=== PATIENT | female | born 1955 | race Caucasian/White ===

== ENCOUNTER 2016-11-05 15:15 | Emergency (ER) | payer OTHER ==
[2016-11-05 15:25] VITALS: BP 121/93; PULSE 90; TEMP 98.3; BMI 25.0
[2016-11-05] MEDS ORDERED: ACETAMINOPHEN 325 MG TABLET (FP) PO ONE (16:20)
[2016-11-05] MEDS ORDERED: ACETAMINOPHEN 325 MG TABLET (FP) ONE (16:24)
--- NOTE | 2016-11-05 16:32 | PDOC ---
History of Present Illness - General Chief Complaint: Injury Stated Complaint: FELL Time Seen by Provider: 11/05/16 15:50 History Source: Patient Exam Limitations: No Limitations - History of Present Illness Initial Comments: 11/05/16 16:24 61 yr female states she was walking on the sidewalk and a child ran into her causing her to fall striking her right forehead and right side breast, knee on sidewalk. No LOC, pt c/o pain to forehead and knee, right chest wall. no dizzyness or headache. Occurred: reports: just prior to arrival Severity: reports: mild Pain Location: reports: face Method of Injury: Yes: fall Loss of Consciousness: no loss of consciousness Past History - Past Medical History Allergies/Adverse Reactions: Allergies Allergy/AdvReac Type Severity Reaction Status Date / Time No Known Allergies Allergy Verified 11/05/16 15:21 Home Medications: Ambulatory Orders Cephalexin [Keflex] 500 mg PO BID #14 capsule 06/05/16 Silver Sulfadiazine 1% Top Cr [Silvadene -] 1 applic TP BID #2 jar 06/05/16 Other medical history: denies - Psycho/Social/Smoking Cessation Hx Anxiety: No Suicidal Ideation: No Smoking History: Never smoked Have you smoked in the past 12 months: No Information on smoking cessation initiated: No Hx Alcohol Use: No Drug/Substance Use Hx: No Substance Use Type: None Trauma Specific PMHX - Complaint Specific PMHX Arthritis: No Back Injury: No Neck Injury: No Hx Sacro Iliac Joint Dysfunction: No Review of Systems - Review of Systems Able to Perform ROS?: Yes Is the patient limited Algerian proficient: No Constitutional: No: Symptoms Reported HEENTM: No: Symptoms Reported Respiratory: No: Symptoms reported Cardiac (ROS): No: Symptoms Reported ABD/GI: No: Symptoms Reported : No: Symptoms Reported Musculoskeletal: Yes: See HPI *Physical Exam - Vital Signs Last Vital Signs Temp Pulse Resp BP Pulse Ox 98.3 F 90 20 121/93 96 11/05/16 15:22 11/05/16 15:22 11/05/16 15:22 11/05/16 15:22 11/05/16 15:22 - Physical Exam General Appearance: Yes: Nourished, Appropriately Dressed HEENT: positive: EOMI, HUNTER, Normal ENT Inspection, TMs Normal, Pharynx Normal, Other (right temporal area with brusing, swelling abrasion 2cm x2cm) Respiratory/Chest: positive: Chest Tender (under right breast ), Lungs Clear, Normal Breath Sounds Cardiovascular: positive: Regular Rhythm, Regular Rate Gastrointestinal/Abdominal: positive: Normal Bowel Sounds, Soft. negative: Tender Musculoskeletal: positive: Normal Inspection Extremity: positive: Normal Capillary Refill, Normal Inspection, Other ( abrasion right knee , nv intact FROM ) Integumentary: positive: Normal Color, Dry, Warm, Ecchymosis (right temporal area ), Bruising Neurologic: positive: Fully Oriented, Alert, Normal Mood/Affect, Normal Response , Motor Strength 10/11 ED Treatment Course - RADIOLOGY Radiology Studies Ordered: Category Date Time Status HEAD CT WITHOUT CONTRAST [CT] Stat CT Scan 11/05/16 16:19 Ordered CHEST PA & LAT [RAD] Stat Radiology 11/05/16 16:19 Ordered RIBS RIGHT SIDE [RAD] Stat Radiology 11/05/16 16:19 Ordered Medical Decision Making - Medical Decision Making 11/05/16 16:35 cc: trip and fall injured right forehead/voodoo area, right knee andright chest breast area no bruising on breast or chest area abrasion to forehead, pt states tetanus is UTD pt has FROM of the right knee, mild abrasion to the knee seen wound care performed, ice pack placed, tylenol and xrays, head ct done 11/05/16 17:[address] is negative will dc home with strict follow up with PMD tomorrow *DC/Admit/Observation/Transfer Diagnosis at time of Disposition: Multiple contusions Fall Qualifiers: Encounter type: initial encounter Qualified Code(s): W19.XXXA - Unspecified fall, initial encounter - Discharge Dispostion Disposition: HOME Condition at time of disposition: Good - Referrals Referrals: Prince Mcintyre MD [Primary Care Provider] - - Patient Instructions Additional Instructions: apply ice every 2hrs for 20 minutes to the face keep clean with soap and water take motrin 600mg every 6hrs for pain as needed follow with your DOCTOR TOMORROW for a follow up exam, this is important to continue your evaluation Return to ER for any worsening symptoms - Post Discharge Activity Work/School Note: Back to Work
== END 2016-11-05 17:56 | disposition home or self-care (01) ==
LOC: JERFT 15:15
DX: S00.83XA Contusion of other part of head, initial encounter (principal); S20.01XA Contusion of right breast, initial encounter; S80.01XA Contusion of right knee, initial encounter; W03.XXXA Other fall on same level due to collision with another person, initial encounter; Y93.01 Activity, walking, marching and hiking; Y92.480 Sidewalk as the place of occurrence of the external cause
CPT/HCPCS: 70450-TC; 71020-TC; 71101-TC-RT; 73562-TC-RT; 99281-25

== ENCOUNTER 2018-02-11 13:53 | Inpatient (IN) | payer OTHER ==
[2018-02-11 13:58] VITALS: BMI 24.1
--- NOTE | 2018-02-11 16:34 | PDOC ---
History of Present Illness - General Chief Complaint: Pain Stated Complaint: ABD PAIN (PCP SENT) Time Seen by Provider: 02/11/18 16:34 History Source: Patient, Spouse Exam Limitations: No Limitations - History of Present Illness Initial Comments: 02/11/18 16:50 62 year old female with no PMH sent to ED by dr. Mcintyre for abdominal pain x1 week. She states her abdominal pain is diffuse, non-radiating, described as "feeling like gas", no alleviating or aggravating factors. She also admits to nausea, vomiting, sweats, dysuria. She denies diarrhea, blood in stool, chest pain, shortness of breath, headache, fever, chills. Last BM Friday. She sates she had a RUQ US performed 02/06/18, report states: gallbladder polyps, no cholelithiasis, diffuse fatty liver infiltration. She states she has a CT of her abdomen scheduled for next Friday, but her pain has persisted and she came to the ED. Last ate at 1100 am today. Allergies - NKDA Denies nicotine use. Denies everyday etoh use. Denies illicit drug use. PCP - Miguelina Past History - Past Medical History Allergies/Adverse Reactions: Allergies Allergy/AdvReac Type Severity Reaction Status Date / Time No Known Allergies Allergy Verified 02/11/18 13:58 Home Medications: Ambulatory Orders NK [No Known Home Medication] 02/11/18 COPD: No - Suicide/Smoking/Psychosocial Hx Smoking History: Never smoked Have you smoked in the past 12 months: No Hx Alcohol Use: No Drug/Substance Use Hx: No Substance Use Type: None Review of Systems - Review of Systems Able to Perform ROS?: Yes Comments:: 02/11/18 16:53 General: denies fever, chills, night sweats, generalized weakness. HEENT: denies sore throat, rhinorrhea, ear pain. Heart: denies chest pain, palpitations, syncope, lower extremity swelling, diaphoresis. Respiratory: denies shortness of breath, cough, sputum production, hematemesis. Abdomen: admits to abdominal pain, nausea, vomiting. denies diarrhea, constipation, blood in stool. : admits to dysuria. denies increased urinary frequency, hematuria, urinary incontinence, flank pain. Back: denies back pain. Musculoskeletal: denies joint pain, muscle pain, joint swelling. Neurological: denies headache, dizziness, numbness, tingling, weakness. Skin: denies rash, laceration, abrasion. *Physical Exam - Vital Signs Last Vital Signs Temp Pulse Resp BP Pulse Ox 99.3 F 96 H 18 123/73 97 02/11/18 13:54 02/11/18 13:54 02/11/18 13:54 02/11/18 13:54 02/11/18 13:54 - Physical Exam Comments: 02/11/18 17:04 Appearance: comfortable. HEENT: head is normocephalic, atraumatic. EOMI. PERRLA. oral mucosa dry. Neck: supple. Full ROM. Heart: regular rhythm. no murmurs, rubs or gallops. Lungs: clear to auscultation bilaterally. no crackles, rhonchi or wheezing. no stridor. Abdomen: soft, distended. nontender to palpation. hyperactive bowel sounds. no rebound, guarding. CVA tenderness negative bilaterally. Rectal: small amount of soft stool in rectum. good rectal tone. Extremities: Peripheral pulses intact and equal. No lower extremity edema. Neurological: Alert. Oriented x3. CN 2-12 grossly intact. Moves all four extremities. Psych: answers questions appropriately, but requires questions to be clarified or repeated. Heart Score/ECG Review - ECG Impressions Comment:: 02/11/18 19:04 Rate 83, regular rhythm, normal axis, no acute ST changes. ED Treatment Course - LABORATORY CBC & Chemistry Diagram: 02/12/18 06:00 02/12/18 06:00 Medical Decision Making - Medical Decision Making 02/11/18 17:02 62 year old female sent by Dr. Mcintyre for abdominal pain x1 week. Nontender on examination, abdomen distended. Initial Vital Signs Temp Pulse Resp BP Pulse Ox 99.3 F 96 H 18 123/73 97 02/11/18 13:54 02/11/18 13:54 02/11/18 13:54 02/11/18 13:54 02/11/18 13:54 Pending labs, CT abdomen/pelvis, EKG, CXR. 02/11/18 18:08 CBC - no leukocytosis. no anemia. CMP hemolyzed per lab. Will re-draw. 02/11/18 18:36 CT abdomen/pelvis report - high grade distal SBO. 0.3 cm non-obstructing left renal calculus. IV fluids ordered. NG tube to be placed. Surgery paged. 02/11/18 18:58 NG tube placed in the right nostril without difficulty. Non-bloody liquid suctioned. Pt reports that she is passing gas. 02/11/18 19:13 Dr. Ortiz spoke with Dr. Razo about the case, they will accept the consult. Pt will be admitted for SBO. I spoke with the patient and her about the plan for care, with which they agree. CMP normal. UA trace LE, <5 WBC, (+) epithelial cells identified. *DC/Admit/Observation/Transfer Diagnosis at time of Disposition: SBO (small bowel obstruction) - Discharge Dispostion Condition at time of disposition: Stable Decision to Admit order: Yes - Referrals - Patient Instructions - Post Discharge Activity
--- NOTE | 2018-02-11 16:42 | PDOC ---
Attending Attestation - HPI HPI: 02/11/18 17:54 The patient is a 62 year old female, with no significant past medical history, who presents to the ED complaining of abdominal pain for the past week, as well as nausea, vomiting, diaphoresis and dysuria. She describes her abdominal pain as diffused throughout, ranging from mild to moderate, without radiation or modifying factors. She sates she had an abdominal ultrasound on 02/06/18, revealing gallbladder polyps, diffuse fatty liver infiltration. Her last bowel movement was yesterday. The patient denies chest pain, shortness of breath, headache and dizziness. Denies fever, chills, diarrhea or constipation. Allergies: None Past surgical history: None reported Social History: No alcohol, tobacco or drug use reported - Physicial Exam PE: 02/11/18 18:07 Constitutional: Awake, alert, oriented. No acute distress. Head: Normocephalic. Atraumatic Eyes: PERRL. EOMI. Conjunctivae are not pale. ENT: (+) Mucous membranes are dry, tongue is dry and cracked. Posterior pharynx without exudates or erythema. Uvula midline. Neck: Supple. Full ROM. No lymphadenopathy. Cardiovascular: Regular rate. Regular rhythm. S1, S2 regular. Distal pulses are 2+ and symmetric. Pulmonary/Chest: No evidence of respiratory distress. Clear to auscultation bilaterally No wheezing, rales or rhonchi. Abdominal: soft, (+) distended. nontender to palpation. (+) hyperactive bowel sounds. No palpable masses. Back: No CVA tenderness. Musculoskeletal: No edema. No cyanosis. No clubbing. Full range of motion in all extremities. Nocalf tenderness. Radial/pedal pulses are intact and 2+ bilaterally Skin: Skin is warm and dry. No petechiae. No purpura. Neurological: Alert and oriented to person, place, and time. Cranial nerves II -XII are grossly intact. Normal speech. Strength is grossly symmetric. No sensory deficits. Psychiatric: Good eye contact. Normal interaction, affect and behavior. <Igor Brasher - Last Filed: 02/11/18 18:33> - Resident Resident Name: Claire Valdez - ED Attending Attestation I have performed the following: I have examined & evaluated the patient, The case was reviewed & discussed with the resident, I agree w/resident's findings & plan, Exceptions are as noted - Critical Care Time Total Critical Care Time: 45 Critical Care Statement: The care of this patient involved high complexity decision making to prevent further life threatening deterioration of the patient 's condition and/or to evaluate & treat vital organ system(s) failure or risk of failure. - Medical Decision Making 02/11/18 16:42 I, Dr. Darby Ortiz, DO, attest that this document has been prepared under my direction and personally reviewed by me in its entirety. I further attest, that it accurately reflects all work, treatment, procedures and medical decision -making performed by me. 02/11/18 18:21 a/p: 62yo female with distended abd -last bm was end of january -had mild incontence of stool yesterday -concern for constipation, obstipation, obstruction -outpt RUQ u/s showed gallbladder poly -heme negative stool as outpt -Dr. Mcintyre is PMD -will send labs, ua, ct abd/pelvis -pt dehydrated on exam -will give ivf hydration 02/11/18 19:06 pt with SBO on ct NGT placed discussed with Dr. Razo from surgery who will review the films pt without hx of abd surgery lactate and type and screen added pt npo since 11am 02/11/18 19:[address] Razo will be down to eval the patient [facility] call placed to Dr. Mcintyre 02/11/18 19:15 case discussed with Letha [facility] who [facility] pt to service <Darby Ortiz - Last Filed: 02/11/18 19:16> Heart Score/ECG Review - ECG Intrepretation Comment:: 02/11/18 19:16 sinus at 83, nl axis, nl interval, no acute st/t wave findings <Darby Ortiz - Last Filed: 02/11/18 19:16>
[2018-02-11] MEDS ORDERED: ONDANSETRON 4 MG/2 ML VIAL IVPUSH ONE ×2 (17:20→19:04)
[2018-02-11] MEDS ORDERED: SODIUM CHLORIDE 0.9% 1000 ML INFUS.BAG IV ONE ×2 (17:20→18:44)
[2018-02-11 17:52] LABS: BASO % 0.5 % (0-2.0); EOS % 0.3 % (0-4.5); HEMATOCRIT 45.8 % (32.4-45.2); HEMOGLOBIN 15.2 GM/dL (10.7-15.3); LYMPH % 17.3 % (8-40); MCHC 33.3 g/dl (32.0-36.0); MEAN CELL VOLUME 87.4 fl (80-96); MEAN PLT VOLUME 9.3 fl (7.5-11.1); MONO % 9.8 % (3.8-10.2); NEUT % 72.1 % (42.8-82.8); PLATELET COUNT 226 K/MM3 (134-434); RBC 5.25 M/mm3 (3.60-5.2); RDW 13.9 % (11.6-15.6)
[2018-02-11 18:14] LABS: INR 1.08 (0.83-1.09); PROTHROMBIN TIME (PATIENT) 12.2 SEC (9.7-13.0)
[2018-02-11] MEDS ORDERED: ONDANSETRON 4 MG/2 ML VIAL ONE (18:40)
[2018-02-11] MEDS ORDERED: SODIUM CHLORIDE 1,000 ML IV SCH (18:45)
[2018-02-11 19:01] LABS: URINE APPEARANCE SLCLOUDY; URINE BILIRUBIN NEGATIVE (<2.0 mg/dL); URINE COLOR AMBER; URINE GLUCOSE (UA) NEGATIVE (NEGATIVE); URINE KETONE 1+ (NEGATIVE); URINE LEUK ESTERASE TRACE (NEGATIVE); URINE NITRITE NEGATIVE (NEGATIVE); URINE UROBILINOGEN NEGATIVE mg/dL (0.2-1.0)
[2018-02-11 19:05] LABS: EPI CELLS RARE /HPF (FEW); URINE MUCUS FEW; URINE PROTEIN 1+ (NEGATIVE)
[2018-02-11] MEDS ORDERED: morphine CARPU-JECT 4 MG/1 ML DISP.SYRIN IVPUSH ONE ×2 (19:05→19:06)
[2018-02-11] MEDS ORDERED: ONDANSETRON 4 MG/2 ML VIAL IVPUSH PRN (19:18)
[2018-02-11 19:34] LABS: ALBUMIN 4.2 g/dl (3.4-5.0); ALK PHOS 116 U/L (45-117); ANION GAP 11 MMOL/L (8-16); BLOOD UREA NITROGEN 23 mg/dL (7-18); CALCIUM 9.8 mg/dL (8.5-10.1); CHLORIDE 106 mmol/L (98-107); CO2 25 mmol/L (21-32); CREATININE 0.6 mg/dL (0.55-1.02); GLUCOSE,RANDOM 99 mg/dL (74-106); LIPASE 130 U/L (73-393); POTASSIUM 4.1 mmol/L (3.5-5.1); SGOT/AST 21 U/L (15-37); SGPT/ALT 40 U/L (12-78); SODIUM 142 mmol/L (136-145); TOT PROT 7.5 g/dl (6.4-8.2)
--- NOTE | 2018-02-11 23:47 | CONSULT ---
Consult Consult Specialty:: General Surgery Referred by:: Darby Ortiz Reason for Consultation:: SBO - History of Present Illness Chief Complaint: abdominal pain, N/V, distention, constipation History of Present Illness: 62yo F with no PMH/PSH on no medications, but per "a little slow," presented with 1 week of generalized abdominal pain, distention and constipation , associated with N/V. Last BM was several days ago, but one chart entry indicates yesterday. Pt is poor to fair historian only. She had been given medication by Dr. Mcintyre to "make her go," resulting in some BMs, but she still had pain and bloating. She has not been eating much. In ER, she has normal wbc, chem being repeated for hemolysis, lactate pending, Hb 15 suggests dehydration, and CT was done showing high grade distal SBO without clear transition point, but small area suggestive of polypoid mass vs collapsed bowel loops against right mid-abdominal wall. Per ER, rectal showed some soft brown stool in vault, but no impaction. ER placed NG tube, and pt reports feeling a little better, with no sig abd pain anymore. Surgery was asked to assess. She was seen in ER with at bedside, who assisted with history a bit. The patient does seem possibly mildly mentally retarded or slow, though is able to answer questions and communicate; insight/understanding of her current condition is poor to fair. - History Source History Provided By: Patient, Family Member ( at bedside) Limitations to Obtaining History: Poor Historian - Past Medical History LITIGATION CLAIM REPRESENTATIVE: Yes: Other (?mild MR) Reproductive: Yes: Postmenopausal Additional Medical History: denies - Past Surgical History Past Surgical History: Yes: Colonoscopy (at age 50) Additional Surgical History: none - Alcohol/Substance Use Hx Alcohol Use: No History of Substance Use: reports: None - Smoking History Smoking history: Never smoked Have you smoked in the past 12 months: No - Social History Usual Living Arrangement: With Spouse Home Medications - Allergies Allergies/Adverse Reactions: Allergies Allergy/AdvReac Type Severity Reaction Status Date / Time No Known Allergies Allergy Verified 02/11/18 13:58 - Home Medications Home Medications: Ambulatory Orders NK [No Known Home Medication] 02/11/18 Family Disease History - Family Disease History Family History: Unable to Obtain (pt cannot offer) Review of Systems Unable to obtain ROS, reason: limited - poor historian - Review of Systems Constitutional: denies: Chills, Fever Eyes: denies: Blurred Vision, Recent Change in Vision HENT: denies: Difficult Swallowing, Throat Pain Neck: denies: Swollen Glands, Tenderness Cardiovascular: denies: Chest Pain, Edema Respiratory: denies: Cough, SOB Gastrointestinal: reports: Abdominal Pain (with hpi), Bloating (with hpi), Constipation (with hpi), Nausea, Vomiting (with hpi). denies: Diarrhea Genitourinary: denies: Burning, Dysuria Musculoskeletal: denies: Back Pain, Joint Pain Integumentary: denies: Change in Color, Rash Neurological: reports: Pre-Existing Deficit ("a little slow" per ). denies: Dizziness, Headache Physical Exam Vital Signs: Vital Signs Temperature 99.3 F 02/11/18 13:54 Pulse Rate 78 02/11/18 21:50 Respiratory Rate 18 02/11/18 21:50 Blood Pressure 130/78 02/11/18 21:50 O2 Sat by Pulse Oximetry (%) 94 L 02/11/18 21:50 Constitutional: Yes: Well Nourished, No Distress, Calm Eyes: Yes: Conjunctiva Clear, EOM Intact HENT: Yes: Atraumatic, Normocephalic, Other (NGT in place - resecured) Neck: Yes: Supple, Trachea Midline Cardiovascular: Yes: Regular Rate and Rhythm Respiratory: Yes: Regular, CTA Bilaterally Gastrointestinal: Yes: Soft, Distention, Hypoactive Bowel Sounds. No: Tenderness, Tenderness, Epigastrium ...Rectal Exam: Yes: Deferred, Other (per ER - small amt soft brown stool in vault) Renal/: No: CVA Tenderness - Left, CVA Tenderness - Right Musculoskeletal: No: Joint Stiffness, Joint Swelling Extremities: No: Cool, Cyanosis Edema: No Peripheral Pulses WNL: Yes Integumentary: No: Jaundice, Rash Neurological: Yes: Alert, Oriented (but slow to respond at times, simple, only fair historian), Pre-Existing Deficit (mild mental retardation?) Psychiatric: Yes: Alert. No: Agitated Labs: CBC, BMP 02/11/18 17:26 02/11/18 18:41 CMP Sodium 142 mmol/L (136-145) 02/11/18 18:41 Potassium 4.1 mmol/L (3.5-5.1) 02/11/18 18:41 Chloride 106 mmol/L (98-107) 02/11/18 18:41 Carbon Dioxide 25 mmol/L (21-32) 02/11/18 18:41 Anion Gap 11 MMOL/L (8-16) 02/11/18 18:41 BUN 23 mg/dL (7-18) H 02/11/18 18:41 Creatinine 0.6 mg/dL (0.55-1.02) 02/11/18 18:41 Creat Clearance w eGFR > 60 (>60) 02/11/18 18:41 Random Glucose 99 mg/dL (74-106) 02/11/18 18:41 Lactic Acid 0.9 mmol/L (0.0-2.0) 02/11/18 19:15 Calcium 9.8 mg/dL (8.5-10.1) 02/11/18 18:41 Magnesium 2.3 mg/dL (1.8-2.4) 02/11/18 18:41 Total Bilirubin 1.0 mg/dL (0.2-1.0) 02/11/18 18:41 AST 21 U/L (15-37) 02/11/18 18:41 ALT 40 U/L (12-78) 02/11/18 18:41 Alkaline Phosphatase 116 U/L (45-117) 02/11/18 18:41 Total Protein 7.5 g/dl (6.4-8.2) 02/11/18 18:41 Albumin 4.2 g/dl (3.4-5.0) 02/11/18 18:41 Lipase 130 U/L (73-393) 02/11/18 18:41 INR, PTT INR 1.08 (0.83-1.09) 02/11/18 17:40 Urine Test Results Urine Color Cindy 02/11/18 18:50 Urine Appearance Slcloudy 02/11/18 18:50 Urine pH 5.0 (5.0-8.0) 02/11/18 18:50 Ur Specific [place] 1.033 (1.001-1.035) 02/11/18 18:50 Urine Protein 1+ (NEGATIVE) H 02/11/18 18:50 Urine Glucose (UA) Negative (NEGATIVE) 02/11/18 18:50 Urine Ketones 1+ (NEGATIVE) H 02/11/18 18:50 Urine Blood Negative (NEGATIVE) 02/11/18 18:50 Urine Nitrite Negative (NEGATIVE) 02/11/18 18:50 Urine Bilirubin Negative (<2.0 mg/dL) 02/11/18 18:50 Ur Leukocyte Esterase Trace (NEGATIVE) 02/11/18 18:50 Ur Epithelial Cells Rare /HPF (FEW) 02/11/18 18:50 Urine Mucus Few 02/11/18 18:50 Imaging - Results Cat Scan: Report Reviewed, Image Reviewed (images personally reviewed - multiple dilated, gas-filled small bowel loops with decompressed distal loops, decompressed colon and some stool distally; possible small mass vs collapsed bowel loops just under right abdominal wall off midline; no free air or fluid; no clear transition point) Problem List - Problems (1) Intestinal obstruction Assessment/Plan: high grade SBO of unclear cause in pt without surgical history admitted to medicine NGT placed in ER NPO/IVF/NGT to low cont suction IV hydration/resuscitation would use nonnarcotic pain meds iv prn discussed briefly with pt and that surgery will likely be necessary to identify and correct cause of obstruction pt is reluctant, but is willing and trying to reassure her briefly outlined potential consequences of no surgery - bowel ischemia, perforation, sepsis, need for emergent surgery, increasing pain -- pt would not want that, but does not seem clearly willing (?or able?) to consent to surgery quite yet she voices belief that she is already a bit better, and that "what we are doing " is helping would consider psych consult to ensure capacity to consent trend labs - lactate tonight 0.9 will f/u in am to rediscuss operation and plan timing Code(s): K56.609 - UNSP INTESTNL OBST, UNSP TO PARTIAL VERSUS COMPLETE OBST Qualifiers: Intestinal obstruction type: other intestinal obstruction Intestinal obstruction extent: unspecified extent Qualified Code(s): K56.699 - Other intestinal obstruction unspecified as to partial versus complete obstruction (2) Generalized abdominal pain Code(s): R10.84 - GENERALIZED ABDOMINAL PAIN (3) Abdominal distention Code(s): R14.0 - ABDOMINAL DISTENSION (GASEOUS) (4) Dehydration Code(s): E86.0 - DEHYDRATION (5) Nausea and vomiting Code(s): R11.2 - NAUSEA WITH VOMITING, UNSPECIFIED Qualifiers: Vomiting type: unspecified Vomiting Intractability: non-intractable Qualified Code(s): R11.2 - Nausea with vomiting, unspecified (6) Mental retardation Code(s): F79 - UNSPECIFIED INTELLECTUAL DISABILITIES
[2018-02-12] MEDS: DEXTROSE 5%-0.45% SALINE 1,000 ML IV SCH ×2 (00:14→10:53)
[2018-02-12 07:19] LABS: BASO % 0.5 % (0-2.0); EOS % 1.7 % (0-4.5); HEMATOCRIT 40.9 % (32.4-45.2); HEMOGLOBIN 13.6 GM/dL (10.7-15.3); LYMPH % 17.2 % (8-40); MCH 29.1 pg (25.7-33.7); MCHC 33.1 g/dl (32.0-36.0); MEAN CELL VOLUME 87.8 fl (80-96); MEAN PLT VOLUME 9.1 fl (7.5-11.1); MONO % 9.6 % (3.8-10.2); PLATELET COUNT 169 K/MM3 (134-434); RBC 4.66 M/mm3 (3.60-5.2); RDW 13.9 % (11.6-15.6); WHITE BLOOD COUNT 5.3 K/mm3 (4.0-10.0)
--- NOTE | 2018-02-12 07:41 | HP ---
CHIEF COMPLAINT: Abdominal Pain PCP: Dr Mcintyre HISTORY OF PRESENT ILLNESS: This is a 62 y/o woman with no significant past medical history. Who presents to the ED with sharp intermittent abdominal pain x 1 week. The patient states that she could not tolerate anything: cold cereal, soup, or toast having episodes of bilious vomiting today. Patient endorses being constipated and was taking medication for it, but could not recall the name. The patient endorsed having a loose watery BM. Patient denies fever, cough, dizziness, SOB, CP, hematochezia, melena, hematuria, dysuria ER course was notable for: (1) CTAP- High Grade- Distal Small Bowel Obstruction (2) EKG- NSR with no ST or TWI (3) Recent Travel: None PAST MEDICAL HISTORY: none PAST SURGICAL HISTORY: none Social History: Smoking: Never Alcohol: None Drugs: None Lives with spouse Family History: Non-Contributory Allergies No Known Allergies Allergy (Verified 02/11/18 13:58) HOME MEDICATIONS: Home Medications Medication Instructions Recorded NK [No Known Home Medication] 02/11/18 REVIEW OF SYSTEMS CONSTITUTIONAL: diaphoresis Absent: fever, chills, generalized weakness, malaise, loss of appetite, weight change HEENT: Absent: rhinorrhea, nasal congestion, throat pain, throat swelling, difficulty swallowing, mouth swelling, ear pain, eye pain, visual changes CARDIOVASCULAR: Absent: chest pain, syncope, palpitations, irregular heart rate, lightheadedness , peripheral edema RESPIRATORY: Absent: cough, shortness of breath, dyspnea with exertion, orthopnea, wheezing, stridor, hemoptysis GASTROINTESTINAL:abdominal pain, abdominal distension, nausea, vomiting, diarrhea, Absent: constipation, melena, hematochezia GENITOURINARY: Absent: dysuria, frequency, urgency, hesitancy, hematuria, flank pain, genital pain MUSCULOSKELETAL: Absent: myalgia, arthralgia, joint swelling, back pain, neck pain SKIN: Absent: rash, itching, pallor HEMATOLOGIC/IMMUNOLOGIC: Absent: easy bleeding, easy bruising, lymphadenopathy, frequent infections ENDOCRINE: Absent: unexplained weight gain, unexplained weight loss, heat intolerance, cold intolerance NEUROLOGIC: Absent: headache, focal weakness or paresthesias, dizziness, unsteady gait, seizure, mental status changes, bladder or bowel incontinence PSYCHIATRIC: Absent: anxiety, depression, suicidal or homicidal ideation, hallucinations. PHYSICAL EXAMINATION Vital Signs - 24 hr 02/11/18 02/11/18 02/11/18 13:54 20:25 21:50 Temperature 99.3 F Pulse Rate 96 H 78 Respiratory 18 18 Rate Blood Pressure 123/73 130/78 O2 Sat by Pulse 97 98 94 L Oximetry (%) 02/12/18 05:55 Temperature 98.6 F Pulse Rate 81 Respiratory 18 Rate Blood Pressure 118/64 O2 Sat by Pulse Oximetry (%) GENERAL: Awake, alert, and fully oriented, in no acute distress. HEAD: Normal with no signs of trauma. EYES: Pupils equal, round and reactive to light, extraocular movements intact, sclera anicteric, conjunctiva clear. No lid lag. EARS, NOSE, THROAT: Ears normal, nares patent, oropharynx clear without exudates. Dry mucous membranes. NGT to R-Nare NECK: Normal range of motion, supple without lymphadenopathy, JVD, or masses. LUNGS: Breath sounds equal, clear to auscultation bilaterally. No wheezes, and no crackles. No accessory muscle use. HEART: Regular rate and rhythm, normal S1 and S2 without murmur, rub or gallop. ABDOMEN: Soft, nontender, +distended, hypoactive bowel sounds, no guarding, no rebound, no masses. No hepatomegaly or splenomegaly. MUSCULOSKELETAL: Normal range of motion at all joints. No bony deformities or tenderness. No CVA tenderness. UPPER EXTREMITIES: 2+ pulses, warm, well-perfused. No cyanosis. No clubbing. No peripheral edema. LOWER EXTREMITIES: 2+ pulses, warm, well-perfused. No calf tenderness. No peripheral edema. NEUROLOGICAL: Cranial nerves II-XII intact. Normal speech. Gait not observed PSYCHIATRIC: Cooperative. Good eye contact. Flat mood and affect. SKIN: Warm, dry, normal turgor, no rashes or lesions noted, normal capillary refill. Laboratory Results - last 24 hr 02/11/18 02/11/18 02/11/18 17:26 17:26 17:40 WBC 7.0 RBC 5.25 H Hgb 15.2 Hct 45.8 H MCV 87.4 MCH 29.0 MCHC 33.3 RDW 13.9 Plt Count 226 MPV 9.3 Absolute Neuts (auto) 5.1 Neutrophils % 72.1 Lymphocytes % 17.3 Monocytes % 9.8 Eosinophils % 0.3 Basophils % 0.5 Nucleated RBC % 0 PT with INR 12.20 INR 1.08 PTT (Actin FS) 32.0 Sodium Cancelled Potassium Cancelled Chloride Cancelled Carbon Dioxide Cancelled Anion Gap Cancelled BUN Cancelled Creatinine Cancelled Creat Clearance w eGFR Cancelled Random Glucose Cancelled Lactic Acid Calcium Cancelled Magnesium Total Bilirubin Cancelled AST Cancelled ALT Cancelled Alkaline Phosphatase Cancelled Total Protein Cancelled Albumin Cancelled Lipase Cancelled Urine Color Urine Appearance Urine pH Ur Specific [place] Urine Protein Urine Glucose (UA) Urine Ketones Urine Blood Urine Nitrite Urine Bilirubin Urine Urobilinogen Ur Leukocyte Esterase Urine WBC (Auto) Urine RBC (Auto) Ur Epithelial Cells Urine Mucus Blood Type Antibody Screen 02/11/18 02/11/18 02/11/18 18:41 18:41 18:50 WBC RBC Hgb Hct MCV MCH MCHC RDW Plt Count MPV Absolute Neuts (auto) Neutrophils % Lymphocytes % Monocytes % Eosinophils % Basophils % Nucleated RBC % PT with INR INR PTT (Actin FS) Sodium 142 Potassium 4.1 Chloride 106 Carbon Dioxide 25 Anion Gap 11 BUN 23 H Creatinine 0.6 Creat Clearance w eGFR > 60 Random Glucose 99 Lactic Acid Calcium 9.8 Magnesium 2.3 Total Bilirubin 1.0 AST 21 ALT 40 Alkaline Phosphatase 116 Total Protein 7.5 Albumin 4.2 Lipase 130 Urine Color Cindy Urine Appearance Slcloudy Urine pH 5.0 Ur Specific [place] 1.033 Urine Protein 1+ H Urine Glucose (UA) Negative Urine Ketones 1+ H Urine Blood Negative Urine Nitrite Negative Urine Bilirubin Negative Urine Urobilinogen Negative Ur Leukocyte Esterase Trace Urine WBC (Auto) 4 Urine RBC (Auto) 66 Ur Epithelial Cells Rare Urine Mucus Few Blood Type Antibody Screen 02/11/18 02/11/18 19:15 19:15 WBC RBC Hgb Hct MCV MCH MCHC RDW Plt Count MPV Absolute Neuts (auto) Neutrophils % Lymphocytes % Monocytes % Eosinophils % Basophils % Nucleated RBC % PT with INR INR PTT (Actin FS) Sodium Potassium Chloride Carbon Dioxide Anion Gap BUN Creatinine Creat Clearance w eGFR Random Glucose Lactic Acid 0.9 Calcium Magnesium Total Bilirubin AST ALT Alkaline Phosphatase Total Protein Albumin Lipase Urine Color Urine Appearance Urine pH Ur Specific [place] Urine Protein Urine Glucose (UA) Urine Ketones Urine Blood Urine Nitrite Urine Bilirubin Urine Urobilinogen Ur Leukocyte Esterase Urine WBC (Auto) Urine RBC (Auto) Ur Epithelial Cells Urine Mucus Blood Type B NEGATIVE Antibody Screen Negative ) ASSESSMENT/PLAN: This is a 62 y/o woman Admitted for SBO for further evaluation of their emergent medical condition. Plan: Will admit to M/S CTAP- High Grade SBO No leukocytosis without L-shift Lactate-nl Appreciate Surgical consult Continue NGT Tylenol IV prn Monitor CBC, BMP Monitor vitals EKG- NSR no ST or TWI Chest Xray- no acute pathology UA- showed mild dehydration FEN- D51/2NS@75cc/hr, Replete lytes prn, NPO DVT ppx- OOB, SCDs, Heparin SQ Code Status: Full Code Dispo: Requires Inpatient Care Problem List - Problem (1) SBO (small bowel obstruction) Code(s): K56.609 - UNSP INTESTNL OBST, UNSP TO PARTIAL VERSUS COMPLETE OBST (2) Abdominal distention Code(s): R14.0 - ABDOMINAL DISTENSION (GASEOUS) (3) Generalized abdominal pain Code(s): R10.84 - GENERALIZED ABDOMINAL PAIN Visit type - Emergency Visit Emergency Visit: Yes ED Registration Date: 02/11/18 Care time: The patient presented to the Emergency Department on the above date and was hospitalized for further evaluation of their emergent condition. - New Patient This patient is new to me today: Yes Date on this admission: 02/11/18 - Critical Care Critical Care patient: No Hospitalist Screening - Colonoscopy Questionnaire Colonoscopy Questionnaire: Colonoscopy Questionnaire - Patient: 50 - 75 years old and never had a screening colonoscopy: No History of colon or rectal polyps, or CA: No History of IBD, Crohn's disease or UC: No History of abdominal radiation therapy as a child: No - Relative: 1 with colon or rectal CA, or polyps at age 60 or younger: No Colon or rectal CA diagnosed at age 45 or younger: No Multiple relatives with colon or rectal CA: No - Outcome: Screening Result: Negative Screen
[2018-02-12 07:55] LABS: ANION GAP 11 MMOL/L (8-16); BLOOD UREA NITROGEN 15 mg/dL (7-18); CALCIUM 8.6 mg/dL (8.5-10.1); CHLORIDE 109 mmol/L (98-107); CO2 22 mmol/L (21-32); GLUCOSE,RANDOM 103 mg/dL (74-106); POTASSIUM 3.7 mmol/L (3.5-5.1); SODIUM 142 mmol/L (136-145)
[2018-02-12 07:58] LABS: CREATININE 0.3 mg/dL (0.55-1.02)
[2018-02-12] MEDS ORDERED: ACETAMINOPHEN 1000 MG/100 ML VIAL (NON FORMULARY) IVPB PRN ×2 (11:17→18:39)
--- NOTE | 2018-02-12 11:27 | PN ---
Progress Note, Physician History of Present Illness: Pt with high grade SBO, NPO/NGT/IVF, no abdominal pain now. Was just up to bathroom to void, but no BM or flatus. She c/o headache and sore throat from tube. She is mildly mentally retarded, and does seem to understand that surgery is necessary to identify and correct cause of obstruction, but only in simple terms. Spoke with her by phone at bedside as well, and they are both agreeable to surgery today. He will be here in a couple of hours, and will sign or cosign consent. - Current Medication List Current Medications: Active Medications Acetaminophen (Ofirmev Injection -) 1,000 mg IVPB Q6H PRN PRN Reason: Pain Level 1 - 10 Dextrose/Sodium Chloride (D5-1/2ns -) 1,000 mls @ 100 mls/hr IV ASDIR LEO Last Admin: 02/12/18 10:53 Dose: 100 mls/hr Ondansetron HCl (Zofran Injection) 4 mg IVPUSH Q6H PRN PRN Reason: NAUSEA - Objective Vital Signs: Vital Signs Temperature 98.6 F 02/12/18 05:55 Pulse Rate 81 02/12/18 05:55 Respiratory Rate 18 02/12/18 05:55 Blood Pressure 118/64 02/12/18 05:55 O2 Sat by Pulse Oximetry (%) 94 L 02/11/18 21:50 Constitutional: Yes: Well Nourished, No Distress, Calm Eyes: Yes: Conjunctiva Clear, EOM Intact HENT: Yes: Atraumatic, Normocephalic, Other (NG in place, sumping well) Cardiovascular: Yes: Regular Rate and Rhythm Respiratory: Yes: Regular, CTA Bilaterally Gastrointestinal: Yes: Soft, Distention, Hypoactive Bowel Sounds. No: Tenderness Musculoskeletal: No: Joint Stiffness, Joint Swelling Extremities: Yes: Deformity (rheumatoid angulation of fingers). No: Cool, Cyanosis Integumentary: No: Jaundice, Rash Neurological: Yes: Alert, Oriented (but simple - only fair grasp of details) Psychiatric: Yes: Alert, Other (flat affect) Labs: CBC, BMP 02/12/18 06:00 02/12/18 06:00 INR, PTT INR 1.08 (0.83-1.09) 02/11/18 17:40 Problem List - Problems (1) Intestinal obstruction Assessment/Plan: high grade SBO of unclear cause in pt without surgical history admitted to medicine NPO/IVF/NGT to low cont suction would use nonnarcotic pain meds iv prn Discussed with patient at bedside and (by phone) risks, benefits and alternatives of exploratory laparotomy, possible bowel resection, possible ostomy (unlikely), including but not limited to bleeding, infection, injury to adjacent structures, intestinal leak or injury, intraabdominal abscess, incisional hernia, need for further procedures; alternatives include no surgery - risks of this include failure of nonoperative therapy, bowel ischemia, perforation, sepsis, . Patient and desire to proceed with operation - will take to OR for above. Informed consent to be signed or cosigned by when he arrives, as patient's capacity is such that I am not sure she can fully understand and consent to surgery alone. She also requests her cosign the consents. Code(s): K56.609 - UNSP INTESTNL OBST, UNSP TO PARTIAL VERSUS COMPLETE OBST Qualifiers: Intestinal obstruction type: other intestinal obstruction Intestinal obstruction extent: unspecified extent Qualified Code(s): K56.699 - Other intestinal obstruction unspecified as to partial versus complete obstruction (2) Generalized abdominal pain Code(s): R10.84 - GENERALIZED ABDOMINAL PAIN (3) Abdominal distention Code(s): R14.0 - ABDOMINAL DISTENSION (GASEOUS) (4) Dehydration Code(s): E86.0 - DEHYDRATION (5) Nausea and vomiting Code(s): R11.2 - NAUSEA WITH VOMITING, UNSPECIFIED Qualifiers: Vomiting type: unspecified Vomiting Intractability: non-intractable Qualified Code(s): R11.2 - Nausea with vomiting, unspecified (6) Mental retardation Code(s): F79 - UNSPECIFIED INTELLECTUAL DISABILITIES
--- NOTE | 2018-02-12 13:24 | PN ---
Teaching Attending Note Name of Resident: Darling Rodgers ATTENDING PHYSICIAN STATEMENT I saw and evaluated the patient. I reviewed the resident's note and discussed the case with the resident. I agree with the resident's findings and plan as documented. SUBJECTIVE:abdominal pain improved. no nausea or vomiting. has CANAS since she woke up says because she wants to eat. denies Cp, SOB, fever, chills, N/v/C/D no flatus had colonoscopy >10 years ago and she thinks it was normal OBJECTIVE: Last Vital Signs Temp Pulse Resp BP Pulse Ox 98.3 F 71 18 131/72 95 02/12/18 09:00 02/12/18 09:00 02/12/18 09:00 02/12/18 09:00 02/12/18 09:00 General NAD CV S1 S2 RRR no murmur/rub/gallop Lungs CTA B/L no wheezing/rales/rhonchi Abdomen soft +distended tympanic to percussion. no BS appreciated ASSESSMENT AND PLAN: 62yo F with no PMH presented with worsening abdominal pain x1 week with nausea and vomiting and found to have a high grade SBO 1. High grade SBO-unclear etiology. no previous abdominal surgeries or procedures. normal colonoscopy in the past. NPO, NGT to suction, IVF, will consult GI and surgery. if fails conservative management will need to consider surgery. spoke with patient who is agreeable if necessary and if her agrees. monitor UOP. may need carvajal placement 2. CANAS- likely due to hunger. tylenol prn pain. would not use opiates for CANAS pain relief. reassured that she is getting IVF 3. DVT ppx- Hep sq
--- NOTE | 2018-02-12 13:44 | EKG ---
Test Reason : Blood Pressure : / mmHG Vent. Rate : 083 BPM Atrial Rate : 083 BPM P-R Int : 164 ms QRS Dur : 084 ms QT Int : 370 ms P-R-T Axes : 024 054 056 degrees QTc Int : 434 ms NORMAL SINUS RHYTHM NORMAL ECG NO PREVIOUS ECGS AVAILABLE Confirmed by CASEY DAWSON MD ([id number]) on 02/12/2018 1:44:04 PM Referred By: Confirmed By:CASEY DAWSON MD
[2018-02-12] MEDS ORDERED: LIDOCAINE HCL/PF 2% SDV 5ML VIAL ONE (16:16)
[2018-02-12] MEDS ORDERED: ROCURONIUM BROMIDE 50 MG/5 ML VIAL ONE (16:16)
[2018-02-12] MEDS ORDERED: MIDAZOLAM HCL 2 MG/2 ML SINGLE DOSE VIAL ONE (16:16)
[2018-02-12] MEDS ORDERED: fentaNYL CITRATE 250 MCG/5 ML VIAL ONE (16:16)
[2018-02-12] MEDS ORDERED: CEFOXITIN SODIUM 1 GM IVPB ONE (16:28)
[2018-02-12] MEDS ORDERED: cefOXitin SODIUM 2 GM VIAL (RESTRICTED TO ID) IVPB ONE (16:45)
--- NOTE | 2018-02-12 17:17 | PN ---
Physical Exam: SUBJECTIVE: Patient seen and examined at bedside this morning. Patient on NGT. As per patient, her abdominal pain has resolved. She is complaining of headache and sore throat form the NG tube. OBJECTIVE: Vital Signs Period Temp Pulse Resp BP Sys/Celeste Pulse Ox Last 24 Hr 98.0 F-98.6 F 69-81 18-20 118-131/64-78 94-98 GENERAL: The patient is awake, alert, and fully oriented, in no acute distress. HEAD: Normal with no signs of trauma. EYES: PERRLA, EOMI, sclera anicteric, conjunctiva clear. ENT: Ears normal, nares patent, oropharynx clear without exudates, moist mucous membranes. NECK: Trachea midline, full range of motion, supple. LUNGS: Breath sounds equal, clear to auscultation bilaterally. HEART: Regular rate and rhythm, S1, S2 without murmur, rub or gallop. ABDOMEN: Soft, nontender, nondistended, normoactive bowel sounds. EXTREMITIES: 2+ pulses, warm, well-perfused, no edema. NEUROLOGICAL: Cranial nerves II through XII grossly intact. Normal speech, gait not observed. PSYCH: Normal mood, normal affect. SKIN: Warm, dry, normal turgor, no rashes or lesions noted Laboratory Results - last 24 hr 02/11/18 02/11/18 02/11/18 17:26 17:26 17:40 WBC 7.0 RBC 5.25 H Hgb 15.2 Hct 45.8 H MCV 87.4 MCH 29.0 MCHC 33.3 RDW 13.9 Plt Count 226 MPV 9.3 Absolute Neuts (auto) 5.1 Neutrophils % 72.1 Lymphocytes % 17.3 Monocytes % 9.8 Eosinophils % 0.3 Basophils % 0.5 Nucleated RBC % 0 PT with INR 12.20 INR 1.08 PTT (Actin FS) 32.0 Sodium Cancelled Potassium Cancelled Chloride Cancelled Carbon Dioxide Cancelled Anion Gap Cancelled BUN Cancelled Creatinine Cancelled Creat Clearance w eGFR Cancelled Random Glucose Cancelled Lactic Acid Calcium Cancelled Magnesium Total Bilirubin Cancelled AST Cancelled ALT Cancelled Alkaline Phosphatase Cancelled Total Protein Cancelled Albumin Cancelled Lipase Cancelled Urine Color Urine Appearance Urine pH Ur Specific [place] Urine Protein Urine Glucose (UA) Urine Ketones Urine Blood Urine Nitrite Urine Bilirubin Urine Urobilinogen Ur Leukocyte Esterase Urine WBC (Auto) Urine RBC (Auto) Ur Epithelial Cells Urine Mucus Blood Type Antibody Screen 02/11/18 02/11/18 02/11/18 18:41 18:41 18:50 WBC RBC Hgb Hct MCV MCH MCHC RDW Plt Count MPV Absolute Neuts (auto) Neutrophils % Lymphocytes % Monocytes % Eosinophils % Basophils % Nucleated RBC % PT with INR INR PTT (Actin FS) Sodium 142 Potassium 4.1 Chloride 106 Carbon Dioxide 25 Anion Gap 11 BUN 23 H Creatinine 0.6 Creat Clearance w eGFR > 60 Random Glucose 99 Lactic Acid Calcium 9.8 Magnesium 2.3 Total Bilirubin 1.0 AST 21 ALT 40 Alkaline Phosphatase 116 Total Protein 7.5 Albumin 4.2 Lipase 130 Urine Color Cindy Urine Appearance Slcloudy Urine pH 5.0 Ur Specific [place] 1.033 Urine Protein 1+ H Urine Glucose (UA) Negative Urine Ketones 1+ H Urine Blood Negative Urine Nitrite Negative Urine Bilirubin Negative Urine Urobilinogen Negative Ur Leukocyte Esterase Trace Urine WBC (Auto) 4 Urine RBC (Auto) 66 Ur Epithelial Cells Rare Urine Mucus Few Blood Type Antibody Screen 02/11/18 02/11/18 02/12/18 19:15 19:15 06:00 WBC 5.3 RBC 4.66 Hgb 13.6 Hct 40.9 MCV 87.8 MCH 29.1 MCHC 33.1 RDW 13.9 Plt Count 169 D MPV 9.1 Absolute Neuts (auto) 3.8 Neutrophils % 71.0 Lymphocytes % 17.2 Monocytes % 9.6 Eosinophils % 1.7 D Basophils % 0.5 Nucleated RBC % 0 PT with INR INR PTT (Actin FS) Sodium Potassium Chloride Carbon Dioxide Anion Gap BUN Creatinine Creat Clearance w eGFR Random Glucose Lactic Acid 0.9 Calcium Magnesium Total Bilirubin AST ALT Alkaline Phosphatase Total Protein Albumin Lipase Urine Color Urine Appearance Urine pH Ur Specific [place] Urine Protein Urine Glucose (UA) Urine Ketones Urine Blood Urine Nitrite Urine Bilirubin Urine Urobilinogen Ur Leukocyte Esterase Urine WBC (Auto) Urine RBC (Auto) Ur Epithelial Cells Urine Mucus Blood Type B NEGATIVE Antibody Screen Negative 02/12/18 06:00 WBC RBC Hgb Hct MCV MCH MCHC RDW Plt Count MPV Absolute Neuts (auto) Neutrophils % Lymphocytes % Monocytes % Eosinophils % Basophils % Nucleated RBC % PT with INR INR PTT (Actin FS) Sodium 142 Potassium 3.7 Chloride 109 H Carbon Dioxide 22 Anion Gap 11 BUN 15 Creatinine 0.3 L Creat Clearance w eGFR > 60 Random Glucose 103 Lactic Acid Calcium 8.6 Magnesium Total Bilirubin AST ALT Alkaline Phosphatase Total Protein Albumin Lipase Urine Color Urine Appearance Urine pH Ur Specific [place] Urine Protein Urine Glucose (UA) Urine Ketones Urine Blood Urine Nitrite Urine Bilirubin Urine Urobilinogen Ur Leukocyte Esterase Urine WBC (Auto) Urine RBC (Auto) Ur Epithelial Cells Urine Mucus Blood Type Antibody Screen Active Medications Generic Name Dose Route Start Last Admin Trade Name Freq PRN Reason Stop Dose Admin Acetaminophen 1,000 mg 02/12/18 11:17 02/12/18 11:49 Ofirmev Injection - IVPB 1,000 mg Q6H PRN Administration Pain Level 1 - 10 Heparin Sodium (Porcine) 5,000 unit 02/12/18 22:00 Heparin - SQ TID LEO Dextrose/Sodium Chloride 1,000 mls @ 100 mls/hr 02/11/18 19:15 02/12/18 10:53 D5-1/2ns - IV 100 mls/hr ASDIR LEO Administration Ondansetron HCl 4 mg 02/11/18 19:18 Zofran Injection IVPUSH Q6H PRN NAUSEA ASSESSMENT/PLAN: Patient is a 62 year old female with no past medical history presented with intermittent abdominal pain for 1 week accompanied by NBNB vomiting and watery diary of 1 day. #Small bowel obstruction: etiology unclear -patient has no history of any abdominal surgery. -No Family history of CA. Last colonoscopy 12 years ago. As per pt, it was normal. -Dr. Razo consulted. Recommendations appreciated. -On NPO, NGT with intermittent suction and IVF -Pt for surgery today with pt's and 's consent. -GI consulted. -Intake and urine output monitored #Headache -Patient was on NPO overnight. -NGT causing discomfort -Will give Tylenol 1000mg IV PRN for pain. #FEN -IV NS -electrolytes wnl, routine bmp monitoring -NPO for now #PPx -Heparin 5000units sq tid #Disposition -for surgery today Visit type - Emergency Visit Emergency Visit: Yes ED Registration Date: 02/11/18 Care time: The patient presented to the Emergency Department on the above date and was hospitalized for further evaluation of their emergent condition. - New Patient This patient is new to me today: Yes Date on this admission: 02/12/18 - Critical Care Critical Care patient: No
[2018-02-12] MEDS ORDERED: LABETALOL HCL 5 MG/1 ML (100MG/20 ML VIAL) ONE (17:35)
[2018-02-12] MEDS ORDERED: GLYCOPYRROLATE 0.2 MG/1 ML VIAL ONE (17:38)
[2018-02-12] MEDS ORDERED: DEXAMETHASONE SOD PHOSPHATE 4 MG/1 ML VIAL ONE (17:38)
[2018-02-12] MEDS ORDERED: DEXTROSE 50%-WATER 25 GM/50 ML DISP.SYRIN ONE (17:38)
[2018-02-12] MEDS ORDERED: NEOSTIGMINE METHYLSULFATE 0.5 MG/ML - 10 ML MDV ONE (17:38)
[2018-02-12] MEDS ORDERED: ONDANSETRON 4 MG/2 ML VIAL ONE (17:43)
--- NOTE | 2018-02-12 18:27 | OP ---
Operative Note - Note: Operative Date: 02/12/18 Pre-Operative Diagnosis: small bowel obstruction Operation: small bowel resection Findings: small bowel mass in distal SB, around proximal to mid-ileum - dilated proximally , collapsed distally; resected with ~2cm margins, primary anastomosis; no other masses identified in small bowel, + stool pieces throughout collapsed colon; NG palpated in stomach and secured Post-Operative Diagnosis: Other (distal small bowel mass with obstruction) Surgeon: Carlos Eduardo Razo Health Care Coordinator: Moustapha Yusuf Anesthesiologist/GRAVE DIGGER: Jay Wahl Anesthesia: General Specimens Removed: portion of distal small bowel and staple line Estimated Blood Loss (mls): 20 Drains & Tubes with Location: NG; Valdovinos used intraop, removed at case end Drains, Volume Out (mls): 500 (UOP) Fluid Volume Replaced (mls): 2,000 (crystalloid) Operative Report Dictated: Yes
[2018-02-12] MEDS ORDERED: LACTATED RINGERS SOLUTION 1,000 ML IV SCH ×2 (18:30→19:21)
[2018-02-12] MEDS ORDERED: HYDROmorphone *PCA* 10MG/50ML DISP.SYRIN PCA SCH (18:30)
[2018-02-12] MEDS ORDERED: HYDROmorphone *PCA* 10MG/50ML DISP.SYRIN PCA ONE (18:38)
[2018-02-12] MEDS ORDERED: D5-1/2NS+20 MEQ KCL - 20 MEQ/1,000 ML INFUS.BAG IV SCH (18:45)
[2018-02-12] MEDS ORDERED: ONDANSETRON 4 MG/2 ML VIAL IVPUSH PRN (19:21)
[2018-02-12] MEDS ORDERED: CEFOXITIN SODIUM 1 GM in DEXTROSE 5%-WATER - 100 ML IVPB SCH (21:00)
[2018-02-12] MEDS: CEFOXITIN SODIUM 1 GM in DEXTROSE 5%-WATER - 100 ML IVPB SCH (21:17)
[2018-02-12] MEDS: D5-1/2NS+20 MEQ KCL - 20 MEQ/1,000 ML INFUS.BAG IV SCH (21:17)
[2018-02-12] MEDS: HEPARIN NA (PORCINE) 5,000 UNITS/ML 1ML VIAL SQ SCH (21:17)
[2018-02-12] MEDS: HYDROmorphone *PCA* 10MG/50ML DISP.SYRIN PCA SCH (21:19)
[2018-02-12] MEDS ORDERED: HEPARIN NA (PORCINE) 5,000 UNITS/ML 1ML VIAL SQ SCH (22:00)
[2018-02-13] MEDS: CEFOXITIN SODIUM 1 GM in DEXTROSE 5%-WATER - 100 ML IVPB SCH ×3 (02:49→17:08)
[2018-02-13] MEDS: HEPARIN NA (PORCINE) 5,000 UNITS/ML 1ML VIAL SQ SCH ×3 (05:52→22:04)
[2018-02-13] MEDS: D5-1/2NS+20 MEQ KCL - 20 MEQ/1,000 ML INFUS.BAG IV SCH ×2 (06:22→19:03)
[2018-02-13 08:02] LABS: BASO % 0.2 % (0-2.0); EOS % 0.1 % (0-4.5); HEMATOCRIT 41.8 % (32.4-45.2); HEMOGLOBIN 13.7 GM/dL (10.7-15.3); LYMPH % 8.1 % (8-40); MCHC 32.8 g/dl (32.0-36.0); MEAN CELL VOLUME 88.4 fl (80-96); MEAN PLT VOLUME 9.6 fl (7.5-11.1); MONO % 8.6 % (3.8-10.2); PLATELET COUNT 169 K/MM3 (134-434); RBC 4.73 M/mm3 (3.60-5.2); RDW 13.7 % (11.6-15.6); WHITE BLOOD COUNT 6.6 K/mm3 (4.0-10.0)
[2018-02-13] MEDS ORDERED: PT OWN MED DRAWER 7, Y5N ONE ×3 (08:31→21:59)
[2018-02-13 08:44] LABS: CHLORIDE 103 mmol/L (98-107); POTASSIUM 4.6 mmol/L (3.5-5.1); SODIUM 137 mmol/L (136-145)
[2018-02-13 08:53] LABS: ALBUMIN 2.8 g/dl (3.4-5.0); ALK PHOS 84 U/L (45-117); ANION GAP 5 MMOL/L (8-16); BILIRUBIN,TOTAL 0.9 mg/dL (0.2-1.0); BLOOD UREA NITROGEN 11 mg/dL (7-18); CALCIUM 7.9 mg/dL (8.5-10.1); CO2 29 mmol/L (21-32); CREATININE 0.6 mg/dL (0.55-1.02); GLUCOSE,RANDOM 130 mg/dL (74-106); SGOT/AST 21 U/L (15-37); SGPT/ALT 36 U/L (12-78); TOT PROT 5.5 g/dl (6.4-8.2)
--- NOTE | 2018-02-13 10:59 | PN ---
Progress Note, Physician Chief Complaint: day 1 s/p exlap, SB resection on [place] - Current Medication List Current Medications: Active Medications Acetaminophen (Ofirmev Injection -) 1,000 mg IVPB Q6H PRN PRN Reason: Pain Level 1 - 10 BREAKTHROUGH Heparin Sodium (Porcine) (Heparin -) 5,000 unit SQ TID LEO Last Admin: 02/13/18 05:52 Dose: 5,000 unit Hydromorphone HCl (Dilaudid Human Resources Professional -) 10 mg PEOPLESOFT PEOPLESOFT LEO; Protocol Stop: 02/19/18 18:18 Last Admin: 02/12/18 21:19 Dose: 10 mg Cefoxitin Sodium 1 gm/ (Dextrose) 100 mls @ 200 mls/hr IVPB Q6H-IV LEO; Protocol Stop: 02/13/18 20:59 Last Admin: 02/13/18 09:27 Dose: 200 mls/hr Potassium Chloride/Dextrose/Sod Cl (D5-1/2ns+20 Meq Kcl -) 20 meq in 1,000 mls @ 100 mls/hr IV ASDIR LEO Last Admin: 02/13/18 06:22 Dose: 100 mls/hr Ondansetron HCl (Zofran Injection) 4 mg IVPUSH Q6H PRN PRN Reason: NAUSEA - Objective Vital Signs: Vital Signs Temperature 97.8 F 02/13/18 05:45 Pulse Rate 94 H 02/13/18 05:45 Respiratory Rate 20 02/13/18 09:00 Blood Pressure 129/70 02/13/18 05:45 O2 Sat by Pulse Oximetry (%) 98 02/13/18 09:00 Labs: CBC, BMP 02/13/18 06:10 02/13/18 06:10 INR, PTT INR 1.08 (0.83-1.09) 02/11/18 17:40 Assessment/Plan Doing well s/p GA for ex-lap. Pain well controlled on PE[place]OFT (pt was sleeping when I arrived) - no anesthetic issues/complications
--- NOTE | 2018-02-13 11:42 | PN ---
Teaching Attending Note Name of Resident: Darling Rodgers ATTENDING PHYSICIAN STATEMENT I saw and evaluated the patient. I reviewed the resident's note and discussed the case with the resident. I agree with the resident's findings and plan as documented. SUBJECTIVE:c/o abdominal pain. has relief with pain medications. denies CP, SOB , fever, chills, no flatus or BM OBJECTIVE: Last Vital Signs Temp Pulse Resp BP Pulse Ox 97.8 F 94 H 20 129/70 98 02/13/18 05:45 02/13/18 05:45 02/13/18 09:00 02/13/18 05:45 02/13/18 09:00 Intake & Output 02/10/18 02/11/18 02/12/18 02/13/18 23:59 23:59 23:59 23:59 Intake Total 3750 1100 Output Total 1120 350 Balance 2630 750 Weight 145 lb 2 oz General NAD CV S1 S2 RRR no murmur/rub/gallop Abdomen soft +distended surgical incision midline. C/d/I. no bowel sounds. ASSESSMENT AND PLAN: 62yo F with no PMH presented with worsening abdominal pain x1 week with nausea and vomiting and found to have a high grade SBO 1. High grade SBO-s/p ex-lap with anastomosis. 02/12. distal SB mass identified in the mid-ileum. cont NGT, NPO, IVF, serial abdominal exams. GAMBLING SUPERVISOR pump for pain. will await for bowel function to return. estelle-operative Abx. surgery and GI on board 2. CANAS- likely due to hunger. now resolved 3. DVT ppx- Hep sq
--- NOTE | 2018-02-13 12:37 | PN ---
Progress Note (short form) - Note Progress Note: The pt was found to have SBO requiring sx intervention. Care as per SX. Recall GI as needed
--- NOTE | 2018-02-13 12:53 | PN ---
Progress Note, Physician History of Present Illness: Pt s/p SB resection for mass causing obstruction. Has NGT and MOBILE SERVICE RV TECHNICIAN, c/o pain in abdomen and sore throat. Using MOBILE SERVICE RV TECHNICIAN. Has not yet been out of bed but had visitors earlier. No flatus. No fever or nausea. - Current Medication List Current Medications: Active Medications Acetaminophen (Ofirmev Injection -) 1,000 mg IVPB Q6H PRN PRN Reason: Pain Level 1 - 10 BREAKTHROUGH Heparin Sodium (Porcine) (Heparin -) 5,000 unit SQ TID LEO Last Admin: 02/13/18 05:52 Dose: 5,000 unit Hydromorphone HCl (Dilaudid Commercial Correspondent -) 10 mg MOBILE SERVICE RV TECHNICIAN MOBILE SERVICE RV TECHNICIAN LEO; Protocol Stop: 02/19/18 18:18 Last Admin: 02/12/18 21:19 Dose: 10 mg Cefoxitin Sodium 1 gm/ (Dextrose) 100 mls @ 200 mls/hr IVPB Q6H-IV LEO; Protocol Stop: 02/13/18 20:59 Last Admin: 02/13/18 09:27 Dose: 200 mls/hr Potassium Chloride/Dextrose/Sod Cl (D5-1/2ns+20 Meq Kcl -) 20 meq in 1,000 mls @ 100 mls/hr IV ASDIR LEO Last Admin: 02/13/18 06:22 Dose: 100 mls/hr Ondansetron HCl (Zofran Injection) 4 mg IVPUSH Q6H PRN PRN Reason: NAUSEA - Objective Vital Signs: Vital Signs Temperature 97.8 F 02/13/18 05:45 Pulse Rate 94 H 02/13/18 05:45 Respiratory Rate 20 02/13/18 09:00 Blood Pressure 129/70 02/13/18 05:45 O2 Sat by Pulse Oximetry (%) 98 02/13/18 09:00 Vital Signs Period Temp Pulse Resp BP Sys/Celeste Pulse Ox Last 24 Hr 14 F-98.2 F 54-94 11-20 122-165/64-101 95-100 Constitutional: Yes: Well Nourished, No Distress, Calm Eyes: Yes: Conjunctiva Clear, EOM Intact HENT: Yes: Atraumatic, Normocephalic, Other (NGT in place with nichole fluid output, small amt in canister, sumps ok with a little air) Cardiovascular: Yes: Tachycardia (mild). No: Murmur Respiratory: Yes: Regular, CTA Bilaterally Gastrointestinal: Yes: Soft, Distention, Hypoactive Bowel Sounds (scant RUQ only ), Tenderness (diffuse and incisional, no R/G) Genitourinary: Yes: Incontinence (some- has diaper on). No: Valdovinos Present Extremities: Yes: Deformity (rheumatoid-appearing hand joints). No: Cool, Cyanosis Integumentary: Yes: Incision (midline dressed). No: Jaundice, Rash Wound/Incision: Yes: Dressing Dry and Intact. 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 Assessment/Plan: POD1 s/p small bowel resection for mass causing obstruction pain managed with MOBILE SERVICE RV TECHNICIAN - encouraged pt to use liberally IV tylenol available if needed for breakthrough pt wants to get up into chair - encouraged OOB/ambulation to bathroom prn will get IS for pulm toilet continue NPO/NGT/IVF - ok to reduce fluids to 83/hr await bowel function trend labs/lytes while NPO complete periop antibiotics later today DVT prophylaxis await pathology results Code(s): D37.2 - NEOPLASM OF UNCERTAIN BEHAVIOR OF SMALL INTESTINE (2) Intestinal obstruction Assessment/Plan: high-grade, near complete obstruction from mass, now resected await resumption of bowel function Code(s): K56.609 - UNSP INTESTNL OBST, UNSP TO PARTIAL VERSUS COMPLETE OBST Qualifiers: Intestinal obstruction type: other intestinal obstruction Intestinal obstruction extent: unspecified extent Qualified Code(s): K56.699 - Other intestinal obstruction unspecified as to partial versus complete obstruction (3) Generalized abdominal pain Code(s): R10.84 - GENERALIZED ABDOMINAL PAIN (4) Abdominal distention Code(s): R14.0 - ABDOMINAL DISTENSION (GASEOUS) (5) Dehydration Assessment/Plan: resolved Code(s): E86.0 - DEHYDRATION (6) Nausea and vomiting Assessment/Plan: resolved Code(s): R11.2 - NAUSEA WITH VOMITING, UNSPECIFIED Qualifiers: Vomiting type: unspecified Vomiting Intractability: non-intractable Qualified Code(s): R11.2 - Nausea with vomiting, unspecified (7) Mental retardation Code(s): F79 - UNSPECIFIED INTELLECTUAL DISABILITIES
--- NOTE | 2018-02-13 15:04 | PN ---
Physical Exam: SUBJECTIVE: Patient seen and examined at bedside this morning. No acute events overnight. Patient is post-op day 1. OBJECTIVE: Vital Signs Period Temp Pulse Resp BP Sys/Celeste Pulse Ox Last 24 Hr 14 F-98.2 F 54-94 11-20 122-165/64-101 95-100 GENERAL: The patient is awake, alert, and fully oriented, in no acute distress. HEAD: Normal with no signs of trauma. EYES: PERRLA, EOMI, sclera anicteric, conjunctiva clear. NECK: Trachea midline, full range of motion, supple. LUNGS: Breath sounds equal, clear to auscultation bilaterally. HEART: Regular rate and rhythm, S1, S2 without murmur, rub or gallop. ABDOMEN: Soft, nondistended, normoactive bowel sounds. EXTREMITIES: 2+ pulses, warm, well-perfused, no edema. SKIN: Warm, dry, normal turgor, no rashes or lesions noted Laboratory Results - last 24 hr 02/13/18 02/13/18 06:10 06:10 WBC 6.6 RBC 4.73 Hgb 13.7 Hct 41.8 MCV 88.4 MCH 29.0 MCHC 32.8 RDW 13.7 Plt Count 169 MPV 9.6 Absolute Neuts (auto) 5.5 Neutrophils % 83.0 H Lymphocytes % 8.1 D Monocytes % 8.6 Eosinophils % 0.1 D Basophils % 0.2 Nucleated RBC % 0 Sodium 137 Potassium 4.6 Chloride 103 Carbon Dioxide 29 Anion Gap 5 L BUN 11 Creatinine 0.6 Creat Clearance w eGFR > 60 Random Glucose 130 H Calcium 7.9 L Total Bilirubin 0.9 AST 21 ALT 36 Alkaline Phosphatase 84 D Total Protein 5.5 L D Albumin 2.8 L Active Medications Generic Name Dose Route Start Last Admin Trade Name Freq PRN Reason Stop Dose Admin Acetaminophen 1,000 mg 02/12/18 19:21 Ofirmev Injection - IVPB Q6H PRN Pain Level 1 - 10 BREAKTHROUGH Heparin Sodium (Porcine) 5,000 unit 02/12/18 22:00 02/13/18 14:48 Heparin - SQ 5,000 unit TID LEO Administration Hydromorphone HCl 10 mg 02/12/18 19:21 02/12/18 21:19 Dilaudid Support Specialist - SUPERVISOR BAKING 02/19/18 18:18 10 mg SUPERVISOR BAKING LEO Administration Protocol Cefoxitin Sodium 1 gm/ 100 mls @ 200 mls/hr 02/12/18 21:00 02/13/18 09:27 Dextrose IVPB 02/13/18 20:59 200 mls/hr Q6H-IV LEO Administration Protocol Potassium Chloride/Dextrose/Sod Cl 20 meq in 1,000 mls @ 100 mls/hr 02/12/18 19:21 02/13/18 06:22 D5-1/2ns+20 Meq Kcl - IV 100 mls/hr ASDIR LEO Administration Ondansetron HCl 4 mg 02/12/18 19:21 Zofran Injection IVPUSH Q6H PRN NAUSEA ASSESSMENT/PLAN: Patient is a 62 year old female with no past medical history presented with intermittent abdominal pain for 1 week accompanied by NBNB vomiting and watery diary of 1 day. #Small bowel obstruction: POD1 s/p small bowel resection -Dr. Razo consulted. Recommendations appreciated. -Post-op findings: Small bowel mass in distal SB, around proximal to mid-ileum; dilated proximally, collapsed distally; resected 2cm -patient has no history of any abdominal surgery. -No Family history of CA. Last colonoscopy 12 years ago. As per pt, it was normal. -Keep NPO, NGT with intermittent suction and IVF -Pain managed with SUPERVISOR BAKING. -IV Tylenol available if needed for breakthrough. -Encouraged OOB/ambulation to bathroom PRN -Await bowel function. -Complete perioperative antibiotics 24 h -CBC, CMP monitoring while NPO. -Dr. Fernandez consulted. Recommendations appreciated. -Intake and urine output monitored #Headache, resolved -Patient on NPO. -NGT causing discomfort -patient on SUPERVISOR BAKING, Tylenol #FEN -IV D5-1/2NS at 83ml/hr -electrolytes wnl, routine bmp monitoring -NPO for now #PPx -Heparin 5000units sq tid #Disposition -POD 1 Visit type - Emergency Visit Emergency Visit: Yes ED Registration Date: 02/11/18 Care time: The patient presented to the Emergency Department on the above date and was hospitalized for further evaluation of their emergent condition. - New Patient This patient is new to me today: Yes Date on this admission: 02/13/18 - Critical Care Critical Care patient: No - Discharge Referral Referred to [facility] Med P.C.: No
[2018-02-13] MEDS: HYDROmorphone *PCA* 10MG/50ML DISP.SYRIN PCA SCH (17:09)
[2018-02-14] MEDS: ACETAMINOPHEN 1000 MG/100 ML VIAL (NON FORMULARY) IVPB PRN (01:55)
[2018-02-14] MEDS: HEPARIN NA (PORCINE) 5,000 UNITS/ML 1ML VIAL SQ SCH ×3 (06:26→21:57)
[2018-02-14 06:49] LABS: HEMATOCRIT 39.8 % (32.4-45.2); HEMOGLOBIN 13.3 GM/dL (10.7-15.3); MCH 29.3 pg (25.7-33.7); MCHC 33.3 g/dl (32.0-36.0); MEAN CELL VOLUME 87.8 fl (80-96); MEAN PLT VOLUME 9.3 fl (7.5-11.1); PLATELET COUNT 155 K/MM3 (134-434); RBC 4.53 M/mm3 (3.60-5.2); RDW 13.8 % (11.6-15.6); WHITE BLOOD COUNT 6.6 K/mm3 (4.0-10.0)
[2018-02-14 07:34] LABS: CHLORIDE 101 mmol/L (98-107); POTASSIUM 4.1 mmol/L (3.5-5.1); SODIUM 137 mmol/L (136-145)
[2018-02-14 07:43] LABS: ALBUMIN 2.6 g/dl (3.4-5.0); ALK PHOS 88 U/L (45-117); ANION GAP 7 MMOL/L (8-16); BILIRUBIN,TOTAL 0.8 mg/dL (0.2-1.0); BLOOD UREA NITROGEN 8 mg/dL (7-18); CALCIUM 8.2 mg/dL (8.5-10.1); CO2 29 mmol/L (21-32); CREATININE 0.5 mg/dL (0.55-1.02); GLUCOSE,RANDOM 111 mg/dL (74-106); MAGNESIUM 2.2 mg/dL (1.8-2.4); PHOSPHOROUS 3.1 mg/dL (2.5-4.9); SGOT/AST 17 U/L (15-37); SGPT/ALT 28 U/L (12-78); TOT PROT 5.6 g/dl (6.4-8.2)
--- NOTE | 2018-02-14 10:45 | PN ---
Progress Note (short form) - Note Progress Note: c/o throat discomfort. denies Cp, SOB, fever, chills, N/V/C/D, no BM or flatus. Current Medications Generic Name Dose Route Start Last Admin Trade Name Cheri PRN Reason Stop Dose Admin Acetaminophen 1,000 mg 02/12/18 19:21 02/14/18 01:55 Ofirmev Injection - IVPB 1,000 mg Q6H PRN Administration Pain Level 1 - 10 BREAKTHROUGH Heparin Sodium (Porcine) 5,000 unit 02/12/18 22:00 02/14/18 06:26 Heparin - SQ 5,000 unit TID LEO Administration Hydromorphone HCl 10 mg 02/12/18 19:21 02/13/18 17:09 Dilaudid Customer Service Agent - ASP DEVELOPER 02/19/18 18:18 10 mg ASP DEVELOPER LEO Administration Protocol Potassium Chloride/Dextrose/Sod Cl 20 meq in 1,000 mls @ 83 mls/hr 02/13/18 16 :54 02/13/18 19:03 D5-1/2ns+20 Meq Kcl - IV 83 mls/hr ASDIR LEO Administration Ondansetron HCl 4 mg 02/12/18 19:21 Zofran Injection IVPUSH Q6H PRN NAUSEA Last Vital Signs Temp Pulse Resp BP Pulse Ox 98.9 F 95 H 20 145/83 98 02/14/18 09:57 02/14/18 09:57 02/14/18 09:57 02/14/18 09:57 02/13/18 22:00 General NAD CV S1 S2 RRR no murmur/rub/gallop Abdomen soft +distended surgical incision midline. C/d/I. no bowel sounds. CBCD WBC 6.6 K/mm3 (4.0-10.0) 02/14/18 06:00 RBC 4.53 M/mm3 (3.60-5.2) 02/14/18 06:00 Hgb 13.3 GM/dL (10.7-15.3) 02/14/18 06:00 Hct 39.8 % (32.4-45.2) 02/14/18 06:00 MCV 87.8 fl (80-96) 02/14/18 06:00 MCHC 33.3 g/dl (32.0-36.0) 02/14/18 06:00 RDW 13.8 % (11.6-15.6) 02/14/18 06:00 Plt Count 155 K/MM3 (134-434) 02/14/18 06:00 MPV 9.3 fl (7.5-11.1) 02/14/18 06:00 CMP Sodium 137 mmol/L (136-145) 02/14/18 06:00 Potassium 4.1 mmol/L (3.5-5.1) 02/14/18 06:00 Chloride 101 mmol/L (98-107) 02/14/18 06:00 Carbon Dioxide 29 mmol/L (21-32) 02/14/18 06:00 Anion Gap 7 MMOL/L (8-16) L 02/14/18 06:00 BUN 8 mg/dL (7-18) 02/14/18 06:00 Creatinine 0.5 mg/dL (0.55-1.02) L 02/14/18 06:00 Creat Clearance w eGFR > 60 (>60) 02/14/18 06:00 Calcium 8.2 mg/dL (8.5-10.1) L 02/14/18 06:00 Total Bilirubin 0.8 mg/dL (0.2-1.0) 02/14/18 06:00 AST 17 U/L (15-37) 02/14/18 06:00 ALT 28 U/L (12-78) 02/14/18 06:00 Alkaline Phosphatase 88 U/L (45-117) 02/14/18 06:00 Total Protein 5.6 g/dl (6.4-8.2) L 02/14/18 06:00 Albumin 2.6 g/dl (3.4-5.0) L 02/14/18 06:00 ASSESSMENT AND PLAN: 62yo F with no PMH presented with worsening abdominal pain x1 week with nausea and vomiting and found to have a high grade SBO 1. High grade SBO-s/p ex-lap with anastomosis. 02/12. distal SB mass identified in the mid-ileum. cont NGT, NPO, IVF, serial abdominal exams. ASP DEVELOPER pump for pain. will await for bowel function to return. estelle-operative Abx. surgery and GI on board 2. Fever- Tm 100.7. likely due to surgery. will check cx if spike Tm >101. will hold abx at this time 3. CANAS- likely due to hunger. now resolved 4. DVT ppx- Hep sq Visit type - Emergency Visit Emergency Visit: Yes ED Registration Date: 02/11/18 Care time: The patient presented to the Emergency Department on the above date and was hospitalized for further evaluation of their emergent condition. - New Patient This patient is new to me today: No - Critical Care Critical Care patient: No - Discharge Referral Referred to [facility] Med P.C.: No
--- NOTE | 2018-02-14 13:23 | PN ---
Progress Note, Physician Chief Complaint: abdominal pain History of Present Illness: 62 yo female no significant past medical history. Who presents to the ED with sharp intermittent abdominal pain x 1 week. Hemodynamically stable during the post-operative period. no complaints - Current Medication List Current Medications: Active Medications Acetaminophen (Ofirmev Injection -) 1,000 mg IVPB Q6H PRN PRN Reason: Pain Level 1 - 10 BREAKTHROUGH Last Admin: 02/14/18 01:55 Dose: 1,000 mg Heparin Sodium (Porcine) (Heparin -) 5,000 unit SQ TID LEO Last Admin: 02/14/18 06:26 Dose: 5,000 unit Hydromorphone HCl (Dilaudid Tuckpointer -) 10 mg OBSTETRICIAN AND GYNAECOLOGIST OBSTETRICIAN AND GYNAECOLOGIST LEO; Protocol Stop: 02/19/18 18:18 Last Admin: 02/13/18 17:09 Dose: 10 mg Potassium Chloride/Dextrose/Sod Cl (D5-1/2ns+20 Meq Kcl -) 20 meq in 1,000 mls @ 83 mls/hr IV ASDIR LEO Last Admin: 02/13/18 19:03 Dose: 83 mls/hr Ondansetron HCl (Zofran Injection) 4 mg IVPUSH Q6H PRN PRN Reason: NAUSEA - Objective Vital Signs: Vital Signs Temperature 98.9 F 02/14/18 09:57 Pulse Rate 95 H 02/14/18 09:57 Respiratory Rate 20 02/14/18 09:57 Blood Pressure 145/83 02/14/18 09:57 O2 Sat by Pulse Oximetry (%) 98 02/13/18 22:00 Vital Signs Period Temp Pulse Resp BP Sys/Celeste Pulse Ox Last 24 Hr 98.4 F-100.7 F 86-106 20-20 115-153/71-83 98-98 Constitutional: Yes: Well Nourished, No Distress, Calm Eyes: Yes: Conjunctiva Clear, EOM Intact HENT: Yes: Atraumatic, Normocephalic, Other (NGT in place and functioning) Neck: Yes: Supple, Trachea Midline Cardiovascular: Yes: Regular Rate and Rhythm, S1, S2 Respiratory: Yes: Regular, CTA Bilaterally Gastrointestinal: Yes: Soft, Hypoactive Bowel Sounds, Tenderness (inisional) ...Rectal Exam: Yes: Deferred Edema: No Peripheral Pulses WNL: Yes Peripheral Pulses: Left Radial: 2+, Right Radial: 2+, Left Doralis Pedis: 2+, Right Dorsalis Pedis: 2+ Wound/Incision: Yes: Clean/Dry, Well Approximated, Yakov Intact, Open to air, Dressing Removed Neurological: Yes: Alert, Oriented Psychiatric: Yes: Alert, Oriented Labs: CBC, BMP 02/14/18 06:00 02/14/18 06:00 INR, PTT INR 1.08 (0.83-1.09) 02/11/18 17:40 Problem List - Problems (1) Generalized abdominal pain Assessment/Plan: POD#2 s/p Exp Lap and small bowel segmental ressection w/ primary anastomosis, no reported BM or flatus, no andominal distension noted, NGT 400ml in 24hours continue NGT to LCWS OOB and ambulate adequate analgesia continue OBSTETRICIAN AND GYNAECOLOGIST Local wound care will follow Code(s): R10.84 - GENERALIZED ABDOMINAL PAIN (2) Intestinal obstruction Code(s): K56.609 - UNSP INTESTNL OBST, UNSP TO PARTIAL VERSUS COMPLETE OBST Qualifiers: Intestinal obstruction type: other intestinal obstruction Intestinal obstruction extent: unspecified extent Qualified Code(s): K56.699 - Other intestinal obstruction unspecified as to partial versus complete obstruction (3) Mental retardation Code(s): F79 - UNSPECIFIED INTELLECTUAL DISABILITIES (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
[2018-02-14] MEDS: D5-1/2NS+20 MEQ KCL - 20 MEQ/1,000 ML INFUS.BAG IV SCH ×2 (15:49→17:56)
--- NOTE | 2018-02-14 17:30 | PN ---
Progress Note (short form) - Note Progress Note: Anesthesia FURNACE MAINTENANCE round, POD#2, S/P small bowel resection. Pain well controlled on FURNACE MAINTENANCE. At rest pain score 2-3/10. Have been OOB during the day.VSS. Continue FURNACE MAINTENANCE. Considering to convert to PO medications when PO toleratated. Follow up tomorrow.
[2018-02-15] MEDS: D5-1/2NS+20 MEQ KCL - 20 MEQ/1,000 ML INFUS.BAG IV SCH ×2 (03:37→17:38)
[2018-02-15] MEDS: HEPARIN NA (PORCINE) 5,000 UNITS/ML 1ML VIAL SQ SCH ×3 (06:29→21:05)
--- NOTE | 2018-02-15 09:05 | PN ---
Progress Note (short form) - Note Progress Note: Patient stable and c/o pain score of 5-6/10 on dilaudid TUBE WINDER HAND.Not using TUBE WINDER HAND properly so advised her to push the magistrate more often.Patient still has NGT in.Will continue magistrate today and will f/u tomorrow.
--- NOTE | 2018-02-15 09:15 | PN ---
Teaching Attending Note Name of Resident: Prince Cardenas ATTENDING PHYSICIAN STATEMENT I saw and evaluated the patient. I reviewed the resident's note and discussed the case with the resident. I agree with the resident's findings and plan as documented. SUBJECTIVE:c/o intermittent abdominal pain controlled with pain medication. denies Cp, SOB, fever, chills, N/V/C/D. no flatus OBJECTIVE: Last Vital Signs Temp Pulse Resp BP Pulse Ox 98.8 F 110 H 20 129/81 97 02/15/18 05:50 02/15/18 05:50 02/15/18 05:50 02/15/18 05:50 02/14/18 21:00 Intake & Output 02/12/18 02/13/18 02/14/18 02/15/18 23:59 23:59 23:59 23:59 Intake Total 3750 1100 1096 996 Output Total 1120 350 400 800 Balance 2630 750 696 196 Weight 145 lb General NAD Abdomen soft NT/ND hypoactive BS ASSESSMENT AND PLAN: 62yo F with no PMH presented with worsening abdominal pain x1 week with nausea and vomiting and found to have a high grade SBO 1. High grade SBO-s/p ex-lap with anastomosis. 02/12. distal SB mass identified in the mid-ileum. decreased output from NGT. will cont NGT to light suction, NPO , IVF, serial abdominal exams. BACTERIOLOGIST DAIRY pump for pain (unclear if patient understands how to use this pump. multiple re-inforcements) will consider switching over to morphine IVP prn tomorrow if not utilizing. OOB to chair, incentive spirometer. will await for bowel function to return. estelle-operative Abx. surgery and GI on board 2. Fever-afebrile 24H. Likely due to surgery. will check cx if spike Tm >101. will hold abx at this time 3. CANAS- likely due to hunger. now resolved 4. mental retardation 5. DVT ppx- Hep sq
--- NOTE | 2018-02-15 11:02 | PN ---
Progress Note, Physician Chief Complaint: abdominal pain History of Present Illness: 62 yo female no significant past medical history. Who presents to the ED with sharp intermittent abdominal pain x 1 week. Hemodynamically stable during the post-operative period. no complaints - Current Medication List Current Medications: Active Medications Acetaminophen (Ofirmev Injection -) 1,000 mg IVPB Q6H PRN PRN Reason: Pain Level 1 - 10 BREAKTHROUGH Last Admin: 02/14/18 01:55 Dose: 1,000 mg Heparin Sodium (Porcine) (Heparin -) 5,000 unit SQ TID LEO Last Admin: 02/15/18 06:29 Dose: 5,000 unit Hydromorphone HCl (Dilaudid Darklight Inspector -) 10 mg MANAGER OPERATIONAL MANAGER OPERATIONAL LEO; Protocol Stop: 02/19/18 18:18 Last Admin: 02/13/18 17:09 Dose: 10 mg Potassium Chloride/Dextrose/Sod Cl (D5-1/2ns+20 Meq Kcl -) 20 meq in 1,000 mls @ 83 mls/hr IV ASDIR LEO Last Admin: 02/15/18 03:37 Dose: 83 mls/hr Ondansetron HCl (Zofran Injection) 4 mg IVPUSH Q6H PRN PRN Reason: NAUSEA - Objective Vital Signs: Vital Signs Temperature 98.8 F 02/15/18 05:50 Pulse Rate 110 H 02/15/18 05:50 Respiratory Rate 20 02/15/18 05:50 Blood Pressure 129/81 02/15/18 05:50 O2 Sat by Pulse Oximetry (%) 97 02/14/18 21:00 Vital Signs Period Temp Pulse Resp BP Sys/Celeste Pulse Ox Last 24 Hr 98.5 F-99.1 F 98-110 18-20 129-134/77-90 97 Constitutional: Yes: Well Nourished, No Distress, Calm Eyes: Yes: Conjunctiva Clear, EOM Intact HENT: Yes: Atraumatic, Normocephalic, Other (NGT present and fucntioning) Neck: Yes: Supple, Trachea Midline Cardiovascular: Yes: Regular Rate and Rhythm, S1, S2 Respiratory: Yes: Regular, CTA Bilaterally Gastrointestinal: Yes: Normal Bowel Sounds, Soft, Tenderness (incsional). No: Abdomen, Obese ...Rectal Exam: Yes: Deferred Genitourinary: No: CVA Tenderness - Left, CVA Tenderness - Right Extremities: No: Cool, Cyanosis Edema: No Peripheral Pulses WNL: Yes Peripheral Pulses: Left Radial: 2+, Right Radial: 2+, Left Doralis Pedis: 2+, Right Dorsalis Pedis: 2+ Integumentary: No: Bruising, Erythema, Jaundice Wound/Incision: Yes: Clean/Dry, Well Approximated, [place] Intact, Open to air Neurological: Yes: Alert, Oriented Psychiatric: Yes: Alert, Oriented Labs: CBC, BMP 02/14/18 06:00 02/14/18 06:00 INR, PTT INR 1.08 (0.83-1.09) 02/11/18 17:40 Problem List - Problems (1) Generalized abdominal pain Assessment/Plan: POD#3 s/p Exp Lap and small bowel segmental ressection w/ primary anastomosis, no reported BM or flatus, no abdominal distension, NGT only 100ml last shift. 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
--- NOTE | 2018-02-15 12:39 | PN ---
Physical Exam: SUBJECTIVE: Patient seen and examined at bedside. Pt complains only of mild sore throat. No acute events. No other complaints. OBJECTIVE: Vital Signs Period Temp Pulse Resp BP Sys/Celeste Pulse Ox Last 24 Hr 98.5 F-99.1 F 98-110 18-20 129-134/77-90 97 GENERAL: The patient is awake, alert, and fully oriented, in no acute distress. HEAD: Normal with no signs of trauma. NGT in place and draining EYES: extraocular movements intact, sclera anicteric, conjunctiva clear. No ptosis. ENT: oropharynx clear without exudates, moist mucous membranes. NECK: Trachea midline, full range of motion, supple. LUNGS: Breath sounds equal, clear to auscultation bilaterally, no wheezes, no crackles, no accessory muscle use. HEART: Regular rate and rhythm, S1, S2 without murmur, rub or gallop. ABDOMEN: Soft, Tender at surgical site, praveena in place, wound clean and dry, nondistended, hypoactive bs, no guarding, no rebound, no hepatosplenomegaly, no masses. EXTREMITIES: 2+ pulses, warm, well-perfused, no edema. Active Medications Active Medications Acetaminophen (Ofirmev Injection -) 1,000 mg IVPB Q6H PRN PRN Reason: Pain Level 1 - 10 BREAKTHROUGH Last Admin: 02/14/18 01:55 Dose: 1,000 mg Heparin Sodium (Porcine) (Heparin -) 5,000 unit SQ TID [facility] Last Admin: 02/15/18 06:29 Dose: 5,000 unit Hydromorphone HCl (Dilaudid Steel Tester -) 10 mg SOFTWARE CONFIGURATION ENGINEER SOFTWARE CONFIGURATION ENGINEER [facility]; Protocol Stop: 02/19/18 18:18 Last Admin: 02/13/18 17:09 Dose: 10 mg Potassium Chloride/Dextrose/Sod Cl (D5-1/2ns+20 Meq Kcl -) 20 meq in 1,000 mls @ 83 mls/hr IV ASDIR LEO Last Admin: 02/15/18 03:37 Dose: 83 mls/hr Ondansetron HCl (Zofran Injection) 4 mg IVPUSH Q6H PRN PRN Reason: NAUSEA ASSESSMENT/PLAN: Patient is a 62 year old female with no past medical history presented with intermittent abdominal pain for 1 week accompanied by NBNB vomiting and watery diary of 1 day. #Small bowel obstruction: s/p small bowel resection on 12 Feb 2018 -Dr. Razo consulted. Recommendations appreciated. -Post-op findings: Small bowel mass in distal SB, around proximal to mid-ileum; dilated proximally, collapsed distally; resected 2cm -patient has no history of any abdominal surgery. -No Family history of CA. Last colonoscopy 12 years ago. As per pt, it was normal. -Keep NPO, NGT with intermittent suction and IVF -Pain managed with SOFTWARE CONFIGURATION ENGINEER. -IV Tylenol available if needed for breakthrough. -Encouraged OOB/ambulation to bathroom PRN -Await bowel function. -Completed perioperative antibiotics 24 h -CBC, CMP monitoring while NPO. -Dr. Fernandez consulted. Recommendations appreciated. -Intake and urine output monitored #Headache, resolved -Patient on NPO. -NGT causing discomfort -patient on SOFTWARE CONFIGURATION ENGINEER, Tylenol #FEN -IV D5-1/2NS + KCl at 83ml/hr -electrolytes wnl, routine bmp monitoring -NPO for now #PPx -Heparin 5000units sq tid #Disposition -s/p ex lap on 02/12/2018 Prince Cardenas MD PGY-2 IM Visit type - Emergency Visit Emergency Visit: No - New Patient This patient is new to me today: No - Critical Care Critical Care patient: No - Discharge Referral Referred to [facility] Med P.C.: No
[2018-02-15] MEDS: ACETAMINOPHEN 1000 MG/100 ML VIAL (NON FORMULARY) IVPB PRN (17:38)
[2018-02-15] MEDS: HYDROmorphone *PCA* 10MG/50ML DISP.SYRIN PCA SCH (19:30)
[2018-02-16] MEDS: D5-1/2NS+20 MEQ KCL - 20 MEQ/1,000 ML INFUS.BAG IV SCH ×2 (03:15→14:50)
[2018-02-16] MEDS: HEPARIN NA (PORCINE) 5,000 UNITS/ML 1ML VIAL SQ SCH ×3 (03:15→21:20)
--- NOTE | 2018-02-16 07:13 | PN ---
Progress Note, Physician Chief Complaint: abdominal pain History of Present Illness: 62 yo female no significant past medical history. Who presents to the ED with sharp intermittent abdominal pain x 1 week. Hemodynamically stable during the post-operative period. no complaints - Current Medication List Current Medications: Active Medications Acetaminophen (Ofirmev Injection -) 1,000 mg IVPB Q6H PRN PRN Reason: Pain Level 1 - 10 BREAKTHROUGH Last Admin: 02/15/18 17:38 Dose: 1,000 mg Heparin Sodium (Porcine) (Heparin -) 5,000 unit SQ TID LEO Last Admin: 02/16/18 03:15 Dose: 5,000 unit Hydromorphone HCl (Dilaudid Lead Relay Tester -) 10 mg MANAGER SPANISH MANAGER SPANISH [facility]; Protocol Stop: 02/19/18 18:18 Last Admin: 02/15/18 19:30 Dose: Not Given Potassium Chloride/Dextrose/Sod Cl (D5-1/2ns+20 Meq Kcl -) 20 meq in 1,000 mls @ 83 mls/hr IV ASDIR LEO Last Admin: 02/16/18 03:15 Dose: 83 mls/hr Ondansetron HCl (Zofran Injection) 4 mg IVPUSH Q6H PRN PRN Reason: NAUSEA - Objective Vital Signs: Vital Signs Temperature 98.4 F 02/16/18 05:06 Pulse Rate 90 02/16/18 05:06 Respiratory Rate 20 02/16/18 05:06 Blood Pressure 132/80 02/16/18 05:06 O2 Sat by Pulse Oximetry (%) 98 02/15/18 19:58 Vital Signs Period Temp Pulse Resp BP Sys/Celeste Pulse Ox Last 24 Hr 98.2 F-99 F 86-112 18-20 120-136/70-85 98-98 Intake & Output 02/15/18 02/15/18 02/16/18 15:59 23:59 07:59 Intake Total 996 0 996 Output Total 500 25 50 Balance 496 -25 946 Intake: IV 996 996 D5-1/2NS+20 MEQ KCL - 20 996 996 meq In 1,000 ml @ 83 mls/ hr IV ASDIR LEO Rx#: [id number] IVPB 0 Oral 0 0 Output: Gastric Drainage 500 25 50 Other: Voiding Method Bedside Commode Incontinent Incontinent # Unmeasured Voids Void 3 3 Bowel Movement No No No # Bowel Movements 0 Constitutional: Yes: Well Nourished, No Distress, Calm Eyes: Yes: Conjunctiva Clear, EOM Intact HENT: Yes: Atraumatic, Normocephalic Neck: Yes: Supple, Trachea Midline Cardiovascular: Yes: Regular Rate and Rhythm, S1, S2 Respiratory: Yes: Regular, CTA Bilaterally. No: On Nasal O2 Gastrointestinal: Yes: Normal Bowel Sounds, Soft, Tenderness (incisonal) ...Rectal Exam: Yes: Deferred Genitourinary: No: CVA Tenderness - Left, CVA Tenderness - Right Musculoskeletal: No: Muscle Pain, Muscle Weakness Extremities: No: Cool, Cyanosis Edema: No Peripheral Pulses WNL: Yes Peripheral Pulses: Left Radial: 2+, Right Radial: 2+, Left Doralis Pedis: 2+, Right Dorsalis Pedis: 2+ Integumentary: No: Bruising, Incision, Jaundice Wound/Incision: Yes: Clean/Dry, Well Approximated, Yakov Intact Neurological: Yes: Alert, Oriented Psychiatric: Yes: Alert, Oriented Labs: CBC, BMP 02/14/18 06:00 02/14/18 06:00 INR, PTT INR 1.08 (0.83-1.09) 02/11/18 17:40 Problem List - Problems (1) Generalized abdominal pain Assessment/Plan: POD#3 s/p Exp Lap and small bowel segmental ressection w/ primary anastomosis, no reported BM, + flatus, no abdominal distension, NGT only 25 & 50ml in 24hours. discontinue NGT D/C NC oxygen OOB and ambulate adequate analgesia continue MANAGER SPANISH until complete bowel fucntion encosurge IS will follow Code(s): R10.84 - GENERALIZED ABDOMINAL PAIN (2) Intestinal obstruction Code(s): K56.609 - UNSP INTESTNL OBST, UNSP TO PARTIAL VERSUS COMPLETE OBST Qualifiers: Intestinal obstruction type: other intestinal obstruction Intestinal obstruction extent: unspecified extent Qualified Code(s): K56.699 - Other intestinal obstruction unspecified as to partial versus complete obstruction (3) Mental retardation Code(s): F79 - UNSPECIFIED INTELLECTUAL DISABILITIES (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
--- NOTE | 2018-02-16 07:53 | PN ---
Progress Note (short form) - Note Progress Note: Anesthesia COMBINED RAIL OPERATOR Note Pt s/p ex-lap and small bowel resection on 02/12/18. Pt currently on dilaudid COMBINED RAIL OPERATOR and reports good relief. Denies N/V. NGT removed. Vital Signs Temperature 98.4 F 02/16/18 05:06 Pulse Rate 90 02/16/18 05:06 Respiratory Rate 20 02/16/18 05:06 Blood Pressure 132/80 02/16/18 05:06 O2 Sat by Pulse Oximetry (%) 98 02/15/18 19:58 Continue COMBINED RAIL OPERATOR at current settings. Bowel regimen with pain medication. Encourage IS. OOB. Continue care per primary team.
[2018-02-16 09:19] LABS: ANION GAP 8 MMOL/L (8-16); BLOOD UREA NITROGEN 7 mg/dL (7-18); CALCIUM 8.3 mg/dL (8.5-10.1); CHLORIDE 100 mmol/L (98-107); CO2 30 mmol/L (21-32); CREATININE 0.4 mg/dL (0.55-1.02); GLUCOSE,RANDOM 109 mg/dL (74-106); POTASSIUM 3.9 mmol/L (3.5-5.1); SODIUM 138 mmol/L (136-145)
--- NOTE | 2018-02-16 11:28 | PN ---
Teaching Attending Note Name of Resident: Darling Rodgers ATTENDING PHYSICIAN STATEMENT I saw and evaluated the patient. I reviewed the resident's note and discussed the case with the resident. I agree with the resident's findings and plan as documented. SUBJECTIVE:requesting to eat. some abdominal pain but states it has improved. denies Cp, SOB, fever, chills, N/v/C/D. +flatus per notes (pt is unsure) no BM OBJECTIVE: Last Vital Signs Temp Pulse Resp BP Pulse Ox 98.6 F 89 20 140/74 93 L 02/16/18 08:39 02/16/18 08:39 02/16/18 08:39 02/16/18 08:39 02/16/18 09:00 Intake & Output 02/13/18 02/14/18 02/15/18 02/16/18 23:59 23:59 23:59 23:59 Intake Total 1100 1096 1992 996 Output Total 777 320 4252 50 Balance 750 696 667 946 Weight 145 lb General NAD Abdomen soft NT/ND hypoactive BS ASSESSMENT AND PLAN: 62yo F with no PMH presented with worsening abdominal pain x1 week with nausea and vomiting and found to have a high grade SBO 1. High grade SBO-s/p ex-lap with anastomosis. 02/12. distal SB mass identified in the mid-ileum. + flatus. NGT removed today. cont NPO, IVF, serial abdominal exams. VAMP PRESSER pump for pain (unclear if patient understands how to use this pump. multiple reinforcements) will consider switching over to morphine IVP prn tomorrow if not utilizing. OOB to chair, incentive spirometer. surgery and GI on board 2. Fever-afebrile >24H. Likely due to surgery. will check cx if spike Tm >101. will hold abx at this time 3. CANAS- likely due to hunger. now resolved 4. mental retardation 5. DVT ppx- Hep sq
[2018-02-16] MEDS: HYDROmorphone *PCA* 10MG/50ML DISP.SYRIN PCA SCH ×3 (13:04→19:30)
--- NOTE | 2018-02-16 14:34 | PN ---
Physical Exam: SUBJECTIVE: Patient seen and examined at bedside this morning. Patient notes improvement of belly pain. She has been given a total of 1mg Dilaudid overnight. Pt reports relief of headache and sore throat after NGT was removed. OBJECTIVE: Vital Signs Period Temp Pulse Resp BP Sys/Celeste Pulse Ox Last 24 Hr 98.4 F-98.6 F 86-96 20-20 130-140/70-80 93-98 GENERAL: The patient is awake, alert, and fully oriented, in no acute distress. HEAD: Normal with no signs of trauma. EYES: PERRL, extraocular movements intact, sclera anicteric, conjunctiva clear. ENT: Ears normal, nares patent, oropharynx clear without exudates, moist mucous membranes. NECK: Trachea midline, full range of motion, supple. LUNGS: Breath sounds equal, clear to auscultation bilaterally. HEART: Regular rate and rhythm, S1, S2 without murmur, rub or gallop. ABDOMEN: Soft, +tenderness on palpation of all quadrants, nondistended, normoactive bowel sounds. EXTREMITIES: 2+ pulses, warm, well-perfused, no edema. NEUROLOGICAL: Cranial nerves II through XII grossly intact. Normal speech, gait not observed. PSYCH: Normal mood, normal affect. SKIN: Warm, dry, normal turgor, no rashes or lesions noted Laboratory Results - last 24 hr 02/16/18 08:01 Sodium 138 Potassium 3.9 Chloride 100 Carbon Dioxide 30 Anion Gap 8 BUN 7 Creatinine 0.4 L Creat Clearance w eGFR > 60 Random Glucose 109 H Calcium 8.3 L Active Medications Generic Name Dose Route Start Last Admin Trade Name Cheri PRN Reason Stop Dose Admin Acetaminophen 1,000 mg 02/12/18 19:21 02/15/18 17:38 Ofirmev Injection - IVPB 1,000 mg Q6H PRN Administration Pain Level 1 - 10 BREAKTHROUGH Heparin Sodium (Porcine) 5,000 unit 02/12/18 22:00 02/16/18 03:15 Heparin - SQ 5,000 unit TID LEO Administration Hydromorphone HCl 10 mg 02/12/18 19:21 02/16/18 13:04 Dilaudid Striper - PACKING TRACTOR MACHINE OPERATOR 02/19/18 18:18 Not Given PACKING TRACTOR MACHINE OPERATOR LEO Protocol Potassium Chloride/Dextrose/Sod Cl 20 meq in 1,000 mls @ 83 mls/hr 02/13/18 16 :54 02/16/18 03:15 D5-1/2ns+20 Meq Kcl - IV 83 mls/hr ASDIR LEO Administration Ondansetron HCl 4 mg 02/12/18 19:21 Zofran Injection IVPUSH Q6H PRN NAUSEA Imaging ASSESSMENT/PLAN: Patient is a 62 year old female with no past medical history presented with intermittent abdominal pain for 1 week accompanied by NBNB vomiting and watery diary of 1 day. #Small bowel obstruction: POD4 s/p small bowel resection -patient has no history of any abdominal surgery. -No Family history of CA. Last colonoscopy 12 years ago. As per pt, it was normal. -Intermittent abdominal pain, especially on incision site. -No bowel movement yet, denies passing gas. -Dr. Razo consulted. Recommendations appreciated. -Post-op findings: Small bowel mass in distal SB, around proximal to mid-ileum; dilated proximally, collapsed distally; resected 2cm -Pathology report pending. -Still on NPO. May consider advancing to clear liquid diet as per Surgery. -IVF - D5-1/2NS @83ml/hr -NGT removed. Pt reports relief of headache and sore throat. -Pain managed with PACKING TRACTOR MACHINE OPERATOR, await bowel function. -IV Tylenol given for breakthrough pain. -Encouraged OOB/ambulation to bathroom PRN -Completed perioperative antibiotics 24 h -CBC, CMP monitoring while NPO. -Dr. Fernandez consulted. Recommendations appreciated. -Intake and urine output monitored #Headache, resolved -Patient on NPO. -NGT removed. Pt reports relief of headache and sore throat. -patient on PACKING TRACTOR MACHINE OPERATOR, Tylenol #FEN -IV D5-1/2NS at 83ml/hr -electrolytes wnl, routine bmp monitoring -NPO for now #PPx -Heparin 5000units sq tid #Disposition -POD 4 Visit type - Emergency Visit Emergency Visit: Yes ED Registration Date: 02/11/18 Care time: The patient presented to the Emergency Department on the above date and was hospitalized for further evaluation of their emergent condition. - New Patient This patient is new to me today: Yes Date on this admission: 02/16/18 - Critical Care Critical Care patient: No
[2018-02-17] MEDS: D5-1/2NS+20 MEQ KCL - 20 MEQ/1,000 ML INFUS.BAG IV SCH ×3 (02:58→17:04)
[2018-02-17] MEDS: HEPARIN NA (PORCINE) 5,000 UNITS/ML 1ML VIAL SQ SCH ×3 (05:55→21:31)
[2018-02-17 07:23] LABS: BASO % 0.7 % (0-2.0); EOS % 4.4 % (0-4.5); HEMATOCRIT 40.2 % (32.4-45.2); HEMOGLOBIN 13.2 GM/dL (10.7-15.3); LYMPH % 15.1 % (8-40); MCH 28.7 pg (25.7-33.7); MCHC 32.9 g/dl (32.0-36.0); MEAN CELL VOLUME 87.2 fl (80-96); MEAN PLT VOLUME 8.1 fl (7.5-11.1); MONO % 12.7 % (3.8-10.2); NEUT % 67.1 % (42.8-82.8); PLATELET COUNT 205 K/MM3 (134-434); RBC 4.61 M/mm3 (3.60-5.2); RDW 13.7 % (11.6-15.6); WHITE BLOOD COUNT 4.5 K/mm3 (4.0-10.0)
[2018-02-17 07:55] LABS: CHLORIDE 104 mmol/L (98-107); POTASSIUM 3.9 mmol/L (3.5-5.1); SODIUM 140 mmol/L (136-145)
[2018-02-17 08:19] LABS: ALBUMIN 2.4 g/dl (3.4-5.0); ALK PHOS 80 U/L (45-117); ANION GAP 9 MMOL/L (8-16); BILIRUBIN,TOTAL 0.6 mg/dL (0.2-1.0); BLOOD UREA NITROGEN 7 mg/dL (7-18); CO2 27 mmol/L (21-32); CREATININE 0.3 mg/dL (0.55-1.02); GLUCOSE,RANDOM 105 mg/dL (74-106); MAGNESIUM 2.2 mg/dL (1.8-2.4); PHOSPHOROUS 3.9 mg/dL (2.5-4.9); SGOT/AST 9 U/L (15-37); SGPT/ALT 19 U/L (12-78); TOT PROT 5.8 g/dl (6.4-8.2)
--- NOTE | 2018-02-17 08:22 | PN ---
Teaching Attending Note Name of Resident: Darling Rodgers ATTENDING PHYSICIAN STATEMENT I saw and evaluated the patient. I reviewed the resident's note and discussed the case with the resident. I agree with the resident's findings and plan as documented with exceptions below. SUBJECTIVE: Patient seen and examined. Pain improved, wants to eat, no new complaints. OBJECTIVE: Vital Signs Period Temp Pulse Resp BP Sys/Celeste Pulse Ox Last 24 Hr 98.2 F-98.6 F 70-89 20-20 140-146/74-80 93-93 Intake & Output 02/14/18 02/15/18 02/16/18 02/17/18 23:59 23:59 23:59 23:59 Intake Total 1096 1991 1991 996 Output Total 400 1325 50 Balance 661 821 7401 996 General; lying in bed in no acute distress Chest: CTAB, no rales or wheezing Abdomen: soft, mild distension, surgical incision site with praveena clean, no surrounding erythema, or discharge noted. Tenderness around the incision site, positive bowel sounds, no voluntary or involuntary guarding or rigidity Extremities: no edema Home Medications Medication Instructions Recorded NK [No Known Home Medication] 02/11/18 Active Medications Acetaminophen (Ofirmev Injection -) 1,000 mg IVPB Q6H PRN PRN Reason: Pain Level 1 - 10 BREAKTHROUGH Last Admin: 02/15/18 17:38 Dose: 1,000 mg Heparin Sodium (Porcine) (Heparin -) 5,000 unit SQ TID LEO Last Admin: 02/17/18 05:55 Dose: 5,000 unit Hydromorphone HCl (Dilaudid Chin Strap Maker -) 10 mg DOG DAY CARE ATTENDANT DOG DAY CARE ATTENDANT [facility]; Protocol Stop: 02/19/18 18:18 Last Admin: 02/16/18 19:30 Dose: Not Given Potassium Chloride/Dextrose/Sod Cl (D5-1/2ns+20 Meq Kcl -) 20 meq in 1,000 mls @ 83 mls/hr IV ASDIR LEO Last Admin: 02/17/18 02:58 Dose: 83 mls/hr Ondansetron HCl (Zofran Injection) 4 mg IVPUSH Q6H PRN PRN Reason: NAUSEA Laboratory Results - last 24 hr 02/17/18 02/17/18 07:00 07:00 WBC 4.5 RBC 4.61 Hgb 13.2 Hct 40.2 MCV 87.2 MCH 28.7 MCHC 32.9 RDW 13.7 Plt Count 205 D MPV 8.1 D Absolute Neuts (auto) 3.0 Neutrophils % 67.1 Lymphocytes % 15.1 D Monocytes % 12.7 H Eosinophils % 4.4 D Basophils % 0.7 D Nucleated RBC % 0 Sodium 140 Potassium 3.9 Chloride 104 Carbon Dioxide 27 Anion Gap 9 BUN 7 Creatinine 0.3 L Creat Clearance w eGFR > 60 Random Glucose 105 Calcium 9.0 Phosphorus 3.9 Magnesium 2.2 Total Bilirubin 0.6 AST 9 L ALT 19 Alkaline Phosphatase 80 Total Protein 5.8 L Albumin 2.4 L Microbiology 02/11/18 18:50 Urine - Urine Clean Catch Urine Culture - Final CT a/P from 02/11 results reviewed ASSESSMENT AND PLAN: 62yo F with no PMH presented with worsening abdominal pain x1 week with nausea and vomiting and found to have a high grade SBO and Small bowel mass -High grade SBO/Small bowel mass s/p resection/primary anastomosis 02/12 -Low grade fever post op day 1, resolved Plan: Passing flatus, off NG tube, no concerns. Advance diet per surgery. serial abdominal exams. IVF. D/c dilaudid DOG DAY CARE ATTENDANT once tolerating po. tylenol prn. IVF till PO intake adequate. Await pathology results. Incentive spirometry DVTPPX heparin Dispo pending clinical improvement. Plan discussed with patient in detail, all questions answered.
[2018-02-17] MEDS ORDERED: METOCLOPRAMIDE HCL INJECTION 10 MG/2 ML VIAL IVPUSH ONE (12:17)
--- NOTE | 2018-02-17 12:20 | PN ---
Progress Note, Physician History of Present Illness: Pt s/p SB resection for mass causing obstruction. Has TRANSCRIPT CLERK for pain but using minimally per nursing. NGT removed yesterday, had passed flatus. No BM yet. Voiding in diaper or bedside commode. Thirsty/hungry, c/o some pain in abdomen. No fever or nausea. Has ambulated in hallways with and without walker, with assistance. - Current Medication List Current Medications: Active Medications Acetaminophen (Ofirmev Injection -) 1,000 mg IVPB Q6H PRN PRN Reason: Pain Level 1 - 10 BREAKTHROUGH Last Admin: 02/15/18 17:38 Dose: 1,000 mg Heparin Sodium (Porcine) (Heparin -) 5,000 unit SQ TID LEO Last Admin: 02/17/18 05:55 Dose: 5,000 unit Hydromorphone HCl (Dilaudid Director Oncology -) 10 mg TRANSCRIPT CLERK TRANSCRIPT CLERK [facility]; Protocol Stop: 02/19/18 18:18 Last Admin: 02/16/18 19:30 Dose: Not Given Potassium Chloride/Dextrose/Sod Cl (D5-1/2ns+20 Meq Kcl -) 20 meq in 1,000 mls @ 83 mls/hr IV ASDIR LEO Last Admin: 02/17/18 02:58 Dose: 83 mls/hr Ondansetron HCl (Zofran Injection) 4 mg IVPUSH Q6H PRN PRN Reason: NAUSEA - Objective Vital Signs: Vital Signs Temperature 98.4 F 02/17/18 06:00 Pulse Rate 82 02/17/18 06:00 Respiratory Rate 20 02/17/18 06:00 Blood Pressure 118/90 02/17/18 06:00 O2 Sat by Pulse Oximetry (%) 93 L 02/16/18 21:00 Constitutional: Yes: Well Nourished, No Distress, Calm Eyes: Yes: Conjunctiva Clear, EOM Intact HENT: Yes: Atraumatic, Normocephalic Cardiovascular: Yes: Regular Rate and Rhythm Respiratory: Yes: Regular, CTA Bilaterally, Other (using IS) Gastrointestinal: Yes: Soft, Hypoactive Bowel Sounds, Tenderness (incisional and minimal to sides). No: Distention, Tenderness, Rebound Genitourinary: Yes: Incontinence. No: Valdovinos Present Extremities: Yes: Deformity (rheumatoid hand joint deformities). No: Cool, Cyanosis Integumentary: Yes: Incision (midline w/praveena). No: Jaundice, Rash Wound/Incision: Yes: Clean/Dry, Well Approximated, Praveena Intact, Open to air. 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 Assessment/Plan: POD5 s/p small bowel resection for mass causing obstruction pain minimal - will d/c TRANSCRIPT CLERK tylenol po and ibuprofen iv alternating for pain until taking po continue OOB/ambulation/IS await bowel function - passed flatus but no BM yet, no distention, no nausea will give one dose reglan monitor lytes while NPO DVT prophylaxis await pathology results Code(s): D37.2 - NEOPLASM OF UNCERTAIN BEHAVIOR OF SMALL INTESTINE (2) Intestinal obstruction Assessment/Plan: high-grade, near complete obstruction from mass, now resected await resumption of bowel function Code(s): K56.609 - UNSP INTESTNL OBST, UNSP TO PARTIAL VERSUS COMPLETE OBST Qualifiers: Intestinal obstruction type: other intestinal obstruction Intestinal obstruction extent: unspecified extent Qualified Code(s): K56.699 - Other intestinal obstruction unspecified as to partial versus complete obstruction (3) Generalized abdominal pain Code(s): R10.84 - GENERALIZED ABDOMINAL PAIN (4) Abdominal distention Assessment/Plan: resolved Code(s): R14.0 - ABDOMINAL DISTENSION (GASEOUS) (5) Mental retardation Code(s): F79 - UNSPECIFIED INTELLECTUAL DISABILITIES
--- NOTE | 2018-02-17 13:08 | PN ---
Physical Exam: SUBJECTIVE: Patient seen and examined at bedside this morning. Patient has no new complaints. No acute events overnight. OBJECTIVE: Vital Signs Period Temp Pulse Resp BP Sys/Celeste Pulse Ox Last 24 Hr 98.2 F-98.4 F 70-82 20-20 118-146/80-90 93 GENERAL: The patient is awake, alert, and fully oriented, in no acute distress. HEAD: Normal with no signs of trauma. NECK: Trachea midline, full range of motion, supple. LUNGS: Breath sounds equal, clear to auscultation bilaterally. HEART: Regular rate and rhythm, S1, S2 without murmur, rub or gallop. ABDOMEN: Soft, nontender, nondistended, normoactive bowel sounds. EXTREMITIES: 2+ pulses, warm, well-perfused, no edema. NEUROLOGICAL: Cranial nerves II through XII grossly intact. Normal speech, gait not observed. PSYCH: Normal mood, normal affect. SKIN: Warm, dry, normal turgor, no rashes or lesions noted Laboratory Results - last 24 hr 02/17/18 02/17/18 07:00 07:00 WBC 4.5 RBC 4.61 Hgb 13.2 Hct 40.2 MCV 87.2 MCH 28.7 MCHC 32.9 RDW 13.7 Plt Count 205 D MPV 8.1 D Absolute Neuts (auto) 3.0 Neutrophils % 67.1 Lymphocytes % 15.1 D Monocytes % 12.7 H Eosinophils % 4.4 D Basophils % 0.7 D Nucleated RBC % 0 Sodium 140 Potassium 3.9 Chloride 104 Carbon Dioxide 27 Anion Gap 9 BUN 7 Creatinine 0.3 L Creat Clearance w eGFR > 60 Random Glucose 105 Calcium 9.0 Phosphorus 3.9 Magnesium 2.2 Total Bilirubin 0.6 AST 9 L ALT 19 Alkaline Phosphatase 80 Total Protein 5.8 L Albumin 2.4 L Active Medications Generic Name Dose Route Start Last Admin Trade Name Freq PRN Reason Stop Dose Admin Acetaminophen 650 mg 02/17/18 15:30 Tylenol - PO Q6H LEO Heparin Sodium (Porcine) 5,000 unit 02/12/18 22:00 02/17/18 05:55 Heparin - SQ 5,000 unit TID LEO Administration Potassium Chloride/Dextrose/Sod Cl 20 meq in 1,000 mls @ 83 mls/hr 02/13/18 16 :54 02/17/18 02:58 D5-1/2ns+20 Meq Kcl - IV 83 mls/hr ASDIR LEO Administration Ibuprofen 600 mg 02/17/18 12:30 Caldolor Injection - IVPB Q6H LEO Ondansetron HCl 4 mg 02/12/18 19:21 Zofran Injection IVPUSH Q6H PRN NAUSEA Imaging CXR - No acute chest pathology. No significant change. CT abd/pelvis w/o contrast - A high-grade distal small bowel obstruction is noted. There is equivocal visualization of a [id number] soft tissue polypoid lesion within the right paramedian aspect of the midabdomen ventrally versus representing artifactual focal thickening due to a collapsed bowel loop. 0.3cm nonobstructing left renal calculus. ASSESSMENT/PLAN: Patient is a 62 year old female with no past medical history presented with intermittent abdominal pain for 1 week accompanied by NBNB vomiting and watery diary of 1 day. #Small bowel obstruction: POD5 s/p small bowel resection -patient has no history of any abdominal surgery. -No Family history of CA. Last colonoscopy 12 years ago. As per pt, it was normal. -Intermittent abdominal pain, especially on incision site. -No bowel movement yet, denies passing gas. -Dr. Razo consulted. Recommendations appreciated. -Post-op findings: Small bowel mass in distal SB, around proximal to mid-ileum; dilated proximally, collapsed distally; resected 2cm -Pathology report pending. -Still on NPO. May consider advancing to clear liquid diet as per Surgery. -IVF - D5-1/2NS @83ml/hr -NGT removed. Pt reports relief of headache and sore throat. -SERVICE CAR OPERATOR discontinued as per surgery. -IV Tylenol and Ibuprofen alternating for breakthrough pain. -Encouraged OOB/ambulation to bathroom PRN -Completed perioperative antibiotics 24 h -CBC, CMP monitoring while NPO. -Intake and urine output monitored #FEN -IV D5-1/2NS at 83ml/hr -electrolytes wnl, routine bmp monitoring -NPO for now #PPx -Heparin 5000units sq tid #Disposition -POD 5 -Await pathology report Visit type - Emergency Visit Emergency Visit: Yes ED Registration Date: 02/11/18 Care time: The patient presented to the Emergency Department on the above date and was hospitalized for further evaluation of their emergent condition. - New Patient This patient is new to me today: Yes Date on this admission: 02/17/18 - Critical Care Critical Care patient: No
[2018-02-17] MEDS: IBUPROFEN 800 MG/8 ML IJ IVPB SCH ×2 (13:59→18:20)
[2018-02-17] MEDS: ACETAMINOPHEN 325 MG TABLET (FP) PO SCH ×2 (16:58→21:36)
[2018-02-18] MEDS: IBUPROFEN 800 MG/8 ML IJ IVPB SCH ×3 (01:07→13:12)
[2018-02-18] MEDS: ACETAMINOPHEN 325 MG TABLET (FP) PO SCH ×4 (02:49→21:45)
[2018-02-18] MEDS: HEPARIN NA (PORCINE) 5,000 UNITS/ML 1ML VIAL SQ SCH ×3 (06:24→21:45)
[2018-02-18 07:52] LABS: BASO % 0.8 % (0-2.0); EOS % 3.8 % (0-4.5); HEMATOCRIT 40.5 % (32.4-45.2); HEMOGLOBIN 13.4 GM/dL (10.7-15.3); LYMPH % 14.5 % (8-40); MCH 28.9 pg (25.7-33.7); MCHC 33.2 g/dl (32.0-36.0); MEAN PLT VOLUME 8.7 fl (7.5-11.1); MONO % 9.1 % (3.8-10.2); NEUT % 71.8 % (42.8-82.8); PLATELET COUNT 227 K/MM3 (134-434); RBC 4.65 M/mm3 (3.60-5.2); RDW 13.9 % (11.6-15.6); WHITE BLOOD COUNT 4.9 K/mm3 (4.0-10.0)
--- NOTE | 2018-02-18 08:03 | PN ---
Teaching Attending Note Name of Resident: Darling Rodgers ATTENDING PHYSICIAN STATEMENT I saw and evaluated the patient. I reviewed the resident's note and discussed the case with the resident. I agree with the resident's findings and plan as documented with exceptions below. SUBJECTIVE: patient seen and examined. Denies any nausea, vomiting or pain. passed gas. Asking for food. OBJECTIVE: Vital Signs Period Temp Pulse Resp BP Sys/Celeste Pulse Ox Last 24 Hr 97.4 F-98.5 F 74-83 18-20 120-138/74-79 93-95 Intake & Output 02/15/18 02/16/18 02/17/18 02/18/18 23:59 23:59 23:59 23:59 Intake Total 1991 1991 2492 1296 Output Total 1325 50 Balance 1941 2492 1296 General; sitting in wheelchair in no acute distress Abdomen: soft, positive bowel sounds, mild distension, improved from yesterday, tenderness around the incision site Active Medications Acetaminophen (Tylenol -) 650 mg PO Q6H [facility] Last Admin: 02/18/18 02:49 Dose: 650 mg Heparin Sodium (Porcine) (Heparin -) 5,000 unit SQ TID [facility] Last Admin: 02/18/18 06:24 Dose: 5,000 unit Potassium Chloride/Dextrose/Sod Cl (D5-1/2ns+20 Meq Kcl -) 20 meq in 1,000 mls @ 83 mls/hr IV ASDIR [facility] Last Admin: 02/17/18 17:04 Dose: 83 mls/hr Ibuprofen (Caldolor Injection -) 600 mg IVPB Q6H [facility] Last Admin: 02/18/18 06:24 Dose: 600 mg Ondansetron HCl (Zofran Injection) 4 mg IVPUSH Q6H PRN PRN Reason: NAUSEA Laboratory Results - last 24 hr 02/18/18 02/18/18 06:20 06:20 WBC 4.9 RBC 4.65 Hgb 13.4 Hct 40.5 MCV 87.0 MCH 28.9 MCHC 33.2 RDW 13.9 Plt Count 227 MPV 8.7 Absolute Neuts (auto) 3.5 Neutrophils % 71.8 Lymphocytes % 14.5 Monocytes % 9.1 Eosinophils % 3.8 Basophils % 0.8 Nucleated RBC % 0 Sodium 141 Potassium 3.9 Chloride 106 Carbon Dioxide 28 Anion Gap 7 L BUN 9 Creatinine 0.3 L Creat Clearance w eGFR > 60 Random Glucose 92 Calcium 8.6 Phosphorus 4.5 Magnesium 2.2 ASSESSMENT AND PLAN: 62yo F with no PMH presented with worsening abdominal pain x1 week with nausea and vomiting and found to have a high grade SBO and Small bowel mass -High grade SBO/Small bowel mass s/p resection/primary anastomosis / -Low grade fever post op day 1, resolved Plan: Passing flatus, off NG tube, no concerns. Discussed with Dr. Razo, advance to clears. 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 Oncology input accordingly. IVF. Off dilaudid AUTOMOBILE RELOCATION ENGINEER.tylenol/motrin for pain. IVF till PO intake adequate. Incentive spirometry DVTPPX heparin Dispo pending clinical improvement. Plan discussed with patient in detail, all questions answered.
[2018-02-18 08:53] LABS: ANION GAP 7 MMOL/L (8-16); BLOOD UREA NITROGEN 9 mg/dL (7-18); CALCIUM 8.6 mg/dL (8.5-10.1); CHLORIDE 106 mmol/L (98-107); CO2 28 mmol/L (21-32); CREATININE 0.3 mg/dL (0.55-1.02); GLUCOSE,RANDOM 92 mg/dL (74-106); MAGNESIUM 2.2 mg/dL (1.8-2.4); PHOSPHOROUS 4.5 mg/dL (2.5-4.9); POTASSIUM 3.9 mmol/L (3.5-5.1); SODIUM 141 mmol/L (136-145)
[2018-02-18] MEDS: D5-1/2NS+20 MEQ KCL - 20 MEQ/1,000 ML INFUS.BAG IV SCH (09:36)
--- NOTE | 2018-02-18 10:24 | PN ---
Progress Note, Physician History of Present Illness: Pt s/p SB resection for mass causing obstruction. 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 No BM yet. Voiding in diaper or bedside commode. Thirsty/hungry, tolerating ice chips and meds w/sips. No fever or nausea. - Current Medication List Current Medications: Active Medications Acetaminophen (Tylenol -) 650 mg PO Q6H [facility] Last Admin: 02/18/18 09:34 Dose: 650 mg Heparin Sodium (Porcine) (Heparin -) 5,000 unit SQ TID [facility] Last Admin: 02/18/18 06:24 Dose: 5,000 unit Potassium Chloride/Dextrose/Sod Cl (D5-1/2ns+20 Meq Kcl -) 20 meq in 1,000 mls @ 83 mls/hr IV ASDIR [facility] Last Admin: 02/18/18 09:36 Dose: 83 mls/hr Ibuprofen (Caldolor Injection -) 600 mg IVPB Q6H [facility] Last Admin: 02/18/18 06:24 Dose: 600 mg Ondansetron HCl (Zofran Injection) 4 mg IVPUSH Q6H PRN PRN Reason: NAUSEA - Objective Vital Signs: Vital Signs Temperature 97.7 F 02/18/18 05:00 Pulse Rate 74 02/18/18 05:00 Respiratory Rate 18 02/18/18 05:00 Blood Pressure 131/79 02/18/18 05:00 O2 Sat by Pulse Oximetry (%) 95 02/17/18 21:00 Constitutional: Yes: Well Nourished, No Distress, Calm Eyes: Yes: Conjunctiva Clear, EOM Intact HENT: Yes: Atraumatic, Normocephalic Gastrointestinal: Yes: Soft, Hypoactive Bowel Sounds, Tenderness (incisional with minimal to sides). No: Distention (minimal) Extremities: No: Cool, Cyanosis Integumentary: Yes: Incision (midline w/praveena). No: Rash Wound/Incision: Yes: Clean/Dry, Well Approximated, Praveena Intact, Open to air Neurological: Yes: Alert, Oriented. No: Unsteady Gait (walking well with walker or assistance) Labs: CBC, BMP 02/18/18 06:20 02/18/18 06:20 Problem List - Problems (1) Malignant carcinoid tumor of ileum Assessment/Plan: POD6 s/p small bowel resection for mass causing obstruction spoke with pathologist - tumor is neuroendocrine (carcinoid) with lymphatic invasion, awaiting stains to determine grade, will need staging and oncology consult Dr. Mcintyre aware - will consult Dr. Bajwa after speaking with patient and later today pain managed well with tylenol po and ibuprofen iv alternating continue OOB/ambulation/IS await complete bowel function - passed flatus but no BM yet, no distention, no nausea will start clears today and stop IVF when tolerating DVT prophylaxis discussed with Dr. Suárez and primary team in person Code(s): C7A.012 - MALIGNANT CARCINOID TUMOR OF THE ILEUM (2) Intestinal obstruction Assessment/Plan: resolved Code(s): K56.609 - UNSP INTESTNL OBST, UNSP TO PARTIAL VERSUS COMPLETE OBST Qualifiers: Intestinal obstruction type: other intestinal obstruction Intestinal obstruction extent: unspecified extent Qualified Code(s): K56.699 - Other intestinal obstruction unspecified as to partial versus complete obstruction (3) Generalized abdominal pain Assessment/Plan: now mainly incisional Code(s): R10.84 - GENERALIZED ABDOMINAL PAIN (4) Mental retardation Code(s): F79 - UNSPECIFIED INTELLECTUAL DISABILITIES
--- NOTE | 2018-02-18 12:21 | PN ---
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 Caro Morin MD.
--- NOTE | 2018-02-18 13:16 | PN ---
Physical Exam: SUBJECTIVE: Patient seen and examined at bedside this morning. Patient reports passing of gas, but no bowel movements yet. Patient denies OBJECTIVE: Vital Signs Period Temp Pulse Resp BP Sys/Celeste Pulse Ox Last 24 Hr 97.7 F-98.5 F 72-80 18-20 120-131/74-79 95 GENERAL: The patient is awake, alert, and fully oriented, in no acute distress. HEAD: Normal with no signs of trauma. NECK: Trachea midline, full range of motion, supple. LUNGS: Breath sounds equal, clear to auscultation bilaterally. HEART: Regular rate and rhythm, S1, S2 without murmur, rub or gallop. ABDOMEN: Soft, nontender, nondistended, normoactive bowel sounds. EXTREMITIES: 2+ pulses, warm, well-perfused, no edema. NEUROLOGICAL: Cranial nerves II through XII grossly intact. Normal speech, gait not observed. PSYCH: Normal mood, normal affect. SKIN: Warm, dry, normal turgor, no rashes or lesions noted Laboratory Results - last 24 hr 02/18/18 02/18/18 06:20 06:20 WBC 4.9 RBC 4.65 Hgb 13.4 Hct 40.5 MCV 87.0 MCH 28.9 MCHC 33.2 RDW 13.9 Plt Count 227 MPV 8.7 Absolute Neuts (auto) 3.5 Neutrophils % 71.8 Lymphocytes % 14.5 Monocytes % 9.1 Eosinophils % 3.8 Basophils % 0.8 Nucleated RBC % 0 Sodium 141 Potassium 3.9 Chloride 106 Carbon Dioxide 28 Anion Gap 7 L BUN 9 Creatinine 0.3 L Creat Clearance w eGFR > 60 Random Glucose 92 Calcium 8.6 Phosphorus 4.5 Magnesium 2.2 CBC, BMP 02/18/18 06:20 02/18/18 06:20 Active Medications Generic Name Dose Route Start Last Admin Trade Name Freq PRN Reason Stop Dose Admin Acetaminophen 650 mg 02/17/18 15:30 02/18/18 09:34 Tylenol - PO 650 mg Q6H [facility] Administration Heparin Sodium (Porcine) 5,000 unit 02/12/18 22:00 02/18/18 13:13 Heparin - SQ 5,000 unit TID [facility] Administration Potassium Chloride/Dextrose/Sod Cl 20 meq in 1,000 mls @ 83 mls/hr 02/13/18 16 :54 02/18/18 09:36 D5-1/2ns+20 Meq Kcl - IV 83 mls/hr ASDIR [facility] Administration Ibuprofen 600 mg 02/17/18 12:30 02/18/18 13:12 Caldolor Injection - IVPB 600 mg Q6H [facility] Administration Ondansetron HCl 4 mg 02/12/18 19:21 Zofran Injection IVPUSH Q6H PRN NAUSEA Imaging CXR - No acute chest pathology. No significant change. CT abd/pelvis w/o contrast - A high-grade distal small bowel obstruction is noted. There is equivocal visualization of a [id number] soft tissue polypoid lesion within the right paramedian aspect of the midabdomen ventrally versus representing artifactual focal thickening due to a collapsed bowel loop. 0.3cm nonobstructing left renal calculus. ASSESSMENT/PLAN: Patient is a 62 year old female with no past medical history presented with intermittent abdominal pain for 1 week accompanied by NBNB vomiting and watery diary of 1 day. #Small bowel obstruction: POD6 s/p small bowel resection -patient has no history of any abdominal surgery. -No Family history of CA. Last colonoscopy 12 years ago. As per pt, it was normal. -Intermittent abdominal pain, especially on incision site. -No bowel movement yet, passed gas. -Dr. Razo consulted. Recommendations appreciated. -Post-op findings: Small bowel mass in distal SB, around proximal to mid-ileum; dilated proximally, collapsed distally; resected 2cm -Pathology report: Neuroendocrine tumor (carcinoid) with lymphatic invasion. -Will consult Dr. Bajwa after speaking to and patient. -Diet advanced to clear diet. Will monitor. -IVF - D5-1/2NS @83ml/hr -IV Tylenol and Ibuprofen alternating for breakthrough pain. -Encouraged OOB/ambulation to bathroom PRN -Intake and urine output monitored #FEN -IV D5-1/2NS at 83ml/hr -electrolytes wnl, routine bmp monitoring -NPO for now #PPx -Heparin 5000units sq tid #Disposition -POD 6 Visit type - Emergency Visit Emergency Visit: Yes ED Registration Date: 02/11/18 Care time: The patient presented to the Emergency Department on the above date and was hospitalized for further evaluation of their emergent condition. - New Patient This patient is new to me today: Yes Date on this admission: 02/18/18 - Critical Care Critical Care patient: No
[2018-02-18] MEDS: IBUPROFEN 600 MG TABLET (FP) PO SCH (17:38)
[2018-02-18] MEDS: DOCUSATE SODIUM 100 MG CAPSULE (FP) PO SCH (21:45)
[2018-02-19] MEDS: IBUPROFEN 600 MG TABLET (FP) PO SCH ×4 (00:48→18:12)
[2018-02-19] MEDS: ACETAMINOPHEN 325 MG TABLET (FP) PO SCH ×4 (04:15→21:43)
[2018-02-19] MEDS: HEPARIN NA (PORCINE) 5,000 UNITS/ML 1ML VIAL SQ SCH ×3 (06:10→21:44)
[2018-02-19 06:47] LABS: BASO % 0.9 % (0-2.0); EOS % 4.2 % (0-4.5); HEMATOCRIT 38.8 % (32.4-45.2); HEMOGLOBIN 12.9 GM/dL (10.7-15.3); LYMPH % 13.7 % (8-40); MCH 28.8 pg (25.7-33.7); MCHC 33.3 g/dl (32.0-36.0); MEAN CELL VOLUME 86.4 fl (80-96); MEAN PLT VOLUME 7.7 fl (7.5-11.1); MONO % 8.5 % (3.8-10.2); NEUT % 72.7 % (42.8-82.8); PLATELET COUNT 250 K/MM3 (134-434); RBC 4.49 M/mm3 (3.60-5.2); RDW 13.7 % (11.6-15.6); WHITE BLOOD COUNT 6.8 K/mm3 (4.0-10.0)
--- NOTE | 2018-02-19 07:35 | PN ---
Teaching Attending Note Name of Resident: Darling Rodgers ATTENDING PHYSICIAN STATEMENT I saw and evaluated the patient. I reviewed the resident's note and discussed the case with the resident. I agree with the resident's findings and plan as documented with exceptions below. SUBJECTIVE: Patient seen and examined. Denies any nausea, vomiting. Abdominal pain improved. tolerating diet well. Had BM yesterday. OBJECTIVE: Vital Signs Period Temp Pulse Resp BP Sys/Celeste Pulse Ox Last 24 Hr 97.9 F-98.3 F 66-72 18-20 113-125/75-84 95 Intake & Output 02/16/18 02/17/18 02/18/18 02/19/18 23:59 23:59 23:59 23:59 Intake Total 1991 6302 3192 30 Output Total 50 Balance 1941 249 3192 30 General: sitting in chair in no acute distress Abdomen: soft, positive bowel sounds, mild tenderness around the incision site, ND, improved exam, no voluntary or involuntary guarding or rigidity Active Medications Acetaminophen (Tylenol -) 650 mg PO Q6H [facility] Last Admin: 02/19/18 04:15 Dose: 650 mg Docusate Sodium (Colace -) 100 mg PO BID [facility] Last Admin: 02/18/18 21:45 Dose: 100 mg Heparin Sodium (Porcine) (Heparin -) 5,000 unit SQ TID [facility] Last Admin: 02/19/18 06:10 Dose: 5,000 unit Ibuprofen (Motrin -) 600 mg PO Q6H [facility] Last Admin: 02/19/18 06:10 Dose: 600 mg Ondansetron HCl (Zofran Injection) 4 mg IVPUSH Q6H PRN PRN Reason: NAUSEA Laboratory Results - last 24 hr 02/18/18 02/18/18 02/19/18 06:20 06:20 06:30 WBC 4.9 6.8 RBC 4.65 4.49 Hgb 13.4 12.9 Hct 40.5 38.8 MCV 87.0 86.4 MCH 28.9 28.8 MCHC 33.2 33.3 RDW 13.9 13.7 Plt Count 227 250 MPV 8.7 7.7 D Absolute Neuts (auto) 3.5 4.9 Neutrophils % 71.8 72.7 Lymphocytes % 14.5 13.7 Monocytes % 9.1 8.5 Eosinophils % 3.8 4.2 Basophils % 0.8 0.9 Nucleated RBC % 0 0 Sodium 141 Potassium 3.9 Chloride 106 Carbon Dioxide 28 Anion Gap 7 L BUN 9 Creatinine 0.3 L Creat Clearance w eGFR > 60 Random Glucose 92 Calcium 8.6 Phosphorus 4.5 Magnesium 2.2 Surgical pathology - grade I well differential neuroendocrine tumor (Carcinoid) with subserosal fat and lymphovascular invasion ASSESSMENT AND PLAN: 62yo F with no PMH presented with worsening abdominal pain x1 week with nausea and vomiting and found to have a high grade SBO and Small bowel mass -High grade SBO/Small bowel mass s/p resection/primary anastomosis 02/12 -Grade I well differential neuroendocrine tumor (Carcinoid) with subserosal fat and lymphovascular invasion -Low grade fever post op day 1, resolved Plan: Tolerating clears well, no concerns. ADvance to regular diet. D/c IVF. Pathology reports noted. Oncology consult Dr. Bajwa, follow up recs Anticipate outpatient follow up. IVF. Off dilaudid LOCAL FLATBED DRIVER.tylenol/motrin for pain. Incentive spirometry DVTPPX heparin PT eval. Dispo d/c in 24 hours with outpatient oncology follow up if no new concerns. Plan discussed with patient in detail, all questions answered.
[2018-02-19] MEDS: DOCUSATE SODIUM 100 MG CAPSULE (FP) PO SCH ×2 (09:35→21:44)
--- NOTE | 2018-02-19 09:37 | PATH ---
Surgical Pathology Report Patient Name: BURT LINARES [facility]. Rec. #: [id number] /Age/Gender: 1955 (Age: 62) / F Account: [id number] Location: [address] [place] [address] Taken: 02/12/2018 Received: 02/13/2018 Reported: 02/19/2018 Physicians: Savanna Vaughn M.D. Adrien Kant, M.D. Mark Sandigursky, M.D. Jesse Bajwa M.D. Specimen(s) Received PORTION OF DISTAL SMALL BOWEL Clinical History Small bowel obstruction Final Diagnosis SMALL BOWEL, PROXIMAL ILEUM, RESECTION: NEUROENDOCRINE TUMOR, WELL DIFFERENTIATED, GRADE 1, (CARCINOID). TUMOR MEASURES 1.9 x 1.5 x 1.4 CM (GROSS MEASUREMENT). TUMOR SHOWS ASSOCIATED FIBROSIS AND INVADES INTO SUBSEROSAL FAT. MITOTIC RATE, <2 MITOSES/2MM2. PROLIFERATIVE MARKER, KI-67 IS <3%. LYMPHOVASCULAR INVASION IDENTIFIED. SURGICAL MARGINS ARE NEGATIVE (PROXIMAL AND DISTAL). RARE MESENTERIC DEPOSITS MEASURING 2 MM IN GREATEST DIMENSION PRESENT. NO LYMPH NODES IDENTIFIED. PATHOLOGIC STAGE: pT3 pNx. SEE SUMMARY BELOW. Comment: Histologic sections show bland loosely cohesive tumor cells with focally eccentric cytoplasm, salt and pepper chromatin, and finely granular cytoplasm dispersed as nests, cords and sheets. There is <2 mitoses/mm2 identified. Immunohistochemical stains performed and interpreted at [facility] show the tumor is positive for AE1/3, chromogranin and synaptophysin; focal weak staining with CK20; while negative for CK7 and TTF-1. Additional immunohistochemical stains performed at [place], [place] ([id number]) and interpreted at [facility] show the tumor is negative for CD56. Proliferative marker, Ki-67 is <3%. Overall histomorphology and immunophenotype supports the above diagnosis. Findings discussed with Dr. Razo and Dr. Mcintyre. Comments JEJUNUM AND ILEUM NEUROENDOCRINE TUMOR Procedure _X_ Segmental resection, small intestine Tumor Site _X_ Proximal ileum Tumor Size Greatest dimension (centimeters): _1.9 __ cm + Additional dimensions (centimeters): _1.5__ x _1.4__ cm Tumor Focality _X_ Unifocal Histologic Type and Grade _X_ G1: Well-differentiated neuroendocrine tumor Mitotic Rate _X_ <2 mitoses/2mm2 Ki-67 Labeling Index _X_ <3% Tumor Extension _X_ Tumor invades through the muscularis propria into subserosal tissue without penetration of overlying serosa Margins _X_ All margins are uninvolved by tumor Margins examined: _ proximal and distal_ Lymphovascular Invasion _X_ Present + Perineural Invasion + _X_ Not identified Large Mesenteric Masses _X_ Not identified Regional Lymph Nodes _X_ No lymph nodes submitted or found Primary Tumor (pT) _X_ pT3: Invades through the muscularis propria into subserosal tissue without penetration of overlying serosa Regional Lymph Nodes (pN) _X_ pNX: Regional lymph nodes cannot be assessed + Additional Pathologic Findings + _X_ Mesenteric tumor deposit(s): 2 mm in greatest dimension Electronically Signed Shruthi Leavitt M.D. Gross Description Received in formalin labeled "portion of small bowel and staple line, proximal ileum as per surgeon" is a 7 cm in length portion of small bowel with 2 stapled mucosal margins and minimal attached fat. The serosa is zuleta-michaels and intact with a focal stricture. The dilated end of bowel is proximal and small end is distal, per the surgeon. The mucosa displays a 1.9 x 1.5 x 1.4 cm zuleta-pink mass on the stricture. The mass is 1.2 cm from the distal mucosal margin of resection. The mass extends to the serosa but does not appear to invade through it. The remaining mucosa is pink-zuleta with normal folds. No definite lymph nodes are identified within the surrounding fat. Also received within the same container is a 2.5 cm in diameter annular portion of bowel, consistent with a donut. [employer] sections are submitted in 13 cassettes as follows: 1-proximal mucosal margin; 2-distal mucosal margin; 3-6-mass; 7-proximal mucosa; 8-distal mucosa; 3-95-gdwpnier submitted fat; 13-separately received to donut. 02/13/201802/13/2018
--- NOTE | 2018-02-19 10:45 | CONSULT ---
Consultation: REQUESTING PROVIDER: CONSULT REQUEST: We have been asked to medically evaluate this patient for ( newly diagnosed neuroendocrine tumor). HISTORY OF PRESENT ILLNESS: Patient is a 62 year old female presented to the ED with the chief complaint of severe abdominal pain x1 week prior to admission. As per the patient, she was apparently well then she started having severe abdominal pain, diffusely located , non radiating, associated with nausea. She visited her PCP (Dr. Mcintyre) who sent here to the ED for further evaluatio and treatment. Denies chest pain, sob, cough, palpitation, headache, fever, chills or rigors. Had loose bowel movement a day prior to admission. Bladder habit normal. Sleep normal. Appetite decreased. Last colonoscopy was 12 yrs ago and it was normal. Hasn't f/up since. PAST MEDICAL HISTORY: None reported ALLERGIES: NKDA PAST SURGICAL HISTORY: NONE SOCIAL HISTORY Smoking: Denies Alcohol: Denies Drugs: Denies FAMILY HISTORY: No family history of cancers. OCCUPATION: REVIEW OF SYSTEMS: CONSTITUTIONAL: Absent: fever, chills, diaphoresis, generalized weakness, malaise, loss of appetite, weight change HEENT: Absent: rhinorrhea, nasal congestion, throat pain, throat swelling, difficulty swallowing, mouth swelling, ear pain, eye pain, visual changes CARDIOVASCULAR: Absent: chest pain, syncope, palpitations, irregular heart rate, lightheadedness , peripheral edema RESPIRATORY: Absent: cough, shortness of breath, dyspnea with exertion, orthopnea, wheezing, stridor, hemoptysis GASTROINTESTINAL: Absent: abdominal pain, abdominal distension, nausea, vomiting, diarrhea, constipation, melena, hematochezia GENITOURINARY: Absent: dysuria, frequency, urgency, hesitancy, hematuria, flank pain, genital pain MUSCULOSKELETAL: Absent: myalgia, arthralgia, joint swelling, back pain, neck pain SKIN: Absent: rash, itching, pallor HEMATOLOGIC/IMMUNOLOGIC: Absent: easy bleeding, easy bruising, lymphadenopathy, frequent infections ENDOCRINE: Absent: unexplained weight gain, unexplained weight loss, heat intolerance, cold intolerance NEUROLOGIC: Absent: headache, focal weakness or paresthesias, dizziness, unsteady gait, seizure, mental status changes, bladder or bowel incontinence PSYCHIATRIC: Absent: anxiety, depression, suicidal or homicidal ideation, hallucinations. PHYSICAL EXAMINATION Vital Signs - 24 hr 02/18/18 02/18/18 02/19/18 20:24 23:38 05:00 Temperature 97.9 F 98.3 F Pulse Rate 66 68 Respiratory 18 20 Rate Blood Pressure 123/75 113/84 O2 Sat by Pulse 95 Oximetry (%) GENERAL: Middle aged female, Awake, alert, and fully oriented, in no acute distress. HEAD: Normal with no signs of trauma. EYES: EOM intact, no pallor or icterus. EARS, NOSE, THROAT: Ears normal.. Moist mucous membranes. NECK: Supple. LUNGS: Breath sounds equal, clear to auscultation bilaterally. No wheezes, and no crackles. No accessory muscle use. HEART: Regular rate and rhythm, normal S1 and S2 without murmur, rub or gallop. ABDOMEN: Surgical scar manuel +, praveena +, area looks clean and dry, Soft, nontender, not distended MUSCULOSKELETAL: Normal range of motion at all joints. No bony deformities or tenderness. No CVA tenderness. UPPER EXTREMITIES: 2+ pulses, warm, well-perfused. No cyanosis. No clubbing. Cap refill <2 seconds. No peripheral edema. LOWER EXTREMITIES: 2+ pulses, warm, well-perfused. No calf tenderness. No peripheral edema. NEUROLOGICAL: No facial droop. Normal speech. Normal gait. PSYCHIATRIC: Cooperative. Poor eye contact. Appropriate mood and affect. SKIN: Warm, dry, normal turgor, no rashes or lesions noted. Laboratory Results - last 24 hr 02/19/18 06:30 WBC 6.8 RBC 4.49 Hgb 12.9 Hct 38.8 MCV 86.4 MCH 28.8 MCHC 33.3 RDW 13.7 Plt Count 250 MPV 7.7 D Absolute Neuts (auto) 4.9 Neutrophils % 72.7 Lymphocytes % 13.7 Monocytes % 8.5 Eosinophils % 4.2 Basophils % 0.9 Nucleated RBC % 0 Active Medications Generic Name Dose Route Start Last Admin Trade Name Freq PRN Reason Stop Dose Admin Acetaminophen 650 mg 02/17/18 15:30 02/19/18 09:33 Tylenol - PO 650 mg Q6H [facility]O Administration Docusate Sodium 100 mg 02/18/18 22:00 02/19/18 09:35 Colace - PO 100 mg BID [facility] Administration Heparin Sodium (Porcine) 5,000 unit 02/12/18 22:00 02/19/18 06:10 Heparin - SQ 5,000 unit TID [facility] Administration Ibuprofen 600 mg 02/18/18 18:30 02/19/18 06:10 Motrin - PO 600 mg Q6H [facility] Administration Ondansetron HCl 4 mg 02/12/18 19:21 Zofran Injection IVPUSH Q6H PRN NAUSEA Patient is a 62 year old female with no past medical hx presented to the ED with the chief complaint of severe abdominal pain x1 week prior to admission was found to have SBO ASSESSMENT Small bowel obstruction s/p bowel resection # POD 7 Small bowel mass- suggestive of Neuroendocrine tumor (carcinoid) PLAN: # Grade 1 Carcinoid tumor with lymphovascular invasion 02/12/18 Pathology report: Grade 1 Carcinoid tumor. Size 1.9 x 1.5 x 1.4 cm associated with fibrosis and invades into subserosal fat. Proliferative marker KI-67 < 3 %. Rare mesenteric deposists measuring 2mm greatest dimension present. No lymph nodes identified All work up to be done as outpatient: Chest CT, CT enterography, Chromogranin A, colonoscopy. might need octreotide scan Patient and her has been explained that close f/up with DR. Barlow or DR. Bajwa is recommended, clinic information given to the patient. They verbalized understanding. Primary team notified about the plan. Case discussed with Dr. Barlow. Dispo: We will continue to follow the patient. Thank you for this consultative opportunity. Visit type - Emergency Visit Emergency Visit: Yes ED Registration Date: 02/11/18 Care time: The patient presented to the Emergency Department on the above date and was hospitalized for further evaluation of their emergent condition. - New Patient This patient is new to me today: Yes Date on this admission: 02/19/18 - Critical Care Critical Care patient: No
--- NOTE | 2018-02-19 14:29 | PN ---
Physical Exam: SUBJECTIVE: Patient seen and examined at bedside this morning. She has bowel movement yesterday and today. She was started on regular diet and she tolerated it well. OBJECTIVE: Vital Signs Period Temp Pulse Resp BP Sys/Celeste Pulse Ox Last 24 Hr 97.8 F-98.5 F 66-98 18-20 113-145/69-84 95-95 GENERAL: The patient is awake, alert, and fully oriented, in no acute distress. HEAD: Normal with no signs of trauma. NECK: Trachea midline, full range of motion, supple. LUNGS: Breath sounds equal, clear to auscultation bilaterally. HEART: Regular rate and rhythm, S1, S2 without murmur, rub or gallop. ABDOMEN: Soft, nontender, nondistended, normoactive bowel sounds. EXTREMITIES: 2+ pulses, warm, well-perfused, no edema. NEUROLOGICAL: Cranial nerves II through XII grossly intact. Normal speech, gait not observed. PSYCH: Normal mood, normal affect. SKIN: Warm, dry, normal turgor, no rashes or lesions noted Laboratory Results - last 24 hr 02/19/18 06:30 WBC 6.8 RBC 4.49 Hgb 12.9 Hct 38.8 MCV 86.4 MCH 28.8 MCHC 33.3 RDW 13.7 Plt Count 250 MPV 7.7 D Absolute Neuts (auto) 4.9 Neutrophils % 72.7 Lymphocytes % 13.7 Monocytes % 8.5 Eosinophils % 4.2 Basophils % 0.9 Nucleated RBC % 0 Active Medications Generic Name Dose Route Start Last Admin Trade Name Freq PRN Reason Stop Dose Admin Acetaminophen 650 mg 02/17/18 15:30 02/19/18 09:33 Tylenol - PO 650 mg Q6H LEO Administration Docusate Sodium 100 mg 02/18/18 22:00 02/19/18 09:35 Colace - PO 100 mg BID LEO Administration Heparin Sodium (Porcine) 5,000 unit 02/12/18 22:00 02/19/18 13:57 Heparin - SQ 5,000 unit TID LEO Administration Ibuprofen 600 mg 02/18/18 18:30 02/19/18 12:14 Motrin - PO 600 mg Q6H [facility]O Administration Ondansetron HCl 4 mg 02/12/18 19:21 Zofran Injection IVPUSH Q6H PRN NAUSEA Imaging CXR - No acute chest pathology. No significant change. CT abd/pelvis w/o contrast - A high-grade distal small bowel obstruction is noted. There is equivocal visualization of a [id number] soft tissue polypoid lesion within the right paramedian aspect of the midabdomen ventrally versus representing artifactual focal thickening due to a collapsed bowel loop. 0.3cm nonobstructing left renal calculus. ASSESSMENT/PLAN: Patient is a 62 year old female with no past medical history presented with intermittent abdominal pain for 1 week accompanied by NBNB vomiting and watery diary of 1 day. #Small bowel obstruction: POD7 s/p small bowel resection -patient has no history of any abdominal surgery. -No Family history of CA. Last colonoscopy 12 years ago. As per pt, it was normal. -Intermittent abdominal pain, especially on incision site. -No bowel movement yet, passed gas. -Dr. Razo consulted. Recommendations appreciated. -Post-op findings: Small bowel mass in distal SB, around proximal to mid-ileum; dilated proximally, collapsed distally; resected 2cm -Pathology report: Neuroendocrine tumor (carcinoid) with lymphatic invasion. -Mack-Onc consulted. -Regular diet. -IV Tylenol and Ibuprofen alternating for breakthrough pain. -Encouraged OOB/ambulation to bathroom PRN -Intake and urine output monitored #FEN -Not on any standing fluids -Encourage increased oral fluid intake -electrolytes wnl -Regular diet #PPx -Heparin 5000units sq tid #Disposition -POD 7 Visit type - Emergency Visit Emergency Visit: Yes ED Registration Date: 02/11/18 Care time: The patient presented to the Emergency Department on the above date and was hospitalized for further evaluation of their emergent condition. - New Patient This patient is new to me today: Yes Date on this admission: 02/19/18 - Critical Care Critical Care patient: No
--- NOTE | 2018-02-19 16:20 | PN ---
Progress Note, Physician History of Present Illness: Pt s/p SB resection for mass causing obstruction, pathology shows well- differentiated, grade 1 neuroendocrine tumor. Oncology is to see the patient today. No fever or nausea. Tolerating diet, having soft BMs, ambulating in halls. - Current Medication List Current Medications: Active Medications Acetaminophen (Tylenol -) 650 mg PO Q6H [facility] Last Admin: 02/19/18 15:47 Dose: 650 mg Docusate Sodium (Colace -) 100 mg PO BID [facility] Last Admin: 02/19/18 09:35 Dose: 100 mg Heparin Sodium (Porcine) (Heparin -) 5,000 unit SQ TID [facility] Last Admin: 02/19/18 13:57 Dose: 5,000 unit Ibuprofen (Motrin -) 600 mg PO Q6H [facility] Last Admin: 02/19/18 12:14 Dose: 600 mg Ondansetron HCl (Zofran Injection) 4 mg IVPUSH Q6H PRN PRN Reason: NAUSEA - Objective Vital Signs: Vital Signs Temperature 98.5 F 02/19/18 14:03 Pulse Rate 96 H 02/19/18 14:03 Respiratory Rate 20 02/18/18 23:38 Blood Pressure 145/82 02/19/18 14:03 O2 Sat by Pulse Oximetry (%) 95 02/19/18 09:00 Constitutional: Yes: Well Nourished, No Distress, Calm Eyes: Yes: Conjunctiva Clear, EOM Intact HENT: Yes: Atraumatic, Normocephalic Gastrointestinal: Yes: Soft, Distention (minimal), Tenderness (minimal incisional) Extremities: Yes: Deformity (rheumatoid hand joint deformities). No: Cool, Cyanosis Integumentary: Yes: Incision (midline w/praveena). No: Rash Wound/Incision: Yes: Clean/Dry, Well Approximated, Praveena Intact, Open to air Neurological: Yes: Alert, Oriented Labs: CBC 02/19/18 06:30 Problem List - Problems (1) Malignant carcinoid tumor of ileum Assessment/Plan: POD7 s/p small bowel resection for mass causing obstruction pathology: tumor is well-differentiated, grade 1 neuroendocrine (carcinoid) with lymphovascular invasion, to but not through serosa, with no nodes in specimen will need staging and oncology - Dr. Bajwa/Yen to see prior to discharge and speak with and pt pain managed well with tylenol po and ibuprofen prn continue OOB/ambulation/IS tolerating diet with bowel function DVT prophylaxis ok for d/c home tomorrow to call once home for f/u surgical appt for staple removal next week instructions in d/c plan discussed with primary team resident Dr. Malone Code(s): C7A.012 - MALIGNANT CARCINOID TUMOR OF THE ILEUM (2) S/P small bowel resection Code(s): Z90.49 - ACQUIRED ABSENCE OF OTHER SPECIFIED PARTS OF DIGESTIVE TRACT (3) Mental retardation Code(s): F79 - UNSPECIFIED INTELLECTUAL DISABILITIES
--- NOTE | 2018-02-19 22:20 | PN ---
Teaching Attending Note Name of Resident: Janet Jimenez ATTENDING PHYSICIAN STATEMENT I saw and evaluated the patient. I reviewed the resident's note and discussed the case with the resident. I agree with the resident's findings and plan as documented. Patient is a 62 year old female with no past medical hx presented to the ED with the chief complaint of severe abdominal pain x1 week prior to admission was found to have high grade obstruction ASSESSMENT Small bowel obstruction s/p bowel resection # POD 7 Pathology c/w low grade Neuroendocrine tumor (carcinoid)--pT3, Nx, Mx + LVI, negative margins, low Ki67 Rare mesenteric deposists measuring 2mm greatest dimension present. Need staging work up, as out patient, --octreotide scan or NET spot scan ( with gallim [address]), CT chest, serm chromogranin levels/5HIAA levles will need to come up with treatmetn plan based on above w/u Contac info given for otpatient follow p
[2018-02-20] MEDS: IBUPROFEN 600 MG TABLET (FP) PO SCH ×4 (00:31→17:39)
[2018-02-20] MEDS: ACETAMINOPHEN 325 MG TABLET (FP) PO SCH ×3 (03:38→14:41)
[2018-02-20] MEDS: HEPARIN NA (PORCINE) 5,000 UNITS/ML 1ML VIAL SQ SCH ×2 (06:09→13:30)
[2018-02-20] MEDS: DOCUSATE SODIUM 100 MG CAPSULE (FP) PO SCH (09:23)
--- NOTE | 2018-02-20 11:06 | PN ---
Progress Note (short form) - Note Progress Note: Patient seen and examined Some abdominal discomfort Last Vital Signs Temp Pulse Resp BP Pulse Ox 98.4 F 76 20 144/81 97 02/20/18 08:49 02/20/18 08:49 02/20/18 08:49 02/20/18 08:49 02/20/18 09:00 Cor: RSR, No murmurs, No gallops Lungs: Clear to P&A Abd: Soft, Normal bowel sounds, No organomegaly,praveena Ext:No significant edema Skin: No rashes, Integument intact CBC, BMP 02/19/18 06:30 02/18/18 06:20 Current Medications Generic Name Dose Route Start Last Admin Trade Name Freq PRN Reason Stop Dose Admin Acetaminophen 650 mg 02/17/18 15:30 02/20/18 09:23 Tylenol - PO 650 mg Q6H LEO Administration Docusate Sodium 100 mg 02/18/18 22:00 02/20/18 09:23 Colace - PO 100 mg BID LEO Administration Heparin Sodium (Porcine) 5,000 unit 02/12/18 22:00 02/20/18 06:09 Heparin - SQ 5,000 unit TID [facility] Administration Ibuprofen 600 mg 02/18/18 18:30 02/20/18 06:08 Motrin - PO 600 mg Q6H [facility] Administration Ondansetron HCl 4 mg 02/12/18 19:21 Zofran Injection IVPUSH Q6H PRN NAUSEA Low grade neuroendocrine tumor - for out patient work up.
--- NOTE | 2018-02-20 12:40 | PN ---
Teaching Attending Note Name of Resident: Darling Rodgers ATTENDING PHYSICIAN STATEMENT I saw and evaluated the patient. I reviewed the resident's note and discussed the case with the resident. I agree with the resident's findings and plan as documented with exceptions below. SUBJECTIVE: Patient seen and examined, no pain or symptoms. Tolerating diet well. no new concerns. OBJECTIVE: Vital Signs Period Temp Pulse Resp BP Sys/Celeste Pulse Ox Last 24 Hr 97.6 F-98.5 F 73-96 20-20 120-145/65-82 95-97 Intake & Output 02/17/18 02/18/18 02/19/18 02/20/18 23:59 23:59 23:59 23:59 Intake Total 2492 3192 1380 450 Balance 2492 3192 1380 450 General: sitting in chair in no acute distress Abdomen:soft, NT on exam throughout currently, positive bowel sounds, improved distension Home Medications Medication Instructions Recorded Acetaminophen [Pain Reliever] 500 mg PO Q6H PRN #15 tablet 02/20/18 Ibuprofen [Motrin Ib] 200 mg PO Q6H PRN #10 tablet 02/20/18 Active Medications Acetaminophen (Tylenol -) 650 mg PO Q6H [facility] Last Admin: 02/20/18 09:23 Dose: 650 mg Docusate Sodium (Colace -) 100 mg PO BID [facility] Last Admin: 02/20/18 09:23 Dose: 100 mg Heparin Sodium (Porcine) (Heparin -) 5,000 unit SQ TID [facility] Last Admin: 02/20/18 06:09 Dose: 5,000 unit Ibuprofen (Motrin -) 600 mg PO Q6H [facility] Last Admin: 02/20/18 12:25 Dose: 600 mg Ondansetron HCl (Zofran Injection) 4 mg IVPUSH Q6H PRN PRN Reason: NAUSEA ASSESSMENT AND PLAN: 62yo F with no PMH presented with worsening abdominal pain x1 week with nausea and vomiting and found to have a high grade SBO and Small bowel mass -High grade SBO/Small bowel mass s/p resection/primary anastomosis 02/12 -Grade I well differential neuroendocrine tumor (Carcinoid) with subserosal fat and lymphovascular invasion -Low grade fever post op day 1, resolved Plan: Tolerating diet well. No concerns. Oncology input noted, outpatient follow up. Tylenol/Motrin prn Outpatient surgery follow up for suture removal. Incentive spirometry d/c home today with outpatient surgery and oncology follow up. Plan discussed with patient and all questions answered.
[2018-02-20 14:43] VITALS: BP 111/72; PULSE 92; TEMP 97.6
--- NOTE | 2018-02-20 15:14 | DS ---
Physical Exam: SUBJECTIVE: Patient seen and examined at bedside this morning. Patient is POD 8. She has no active complaints. No acute events overnight. She can tolerate regular food and has bowel movement. OBJECTIVE: Vital Signs Period Temp Pulse Resp BP Sys/Celeste Pulse Ox Last 24 Hr 97.6 F-98.4 F 73-92 20-20 111-144/65-81 95-97 PHYSICAL EXAM GENERAL: The patient is awake, alert, and fully oriented, in no acute distress. HEAD: Normal with no signs of trauma. EYES: PERRL, extraocular movements intact, sclera anicteric, conjunctiva clear. ENT: Ears normal, nares patent, oropharynx clear without exudates, moist mucous membranes. NECK: Trachea midline, full range of motion, supple. LUNGS: Breath sounds equal, clear to auscultation bilaterally, no wheezes, no crackles, no accessory muscle use. HEART: Regular rate and rhythm, S1, S2 without murmur, rub or gallop. ABDOMEN: Soft, mild tenderness to palpation around surgical site, nondistended, normoactive bowel sounds. EXTREMITIES: 2+ pulses, warm, well-perfused, no edema. NEUROLOGICAL: Cranial nerves II through XII grossly intact. Normal speech, gait not observed. SKIN: Warm, dry, normal turgor, no rashes or lesions noted. LABS CBC,CMP WBC 6.8 K/mm3 (4.0-10.0) 02/19/18 06:30 RBC 4.49 M/mm3 (3.60-5.2) 02/19/18 06:30 Hgb 12.9 GM/dL (10.7-15.3) 02/19/18 06:30 Hct 38.8 % (32.4-45.2) 02/19/18 06:30 MCV 86.4 fl (80-96) 02/19/18 06:30 MCH 28.8 pg (25.7-33.7) 02/19/18 06:30 MCHC 33.3 g/dl (32.0-36.0) 02/19/18 06:30 RDW 13.7 % (11.6-15.6) 02/19/18 06:30 Plt Count 250 K/MM3 (134-434) 02/19/18 06:30 MPV 7.7 fl (7.5-11.1) D 02/19/18 06:30 Absolute Neuts (auto) 4.9 K/mm3 (1.5-8.0) 02/19/18 06:30 Neutrophils % 72.7 % (42.8-82.8) 02/19/18 06:30 Lymphocytes % 13.7 % (8-40) 02/19/18 06:30 Monocytes % 8.5 % (3.8-10.2) 02/19/18 06:30 Eosinophils % 4.2 % (0-4.5) 02/19/18 06:30 Basophils % 0.9 % (0-2.0) 02/19/18 06:30 Nucleated RBC % 0 % (0-0) 02/19/18 06:30 Sodium 141 mmol/L (136-145) 02/18/18 06:20 Potassium 3.9 mmol/L (3.5-5.1) 02/18/18 06:20 Chloride 106 mmol/L (98-107) 02/18/18 06:20 Carbon Dioxide 28 mmol/L (21-32) 02/18/18 06:20 Anion Gap 7 MMOL/L (8-16) L 02/18/18 06:20 BUN 9 mg/dL (7-18) 02/18/18 06:20 Creatinine 0.3 mg/dL (0.55-1.02) L 02/18/18 06:20 Creat Clearance w eGFR > 60 (>60) 02/18/18 06:20 Random Glucose 92 mg/dL (74-106) 02/18/18 06:20 Lactic Acid 0.9 mmol/L (0.0-2.0) 02/11/18 19:15 Calcium 8.6 mg/dL (8.5-10.1) 02/18/18 06:20 Phosphorus 4.5 mg/dL (2.5-4.9) 02/18/18 06:20 Magnesium 2.2 mg/dL (1.8-2.4) 02/18/18 06:20 Total Bilirubin 0.6 mg/dL (0.2-1.0) 02/17/18 07:00 AST 9 U/L (15-37) L 02/17/18 07:00 ALT 19 U/L (12-78) 02/17/18 07:00 Alkaline Phosphatase 80 U/L (45-117) 02/17/18 07:00 Total Protein 5.8 g/dl (6.4-8.2) L 02/17/18 07:00 Albumin 2.4 g/dl (3.4-5.0) L 02/17/18 07:00 Lipase 130 U/L (73-393) 02/11/18 18:41 Imaging CXR - No acute chest pathology. No significant change. CT abd/pelvis w/o contrast - A high-grade distal small bowel obstruction is noted. There is equivocal visualization of a [id number] soft tissue polypoid lesion within the right paramedian aspect of the midabdomen ventrally versus representing artifactual focal thickening due to a collapsed bowel loop. 0.3cm nonobstructing left renal calculus. HOSPITAL COURSE: Date of Admission:02/11/18 Date of Discharge: 02/20/18 Patient is a 62 y/o woman with no significant past medical history, presented to the ED with sharp intermittent abdominal pain x 1 week. The patient states that she could not tolerate anything: cold cereal, soup, or toast having episodes of bilious vomiting today. Patient endorses being constipated and was taking medication for it, but could not recall the name. The patient endorsed having a loose watery diarrhea for 1 day. Patient denies fever, cough, dizziness , SOB, CP, hematochezia, melena, hematuria, dysuria. Patient was admitted for small bowel obstruction. Surgery and GI was consulted. Patient was placed on NPO, NGT was placed and IVF given. Patient underwent urgent ex-laparotomy. Post-operatively, she was found to have small bowel mass in distal SB, around proximal to mid-ileum; dilated proximally, collapsed distally; resected 2cm. Patient tolerated procedure well and on POD 5, was noted to have bowel movements. She was put back on regular diet which she tolerated. On POD7, her pathology report showed Neuroendocrine tumor (carcinoid ) with lymphatic invasion. [facility] was consulted and was advised to follow-up as outpatient for further work-up and treatment plan. Patient was discharged stable with instructions to follow up with Surgery for removal of praveena and [facility]. 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 Carlos Eduardo Razo of [facility]. This mass was determined to be a neuroendocrine tumor called a carcinoid tumor. You will need further evaluation and treatment by an oncologist (a cancer doctor), and have been referred to Dr. Jesse Bajwa. Activity: Resume your usual activities gradually, but no heavy exertion or lifting more than 10-15 pounds for 4-6 weeks. You may shower daily, just pat the incision area dry. No bath or swimming until skin incision has fully healed. [place] should not need to be recovered with any dressings, unless you have been told otherwise. Eat lightly at first, but advance to your usual diet as tolerated. Pain: For pain, you may use and alternate Tylenol (acetaminophen) 1-2 pills and/ or ibuprofen 200 mg (1-3 pills) every 6 hours each as needed; this means that you can take one OR the other at 3-hour intervals. Do not take more than 4000 mg of acetaminophen in a day. Take medications as prescribed or indicated on the labeling. Follow-up: Call Dr. Razo's office at [phone] to make your postop appointment (Friday in approximately 2 weeks after surgery as advised). Clinic is held in the [facility] on the first floor of [facility]. Call the office if you have: * increasing pain not responsive to pain medication * fever of 101F or higher * vomiting * unusual or increasing bleeding or drainage from wounds * increasing redness or swelling at wound sites Also, see Dr. Mcintyre within 1-2 weeks, and call Dr. Jesse Bajwa's office ( Oncology) for an appointment next week. Call 911 or go to the ED for any worsening symptoms or any new concerns noted. Referrals: Carlos Eduardo Razo MD [Staff Physician] - 1 Week Yen Mendoza MD [Staff Physician] - 1 Week Prince Mcintyre MD [Primary Care Provider] - 1 Week Disposition: HOME - Home Medications Comprehensive Discharge Medication List: Ambulatory Orders Acetaminophen [Pain Reliever] 500 mg PO Q6H PRN #15 tablet 02/20/18 Ibuprofen [Motrin Ib] 200 mg PO Q6H PRN #10 tablet 02/20/18 This patient is new to me today: Yes Date on this admission: 02/20/18 Emergency Visit: Yes ED Registration Date: 02/11/18 Care time: The patient presented to the Emergency Department on the above date and was hospitalized for further evaluation of their emergent condition. Critical Care patient: No - Discharge Referral Referred to [facility] No
--- NOTE | 2018-03-02 19:59 | OP ---
DATE OF OPERATION: 02/12/2018 PREOPERATIVE DIAGNOSIS: Small bowel obstruction. POSTOPERATIVE DIAGNOSIS: Distal small bowel mass with associated obstruction. OPERATION: Small bowel resection. SURGEON: Carlos Eduardo Razo M.D. REGIONAL WILDLIFE AGENT: Moustapha Yusuf M.D. ANESTHESIA: General endotracheal. ESTIMATED BLOOD LOSS: 20 mL FLUIDS: 2 L of crystalloid URINE OUTPUT: 500 mL DRAINS: NG preexisting palpated and secured and left in place. Valdovinos placed intraoperatively and removed at the end of the case. SPECIMEN: A portion of distal small bowel and staple line to pathology. FINDINGS: Small bowel mass at the distal small bowel approximately proximal ileum with dilation of proximal small bowel loops and collapse of distal small bowel loops. Mass was resected with approximately 2-cm margins. Primary stapled anastomosis performed. There were no other masses identified in the small bowel. Stool pieces were noted throughout collapsed colon, and the NG was palpated in the stomach and secured. DISPOSITION: Stable and extubated to PACU. INDICATION FOR PROCEDURE: The patient is a 52-year-old female with no known past medical and surgical history but evidence of mild mental retardation who presented with approximately one week of generalized abdominal pain, distention and constipation associated with nausea and vomiting. She had received medications from a primary care doctor for constipation helping her have some watery bowel movements, but she has not been eating much, and emergency room had labs showing a normal white count, dehydration, and CT was done showing high-grade distal small bowel obstruction without a clear transition point, but a small area suggestive of a mass versus collapsed bowel loops against the right mid abdominal wall. NG tube was placed and the patient reported feeling somewhat better with no more abdominal pain. She was initially seen in the emergency room with her where she was reluctant to consider surgery immediately, but her lactic came back normal, and she was nontender although distended, thus it was not until this morning that I was able to have a second conversation with her and her regarding surgical options and risks, benefits, and alternatives of exploratory laparotomy, possible bowel resection, possible ostomy, although that was unlikely, were discussed with the patient and her , including but not limited to bleeding, infection, injury to adjacent structures, intestinal leak or injury, intraabdominal abscess, incisional hernia, and need for further procedures. Alternatives inclusive of no surgery with attendant risks of failure, nonoperative therapy, bowel ischemia, perforation, sepsis, or . They both desired to proceed with the operation. Informed consent was signed and cosigned by the patient and her , and she is now brought to the operating room for this procedure. OPERATIVE TECHNIQUE: Patient was brought to the operating room and laid supine on the operating table. Sequential compression devices were applied to bilateral lower extremities, and cefoxitin was given for preoperative antibiotic. After induction intubation by anesthesia, Valdovinos catheter was placed in the patient's bladder which was removed at the end of the case. The nasogastric tube had been originally placed was removed for induction and intubation and replaced by anesthesia, later palpated in the stomach and secured in appropriate position. The patient's abdomen was prepped and draped in sterile fashion and midline incision from somewhat above to somewhat below the umbilicus was made with a scalpel and carried to subcutaneous tissues with electrocautery until the abdominal wall fascia was identified and particularly in the upper portion of the incision. The fascia was carefully incised with electrocautery revealing the preperitoneal fat over most of the upper half of the incision. The preperitoneal fat was gently , and the peritoneum grasped with the tip of small clamp in 2 places and elevated. Metzenbaum scissors were used to enter the peritoneal cavity and once a small opening had been created, a fingertip was inserted to insure protection of the bowels underneath, and the peritoneum was opened along with the remaining fascia over the entire length of the incision top to bottom, taking care to protect the underlying bowel with fingers inside the abdomen. Once the incision had been fully opened, the small bowel was noted to be dilated. A few loops were eviscerated and manual palpation was undertaken to the right side of the anterior abdomen in attempt to feel for the anticipated abnormal area that had been seen on the CAT scan. Indeed an area was palpated that felt mass like. This was delivered into the incision and loaded to the transition point with what appeared to be a small bowel mass and all bowel proximal to that was dilated, all bowel distal to it was decompressed, and just to be sure that there were no other abnormalities, a small bowel was run proximal to the ligament of Treitz and then distal to the terminal ileum and a normal-appearing appendix with no other masses noted. There were no obvious lymph nodes, enlarged or palpated in the mesentery. There were a few areas with tiny, tiny white spots in areas of the mesentery which did not seem to be particularly remarkable because the edge of the liver was noted to appear normal, as was the gallbladder, and at one point when the NG tube was palpated in the stomach, liver was also palpated to be normal. The colon that was well visualized and palpated throughout the case was noted to be decompressed with several areas of hard stool within it but no obvious abnormalities were noted. There is no significant ascites, no peritoneal implants were noted either. They then prepared to perform short resection of the mass with at least 2 cm margins on each side, small window was made adjacent to abdominal wall with the tip of a clamp, and GIA60 was used to transect the distal portio of the bowel; a GIA80 was used to transect the proximal portion of the bowel and the handheld LigaSure impact device was then used to divide the mesentery down a little ways towards the root to complete the resection . The specimen was passed off for pathology specimen, noted to be portion of distal small bowel, then we began to set up to do our anastomosis. Lap pads were placed around the anticipated area of the anastomosis, crotch stitch of 3-0 silk was placed in the anticipated area of the crotch of the anastomosis, and small ulcer made in both the proximal and distal limbs with the Bovie cautery and the distal end, the small jaw of the GIA60 stapler was introduced, and then the proximal portion a large jaw such that it stapled anastomosis of the antimesenteric border to antimesenteric border could be created; once the stapler had been fired it was removed, and Allis clamps used to hold up the open enterotomy. A TIA60 stapler was then used to complete closure of the enterotomy, and the staple line included with the specimen. The staple line itself was noted to have a couple of small spots of oozing but did not bleed excessively. Electrocautery was used for hemostasis throughout the course of the case where necessary and the anastomosis was palpated and noted to be patent and appropriately sized. The mesenteric defect was then closed with a running 3-0 Vicryl suture, and the small bowel was run one last time from ligament of Treitz to terminal ileum. The small bowel was returned to the abdominal cavity, taking care to make sure the mesentery was straight and not twisted. The abdomen was irrigated and suctioned clear of fluid, primarily along the right side of the abdomen but also in the other quadrants, and the omentum was drawn down over the bowels. Prior to closure, the fascial closure was accomplished with 2 number 1 looped PDS sutures starting at the top and the bottom, meeting in the middle. The sutures were done in running fashion. Once the knot had been tied, it was tacked down with a 3-0 Vicryl stitch. Wound was reirrigated gently and skin was closed with praveena. Dressing of gauze and Tegaderm was placed over the length of the incision, and again Valdovinos catheter was removed from the patient's bladder prior to her awakening. Counts were correct at the end of the procedure. The patient was then awakened and extubated by anesthesia. She was moved onto a stretcher and taken to the recovery room in stable condition, having tolerated the procedure well. Dr. Yusuf was an essential assistant press operator offset throughout the procedure beginning with entry into the abdominal cavity, assistance with running the small bowel and performing both the resection and anastomosis of the small bowel, as well as closure of the abdominal cavity and the skin. Carlos Eduardo Razo M.D. [id number]
== END 2018-02-20 18:06 | disposition home or self-care (01) | DRG 348 ==
LOC: JER 13:53 → JERBED 19:12 → J6S 21:44
PROVIDERS: ADMIT Internal Medicine; ATTEND Hospitalist
PROC: 0DBB4ZZ Excision of Ileum, Percutaneous Endoscopic Approach (ICD-10-PCS; principal; 2018-02-12 16:00)
DX: C7A.012 Malignant carcinoid tumor of the ileum (principal); K56.699 Other intestinal obstruction unspecified as to partial versus complete obstruction; E86.0 Dehydration; F70 Mild intellectual disabilities; R51 Headache; N20.0 Calculus of kidney
CPT/HCPCS: 36415; 71045-TC-FY; 71046-TC-FY; 74176-TC; 80048; 80053; 81003; 81015; 83605; 83690; 83735; 84100; 85025; 85027; 85610; 85730; 86850; 86900; 86901; 87086; 88309-TC; 88341-TC; 93005; 93010; 94760; 97116-GP; 97161-GP; 99285-25; J0131; J1644; J7030

== ENCOUNTER 2018-05-13 07:42 | Day surgery (SDC) | payer OTHER ==
[2018-05-13 10:31] LABS: BASO % 0.7 % (0-2.0); EOS % 1.6 % (0-4.5); HEMATOCRIT 41.4 % (32.4-45.2); HEMOGLOBIN 14.4 GM/dL (10.7-15.3); LYMPH % 19.2 % (8-40); MCHC 34.7 g/dl (32.0-36.0); MEAN CELL VOLUME 86.6 fl (80-96); MEAN PLT VOLUME 8.7 fl (7.5-11.1); MONO % 5.9 % (3.8-10.2); NEUT % 72.6 % (42.8-82.8); PLATELET COUNT 284 K/MM3 (134-434); RBC 4.78 M/mm3 (3.60-5.2); RDW 13.7 % (11.6-15.6); WHITE BLOOD COUNT 5.7 K/mm3 (4.0-10.0)
[2018-05-13 11:26] LABS: ALBUMIN 3.5 g/dl (3.4-5.0); ALK PHOS 144 U/L (45-117); ANION GAP 6 MMOL/L (8-16); BILIRUBIN,DIRECT 0.1 mg/dL (0.0-0.2); BILIRUBIN,TOTAL 0.4 mg/dL (0.2-1); BLOOD UREA NITROGEN 19 mg/dL (7-18); CALCIUM 8.9 mg/dL (8.5-10.1); CHLORIDE 106 mmol/L (98-107); CO2 27 mmol/L (21-32); CREATININE 0.6 mg/dL (0.55-1.3); GLUCOSE,RANDOM 118 mg/dL (74-106); MAGNESIUM 2.3 mg/dL (1.8-2.4); POTASSIUM 4.3 mmol/L (3.5-5.1); SGOT/AST 21 U/L (15-37); SGPT/ALT 28 U/L (13-61); SODIUM 139 mmol/L (136-145); TOT PROT 7.4 g/dl (6.4-8.2)
[2018-05-13] MEDS ORDERED: [UNRECOGNIZED DRUG - OTHER] IM ONE (12:00)
[2018-05-13 17:01] VITALS: BP 115/67; PULSE 78; TEMP 97.3
== END 2018-05-13 12:30 | disposition home or self-care (01) ==
LOC: JONCCHEMO 07:42 → J7W 11:39 → JONCCHEMO 12:30
PROVIDERS: ATTEND Internal Medicine Hematology & Oncology
PROC: 3E013GC Introduction of Other Therapeutic Substance into Subcutaneous Tissue, Percutaneous Approach (ICD-10-PCS; principal; 2018-05-13)
DX: D3A.012 Benign carcinoid tumor of the ileum (principal); Z76.89 Persons encountering health services in other specified circumstances
CPT/HCPCS: 36415; 80053; 80076; 83735; 85025; 96372; 96401; J2353

== ENCOUNTER 2018-07-06 09:08 | Day surgery (SDC) | payer OTHER ==
[2018-07-06] MEDS ORDERED: OCTREOTIDE ACETATE,MI-SPHERES (SANDOSTATIN LAR) 30 MG VIAL IM ONE (12:00)
[2018-07-06 14:49] VITALS: BP 121/74; PULSE 76; TEMP 97.5
== END 2018-07-06 11:30 | disposition home or self-care (01) ==
LOC: JONCCHEMO 09:08 → J7W 10:51 → JONCCHEMO 11:30
PROVIDERS: ATTEND Internal Medicine Hematology & Oncology
PROC: 3E013GC Introduction of Other Therapeutic Substance into Subcutaneous Tissue, Percutaneous Approach (ICD-10-PCS; principal; 2018-07-06)
DX: D3A.012 Benign carcinoid tumor of the ileum (principal); Z76.89 Persons encountering health services in other specified circumstances
CPT/HCPCS: 96401; J2353

== ENCOUNTER 2018-08-03 09:37 | Day surgery (SDC) | payer OTHER ==
[2018-08-03] MEDS ORDERED: OCTREOTIDE ACETATE,MI-SPHERES (SANDOSTATIN LAR) 30 MG VIAL IM ONE (10:00)
[2018-08-03 15:31] VITALS: PULSE 78
[2018-08-03 15:58] LABS: BASO % 1.2 % (0-2.0); EOS % 1.3 % (0-4.5); HEMATOCRIT 43.2 % (32.4-45.2); LYMPH % 29.1 % (8-40); MCH 30.3 pg (25.7-33.7); MCHC 34.7 g/dl (32.0-36.0); MEAN CELL VOLUME 87.5 fl (80-96); MEAN PLT VOLUME 9.1 fl (7.5-11.1); MONO % 8.2 % (3.8-10.2); NEUT % 60.2 % (42.8-82.8); PLATELET COUNT 212 K/MM3 (134-434); RBC 4.94 M/mm3 (3.60-5.2); RDW 14.1 % (11.6-15.6); WHITE BLOOD COUNT 5.7 K/mm3 (4.0-10.0)
[2018-08-03 16:24] LABS: ALBUMIN 4.2 g/dl (3.4-5.0); ALK PHOS 146 U/L (45-117); ANION GAP 9 MMOL/L (8-16); BILIRUBIN,TOTAL 0.7 mg/dL (0.2-1); BLOOD UREA NITROGEN 18 mg/dL (7-18); CALCIUM 10.5 mg/dL (8.5-10.1); CHLORIDE 105 mmol/L (98-107); CO2 27 mmol/L (21-32); CREATININE 0.6 mg/dL (0.55-1.3); GLUCOSE,RANDOM 81 mg/dL (74-106); POTASSIUM 4.1 mmol/L (3.5-5.1); SGOT/AST 24 U/L (15-37); SGPT/ALT 40 U/L (13-61); SODIUM 141 mmol/L (136-145)
[2018-08-03 16:37] VITALS: BP 117/76; TEMP 97.4
[2018-08-03 16:53] LABS: BILIRUBIN,DIRECT 0.2 mg/dL (0.0-0.2); BILIRUBIN,TOTAL 0.7 mg/dL (0.2-1); MAGNESIUM 2.4 mg/dL (1.8-2.4); TOT PROT 7.8 g/dl (6.4-8.2)
== END 2018-08-03 16:40 | disposition home or self-care (01) ==
LOC: JONCCHEMO 09:37 → J7W 16:12 → JONCCHEMO 16:40
PROVIDERS: ATTEND Internal Medicine Hematology & Oncology
PROC: 3E013GC Introduction of Other Therapeutic Substance into Subcutaneous Tissue, Percutaneous Approach (ICD-10-PCS; principal; 2018-08-03)
DX: D3A.012 Benign carcinoid tumor of the ileum (principal)
CPT/HCPCS: 36415; 80053; 80076; 83497; 83735; 85025; 96372; 96401; J2353

== ENCOUNTER 2018-09-04 07:30 | Day surgery (SDC) | payer OTHER ==
[2018-09-04] MEDS ORDERED: OCTREOTIDE ACETATE,MI-SPHERES (SANDOSTATIN LAR) 30 MG VIAL IM ONE (10:00)
[2018-09-04 10:57] LABS: BASO % 0.8 % (0-2.0); EOS % 0.8 % (0-4.5); HEMATOCRIT 43.9 % (32.4-45.2); HEMOGLOBIN 14.5 GM/dL (10.7-15.3); LYMPH % 22.5 % (8-40); MCH 29.2 pg (25.7-33.7); MCHC 33.1 g/dl (32.0-36.0); MEAN CELL VOLUME 88.3 fl (80-96); MEAN PLT VOLUME 9.5 fl (7.5-11.1); MONO % 7.1 % (3.8-10.2); NEUT % 68.8 % (42.8-82.8); PLATELET COUNT 182 K/MM3 (134-434); RBC 4.96 M/mm3 (3.60-5.2); RDW 14.3 % (11.6-15.6); WHITE BLOOD COUNT 5.4 K/mm3 (4.0-10.0)
[2018-09-04 11:23] LABS: ALBUMIN 3.6 g/dl (3.4-5.0); ALBUMIN 3.7 g/dl (3.4-5.0); ALK PHOS 127 U/L (45-117); ANION GAP 6 MMOL/L (8-16); BILIRUBIN,DIRECT 0.2 mg/dL (0.0-0.2); BILIRUBIN,TOTAL 0.7 mg/dL (0.2-1); BLOOD UREA NITROGEN 18 mg/dL (7-18); CALCIUM 8.7 mg/dL (8.5-10.1); CHLORIDE 110 mmol/L (98-107); CO2 25 mmol/L (21-32); CREATININE 0.5 mg/dL (0.55-1.3); GLUCOSE,RANDOM 119 mg/dL (74-106); MAGNESIUM 2.1 mg/dL (1.8-2.4); POTASSIUM 3.8 mmol/L (3.5-5.1); SGOT/AST 16 U/L (15-37); SGPT/ALT 33 U/L (13-61); SODIUM 140 mmol/L (136-145); TOT PROT 7.3 g/dl (6.4-8.2)
[2018-09-04 15:08] VITALS: BP 123/74; PULSE 74; TEMP 98
== END 2018-09-04 12:10 | disposition home or self-care (01) ==
LOC: JONCCHEMO 07:30 → J7W 11:39 → JONCCHEMO 12:10
PROVIDERS: ATTEND Internal Medicine Hematology & Oncology
PROC: 3E013GC Introduction of Other Therapeutic Substance into Subcutaneous Tissue, Percutaneous Approach (ICD-10-PCS; principal; 2018-09-04)
DX: D3A.012 Benign carcinoid tumor of the ileum (principal); Z76.89 Persons encountering health services in other specified circumstances
CPT/HCPCS: 36415; 80053; 80076; 83735; 85025; 96401; J2353

== ENCOUNTER 2018-10-02 07:37 | Day surgery (SDC) | payer OTHER ==
[2018-10-02] MEDS ORDERED: OCTREOTIDE ACETATE,MI-SPHERES (SANDOSTATIN LAR) 30 MG VIAL IM ONE (09:00)
[2018-10-02 16:16] VITALS: BP 125/69; PULSE 78; TEMP 97.9
[2018-10-02 17:41] LABS: BASO % 0.6 % (0-2.0); EOS % 1.2 % (0-4.5); HEMATOCRIT 44.5 % (32.4-45.2); HEMOGLOBIN 14.8 GM/dL (10.7-15.3); LYMPH % 24.6 % (8-40); MCH 29.6 pg (25.7-33.7); MCHC 33.2 g/dl (32.0-36.0); MEAN CELL VOLUME 89.3 fl (80-96); MEAN PLT VOLUME 10.1 fl (7.5-11.1); MONO % 8.6 % (3.8-10.2); PLATELET COUNT 203 K/MM3 (134-434); RBC 4.99 M/mm3 (3.60-5.2); RDW 14.3 % (11.6-15.6); WHITE BLOOD COUNT 5.7 K/mm3 (4.0-10.0)
[2018-10-02 18:35] LABS: ALBUMIN 4.1 g/dl (3.4-5.0); ALK PHOS 145 U/L (45-117); ANION GAP 7 MMOL/L (8-16); BILIRUBIN,DIRECT 0.1 mg/dL (0.0-0.2); BILIRUBIN,TOTAL 0.5 mg/dL (0.2-1); BLOOD UREA NITROGEN 28 mg/dL (7-18); CALCIUM 9.2 mg/dL (8.5-10.1); CHLORIDE 109 mmol/L (98-107); CO2 28 mmol/L (21-32); CREATININE 0.6 mg/dL (0.55-1.3); GLUCOSE,RANDOM 93 mg/dL (74-106); POTASSIUM 4.4 mmol/L (3.5-5.1); SGOT/AST 19 U/L (15-37); SGPT/ALT 32 U/L (13-61); SODIUM 143 mmol/L (136-145); TOT PROT 7.9 g/dl (6.4-8.2)
[2018-10-04 06:36] LABS: SERUM IRON SATURATION 24 % (15-55); TOTAL IRON BINDING CAPACITY 311 ug/dL (250-450); UIBC 235 ug/dL (118-369)
== END 2018-10-02 16:19 | disposition home or self-care (01) ==
LOC: JONCCHEMO 07:37 → J7W 16:05 → JONCCHEMO 16:19
PROVIDERS: ATTEND Internal Medicine Hematology & Oncology
PROC: 3E013GC Introduction of Other Therapeutic Substance into Subcutaneous Tissue, Percutaneous Approach (ICD-10-PCS; principal; 2018-10-02)
DX: D3A.012 Benign carcinoid tumor of the ileum (principal)
CPT/HCPCS: 36415; 80048; 80076; 82607; 82728; 83540; 83550; 85025; 86316; 96372; J2353

== ENCOUNTER 2018-10-27 09:32 | Day surgery (SDC) | payer OTHER ==
[2018-10-26 15:47] VITALS: BMI 23.3
[2018-10-27 11:57] VITALS: TEMP 97.6
[2018-10-27 13:05] VITALS: BP 104/56; PULSE 52
--- NOTE | 2018-10-28 17:53 | PATH ---
Surgical Pathology Report Patient Name: BURT LINARES [facility]. Rec. #: [id number] /Age/Gender: 1955 (Age: 63) / F Account: [id number] Location: ASU-ENDOSCOPY Taken: 10/27/2018 Received: 10/27/2018 Reported: 10/28/2018 Physicians: Mekhi Key D.O. Specimen(s) Received A: PROXIMAL TRANSVERSE COLON POLYP B: RIGHT COLON POLYP C: SIGMOID COLON POLYP Clinical History History of ileocecal carcinoid tumor Postoperative diagnosis: Polyps Final Diagnosis A. PROXIMAL TRANSVERSE COLON, POLYP, POLYPECTOMY: TUBULOVILLOUS ADENOMA. B. COLON, RIGHT, POLYP, BIOPSY: HYPERPLASTIC POLYP. C. SIGMOID COLON, POLYP, POLYPECTOMY: HYPERPLASTIC POLYP. Electronically Signed Shruthi Leavitt M.D. Gross Description A. Received in formalin, labeled "proximal transverse colon polyp" are 3 zuleta, irregular portions of soft tissue measuring 0.1 cm. in greatest dimension. The specimens are submitted in toto in one cassette. B. Received in formalin, labeled "right colon polyp" are 3 zuleta, irregular portions of soft tissue measuring 0.1-0.2 cm. in greatest dimension. The specimens are submitted in toto in one cassette. C. Received in formalin, labeled "sigmoid colon polyp" is a zuleta, irregular portion of soft tissue measuring 0.3 cm. in greatest dimension. The specimen is submitted in toto in one cassette. MLSZ/10/27/2018 sanml/10/27/2018
== END 2018-10-27 13:05 | disposition home or self-care (01) ==
LOC: JASU-ENDO 09:32
PROVIDERS: ATTEND Internal Medicine Gastroenterology
PROC: 0DBL8ZX Excision of Transverse Colon, Via Natural or Artificial Opening Endoscopic, Diagnostic (ICD-10-PCS; 2018-10-27)
PROC: 0DBN8ZX Excision of Sigmoid Colon, Via Natural or Artificial Opening Endoscopic, Diagnostic (ICD-10-PCS; 2018-10-27)
PROC: 0DBK8ZX Excision of Ascending Colon, Via Natural or Artificial Opening Endoscopic, Diagnostic (ICD-10-PCS; principal; 2018-10-27 11:15)
DX: Z12.11 Encounter for screening for malignant neoplasm of colon (principal); D12.3 Benign neoplasm of transverse colon; K63.5 Polyp of colon; K64.8 Other hemorrhoids
CPT/HCPCS: 88305-TC

== ENCOUNTER 2018-10-30 07:10 | Day surgery (SDC) | payer OTHER | END 2018-10-30 16:34 | disposition home or self-care (01) | LOC: JONCCHEMO 07:10 → J7W 15:56 → JONCCHEMO 16:34 ==

== ENCOUNTER 2018-11-27 06:51 | Day surgery (SDC) | payer OTHER ==
[2018-11-27] MEDS ORDERED: OCTREOTIDE ACETATE,MI-SPHERES (SANDOSTATIN LAR) 30 MG VIAL IM ONE (10:00)
[2018-11-27 12:42] LABS: BASO % 0.7 % (0-2.0); EOS % 1.4 % (0-4.5); HEMATOCRIT 43.2 % (32.4-45.2); HEMOGLOBIN 14.3 GM/dL (10.7-15.3); LYMPH % 25.5 % (8-40); MCH 29.4 pg (25.7-33.7); MCHC 33.1 g/dl (32.0-36.0); MEAN CELL VOLUME 88.8 fl (80-96); MEAN PLT VOLUME 9.4 fl (7.5-11.1); MONO % 8.9 % (3.8-10.2); NEUT % 63.5 % (42.8-82.8); PLATELET COUNT 202 K/MM3 (134-434); RBC 4.86 M/mm3 (3.60-5.2); RDW 14.3 % (11.6-15.6); WHITE BLOOD COUNT 4.9 K/mm3 (4.0-10.0)
[2018-11-27 14:09] LABS: ALBUMIN 3.6 g/dl (3.4-5.0); BILIRUBIN,TOTAL 0.7 mg/dL (0.2-1); BLOOD UREA NITROGEN 18.3 mg/dL (7-18); CALCIUM 8.9 mg/dL (8.5-10.1); CREATININE 0.6 mg/dL (0.55-1.3); MAGNESIUM 2.2 mg/dL (1.8-2.4); POTASSIUM 4.1 mmol/L (3.5-5.1); TOT PROT 7.1 g/dl (6.4-8.2)
[2018-11-27 14:23] VITALS: BP 137/78; PULSE 63; TEMP 97.4
== END 2018-11-27 13:40 | disposition home or self-care (01) ==
LOC: JONCCHEMO 06:51 → J7W 13:06 → JONCCHEMO 13:40
PROVIDERS: ATTEND Internal Medicine Hematology & Oncology
PROC: 3E013GC Introduction of Other Therapeutic Substance into Subcutaneous Tissue, Percutaneous Approach (ICD-10-PCS; principal; 2018-11-27)
DX: D3A.012 Benign carcinoid tumor of the ileum (principal)
CPT/HCPCS: 36415; 80053; 83735; 85025; J2353

== ENCOUNTER 2018-12-29 07:21 | Day surgery (SDC) | payer OTHER ==
[2018-12-29] MEDS ORDERED: OCTREOTIDE ACETATE,MI-SPHERES (SANDOSTATIN LAR) 30 MG VIAL IM ONE (10:00)
[2018-12-29 11:10] LABS: EOS % 1.4 % (0-4.5); HEMATOCRIT 42.6 % (32.4-45.2); HEMOGLOBIN 14.5 GM/dL (10.7-15.3); LYMPH % 22.4 % (8-40); MCH 30.3 pg (25.7-33.7); MCHC 33.9 g/dl (32.0-36.0); MEAN CELL VOLUME 89.3 fl (80-96); MEAN PLT VOLUME 9.1 fl (7.5-11.1); MONO % 8.1 % (3.8-10.2); NEUT % 67.1 % (42.8-82.8); PLATELET COUNT 200 K/MM3 (134-434); RBC 4.77 M/mm3 (3.60-5.2); RDW 13.9 % (11.6-15.6); WHITE BLOOD COUNT 4.9 K/mm3 (4.0-10.0)
[2018-12-29 11:44] LABS: ALBUMIN 3.8 g/dl (3.4-5.0); BILIRUBIN,DIRECT 0.2 mg/dL (0.0-0.2); BILIRUBIN,TOTAL 0.5 mg/dL (0.2-1); BLOOD UREA NITROGEN 19.9 mg/dL (7-18); CALCIUM 8.7 mg/dL (8.5-10.1); CREATININE 0.6 mg/dL (0.55-1.3); MAGNESIUM 2.5 mg/dL (1.8-2.4); POTASSIUM 3.9 mmol/L (3.5-5.1); TOT PROT 7.3 g/dl (6.4-8.2)
[2018-12-29 18:11] VITALS: BP 95/68; PULSE 64; TEMP 98
== END 2018-12-29 14:00 | disposition home or self-care (01) ==
LOC: JONCCHEMO 07:21 → J7W 13:29 → JONCCHEMO 14:00
PROVIDERS: ATTEND Internal Medicine Hematology & Oncology
PROC: 3E013GC Introduction of Other Therapeutic Substance into Subcutaneous Tissue, Percutaneous Approach (ICD-10-PCS; principal; 2018-12-29)
DX: D3A.012 Benign carcinoid tumor of the ileum (principal); Z76.89 Persons encountering health services in other specified circumstances
CPT/HCPCS: 36415; 80048; 80076; 83735; 85025; 86316; J2353

== ENCOUNTER 2019-01-29 07:02 | Day surgery (SDC) | payer OTHER ==
[2019-01-29] MEDS ORDERED: OCTREOTIDE ACETATE,MI-SPHERES (SANDOSTATIN LAR) 30 MG VIAL IM ONE (10:00)
[2019-01-29 10:46] LABS: BASO % 0.7 % (0-2.0); EOS % 1.4 % (0-4.5); HEMOGLOBIN 13.9 GM/dL (10.7-15.3); LYMPH % 27.6 % (8-40); MCHC 33.8 g/dl (32.0-36.0); MEAN CELL VOLUME 88.9 fl (80-96); MEAN PLT VOLUME 8.9 fl (7.5-11.1); MONO % 8.1 % (3.8-10.2); NEUT % 62.2 % (42.8-82.8); PLATELET COUNT 197 K/MM3 (134-434); RBC 4.61 M/mm3 (3.60-5.2); RDW 13.9 % (11.6-15.6); WHITE BLOOD COUNT 4.6 K/mm3 (4.0-10.0)
[2019-01-29 11:11] LABS: ALBUMIN 3.6 g/dl (3.4-5.0); BILIRUBIN,DIRECT 0.2 mg/dL (0.0-0.2); BILIRUBIN,TOTAL 0.7 mg/dL (0.2-1); BLOOD UREA NITROGEN 17.6 mg/dL (7-18); CALCIUM 8.7 mg/dL (8.5-10.1); CREATININE 0.6 mg/dL (0.55-1.3); MAGNESIUM 2.1 mg/dL (1.8-2.4); TOT PROT 7.1 g/dl (6.4-8.2)
[2019-01-29 14:24] VITALS: BP 113/73; PULSE 69; TEMP 97.7
== END 2019-01-29 12:15 | disposition home or self-care (01) ==
LOC: JONCCHEMO 07:02 → J7W 11:56 → JONCCHEMO 12:15
PROVIDERS: ATTEND Internal Medicine Hematology & Oncology
PROC: 3E013GC Introduction of Other Therapeutic Substance into Subcutaneous Tissue, Percutaneous Approach (ICD-10-PCS; principal; 2019-01-29)
DX: D3A.012 Benign carcinoid tumor of the ileum (principal); Z76.89 Persons encountering health services in other specified circumstances
CPT/HCPCS: 36415; 80048; 80076; 83735; 85025; J2353

== ENCOUNTER 2019-02-26 05:23 | Day surgery (SDC) | payer OTHER ==
[2019-02-26] MEDS ORDERED: OCTREOTIDE ACETATE,MI-SPHERES (SANDOSTATIN LAR) 30 MG VIAL IM ONE (17:00)
[2019-02-26 17:55] VITALS: BP 121/73; PULSE 68; TEMP 97.6
== END 2019-02-26 18:40 | disposition home or self-care (01) ==
LOC: JONCCHEMO 05:23 → J7W 16:28 → JONCCHEMO 18:40
PROVIDERS: ATTEND Internal Medicine Hematology & Oncology
PROC: 3E013GC Introduction of Other Therapeutic Substance into Subcutaneous Tissue, Percutaneous Approach (ICD-10-PCS; principal; 2019-02-26)
DX: D3A.012 Benign carcinoid tumor of the ileum (principal); Z76.89 Persons encountering health services in other specified circumstances
CPT/HCPCS: 96372; 96401; J2353

== ENCOUNTER 2019-03-26 06:36 | Day surgery (SDC) | payer OTHER ==
[2019-03-26] MEDS ORDERED: OCTREOTIDE ACETATE,MI-SPHERES (SANDOSTATIN LAR) 30 MG VIAL IM ONE (11:00)
[2019-03-26 16:08] LABS: BASO % 0.8 % (0-2.0); EOS % 1.4 % (0-4.5); HEMATOCRIT 43.8 % (32.4-45.2); HEMOGLOBIN 14.6 GM/dL (10.7-15.3); LYMPH % 31.9 % (8-40); MCH 29.7 pg (25.7-33.7); MCHC 33.3 g/dl (32.0-36.0); MEAN CELL VOLUME 89.5 fl (80-96); MEAN PLT VOLUME 9.8 fl (7.5-11.1); MONO % 7.5 % (3.8-10.2); NEUT % 58.4 % (42.8-82.8); PLATELET COUNT 210 K/MM3 (134-434); RBC 4.89 M/mm3 (3.60-5.2); RDW 13.5 % (11.6-15.6); WHITE BLOOD COUNT 5.7 K/mm3 (4.0-10.0)
[2019-03-26 16:37] LABS: ALBUMIN 4.1 g/dl (3.4-5.0); BILIRUBIN,TOTAL 0.5 mg/dL (0.2-1); BLOOD UREA NITROGEN 23.9 mg/dL (7-18); CALCIUM 8.8 mg/dL (8.5-10.1); CREATININE 0.6 mg/dL (0.55-1.3); POTASSIUM 4.2 mmol/L (3.5-5.1); TOT PROT 7.5 g/dl (6.4-8.2)
[2019-03-26 18:17] VITALS: BP 117/76; PULSE 70; TEMP 97.4
[2019-03-26 19:19] LABS: URINE APPEARANCE CLEAR; URINE BILIRUBIN NEGATIVE (NEGATIVE); URINE COLOR YELLOW; URINE GLUCOSE (UA) NEGATIVE (NEGATIVE); URINE KETONE NEGATIVE (NEGATIVE); URINE LEUK ESTERASE NEGATIVE (NEGATIVE); URINE NITRITE NEGATIVE (NEGATIVE); URINE PROTEIN NEGATIVE (NEGATIVE); URINE UROBILINOGEN 0.2 mg/dL (0.2-1.0)
== END 2019-03-26 17:00 | disposition home or self-care (01) ==
LOC: JONCCHEMO 06:36 → J7W 16:29 → JONCCHEMO 17:00
PROVIDERS: ATTEND Internal Medicine Hematology & Oncology
PROC: 3E023GC Introduction of Other Therapeutic Substance into Muscle, Percutaneous Approach (ICD-10-PCS; principal; 2019-03-26)
DX: D3A.012 Benign carcinoid tumor of the ileum (principal)
CPT/HCPCS: 36415; 80053; 81003; 85025; 87086; 87186; 96372; 96401; J2353

== ENCOUNTER 2019-04-23 06:21 | Day surgery (SDC) | payer OTHER ==
[2019-04-23] MEDS ORDERED: OCTREOTIDE ACETATE,MI-SPHERES (SANDOSTATIN LAR) 30 MG VIAL IM ONE (10:00)
[2019-04-23 12:05] LABS: BASO % 0.7 % (0-2.0); EOS % 1.2 % (0-4.5); HEMATOCRIT 44.9 % (32.4-45.2); HEMOGLOBIN 14.7 GM/dL (10.7-15.3); LYMPH % 21.6 % (8-40); MCH 29.5 pg (25.7-33.7); MCHC 32.7 g/dl (32.0-36.0); MEAN CELL VOLUME 90.3 fl (80-96); MEAN PLT VOLUME 9.6 fl (7.5-11.1); MONO % 8.6 % (3.8-10.2); NEUT % 67.9 % (42.8-82.8); PLATELET COUNT 209 K/MM3 (134-434); RBC 4.98 M/mm3 (3.60-5.2); WHITE BLOOD COUNT 4.9 K/mm3 (4.0-10.0)
[2019-04-23 12:26] LABS: ALBUMIN 3.8 g/dl (3.4-5.0); BILIRUBIN,TOTAL 0.7 mg/dL (0.2-1); BLOOD UREA NITROGEN 16.1 mg/dL (7-18); CALCIUM 9.2 mg/dL (8.5-10.1); CREATININE 0.6 mg/dL (0.55-1.3); MAGNESIUM 2.2 mg/dL (1.8-2.4); POTASSIUM 4.1 mmol/L (3.5-5.1); TOT PROT 7.4 g/dl (6.4-8.2)
[2019-04-23 14:12] VITALS: BP 106/55; PULSE 76; TEMP 98.2
== END 2019-04-23 11:34 | disposition home or self-care (01) ==
LOC: JONCCHEMO 06:21 → J7W 11:03 → JONCCHEMO 11:34
PROVIDERS: ATTEND Internal Medicine Hematology & Oncology
PROC: 3E013GC Introduction of Other Therapeutic Substance into Subcutaneous Tissue, Percutaneous Approach (ICD-10-PCS; principal; 2019-04-23)
DX: D3A.012 Benign carcinoid tumor of the ileum (principal)
CPT/HCPCS: 36415; 80053; 83735; 85025; 96372; J2353

== ENCOUNTER 2019-05-21 07:07 | Day surgery (SDC) | payer OTHER ==
[2019-05-21] MEDS ORDERED: OCTREOTIDE ACETATE,MI-SPHERES (SANDOSTATIN LAR) 30 MG VIAL IM ONE (10:00)
[2019-05-21 15:27] LABS: BASO % 0.7 % (0-2.0); EOS % 1.5 % (0-4.5); HEMATOCRIT 42.6 % (32.4-45.2); HEMOGLOBIN 14.1 GM/dL (10.7-15.3); LYMPH % 28.5 % (8-40); MCH 29.5 pg (25.7-33.7); MCHC 33.1 g/dl (32.0-36.0); MEAN CELL VOLUME 89.2 fl (80-96); MEAN PLT VOLUME 9.7 fl (7.5-11.1); MONO % 7.5 % (3.8-10.2); NEUT % 61.8 % (42.8-82.8); PLATELET COUNT 210 K/MM3 (134-434); RBC 4.78 M/mm3 (3.60-5.2); RDW 13.7 % (11.6-15.6); WHITE BLOOD COUNT 5.2 K/mm3 (4.0-10.0)
[2019-05-21 15:40] LABS: ALBUMIN 3.9 g/dl (3.4-5.0); BILIRUBIN,TOTAL 0.5 mg/dL (0.2-1); CALCIUM 9.7 mg/dL (8.5-10.1); CREATININE 0.6 mg/dL (0.55-1.3); TOT PROT 7.5 g/dl (6.4-8.2)
[2019-05-21 17:59] VITALS: BP 130/64; PULSE 76; TEMP 97.5
== END 2019-05-21 16:30 | disposition home or self-care (01) ==
LOC: JONCCHEMO 07:07 → J7W 16:00 → JONCCHEMO 16:30
PROVIDERS: ATTEND Internal Medicine Hematology & Oncology
PROC: 3E023GC Introduction of Other Therapeutic Substance into Muscle, Percutaneous Approach (ICD-10-PCS; principal; 2019-05-21)
DX: D3A.012 Benign carcinoid tumor of the ileum (principal)
CPT/HCPCS: 36415; 80053; 85025; 96372; J2353

== ENCOUNTER 2019-06-25 07:06 | Day surgery (SDC) | payer OTHER ==
[~2019-06-25 07:06] MED LIST: OCTREOTIDE ACETATE,MI-SPHERES (SANDOSTATIN LAR) 30 MG VIAL IM ONE
[2019-06-25] MEDS ORDERED: OCTREOTIDE ACETATE,MI-SPHERES (SANDOSTATIN LAR) 30 MG VIAL IM ONE (10:00)
[2019-06-25 11:13] LABS: EOS % 1.8 % (0-4.5); HEMATOCRIT 44.9 % (32.4-45.2); LYMPH % 16.3 % (8-40); MCH 30.1 pg (25.7-33.7); MCHC 33.5 g/dl (32.0-36.0); MEAN CELL VOLUME 89.9 fl (80-96); MEAN PLT VOLUME 9.3 fl (7.5-11.1); MONO % 7.3 % (3.8-10.2); NEUT % 73.6 % (42.8-82.8); PLATELET COUNT 202 K/MM3 (134-434); RDW 13.7 % (11.6-15.6); WHITE BLOOD COUNT 5.6 K/mm3 (4.0-10.0)
[2019-06-25 11:50] LABS: ALBUMIN 3.9 g/dl (3.4-5.0); BILIRUBIN,TOTAL 0.6 mg/dL (0.2-1); BLOOD UREA NITROGEN 20.8 mg/dL (7-18); CALCIUM 9.2 mg/dL (8.5-10.1); CREATININE 0.6 mg/dL (0.55-1.3); MAGNESIUM 2.3 mg/dL (1.8-2.4); TOT PROT 7.4 g/dl (6.4-8.2)
[2019-06-25 13:45] VITALS: BP 110/71; PULSE 75; TEMP 97.6
== END 2019-06-25 13:15 | disposition home or self-care (01) ==
LOC: JONCCHEMO 07:06 → J7W 12:41 → JONCCHEMO 13:15
PROVIDERS: ATTEND Internal Medicine Hematology & Oncology
PROC: 3E013GC Introduction of Other Therapeutic Substance into Subcutaneous Tissue, Percutaneous Approach (ICD-10-PCS; principal; 2019-06-25)
DX: D3A.012 Benign carcinoid tumor of the ileum (principal)
CPT/HCPCS: 36415; 80053; 83735; 85025; 96372; J2353

== ENCOUNTER 2019-07-23 05:25 | Day surgery (SDC) | payer OTHER ==
[2019-07-23] MEDS ORDERED: OCTREOTIDE ACETATE,MI-SPHERES (SANDOSTATIN LAR) 30 MG VIAL IM ONE (10:00)
[2019-07-23 15:57] LABS: BASO % 0.6 % (0-2.0); EOS % 1.1 % (0-4.5); HEMATOCRIT 41.6 % (32.4-45.2); HEMOGLOBIN 13.9 GM/dL (10.7-15.3); MCH 29.7 pg (25.7-33.7); MCHC 33.4 g/dl (32.0-36.0); MEAN CELL VOLUME 88.7 fl (80-96); MEAN PLT VOLUME 9.6 fl (7.5-11.1); MONO % 8.8 % (3.8-10.2); NEUT % 63.5 % (42.8-82.8); PLATELET COUNT 209 K/MM3 (134-434); RBC 4.69 M/mm3 (3.60-5.2); RDW 13.7 % (11.6-15.6); WHITE BLOOD COUNT 5.6 K/mm3 (4.0-10.0)
[2019-07-23 16:23] LABS: BILIRUBIN,TOTAL 0.5 mg/dL (0.2-1); BLOOD UREA NITROGEN 22.2 mg/dL (7-18); CALCIUM 8.8 mg/dL (8.5-10.1); CREATININE 0.5 mg/dL (0.55-1.3); POTASSIUM 4.1 mmol/L (3.5-5.1); TOT PROT 7.4 g/dl (6.4-8.2)
[2019-07-23 17:01] VITALS: BP 127/77; PULSE 68; TEMP 97.2
== END 2019-07-23 16:55 | disposition home or self-care (01) ==
LOC: JONCCHEMO 05:25 → J7W 16:09 → JONCCHEMO 16:55
PROVIDERS: ATTEND Internal Medicine Hematology & Oncology
PROC: 3E013GC Introduction of Other Therapeutic Substance into Subcutaneous Tissue, Percutaneous Approach (ICD-10-PCS; principal; 2019-07-23)
DX: D3A.012 Benign carcinoid tumor of the ileum (principal); Z76.89 Persons encountering health services in other specified circumstances
CPT/HCPCS: 36415; 80053; 85025; 96372; J2353

== ENCOUNTER 2019-08-03 09:48 | Day surgery (SDC) | payer OTHER ==
[2019-08-02 18:15] VITALS: BMI 24.1
[2019-08-03] MEDS ORDERED: MIDAZOLAM HCL 2 MG/2 ML SINGLE DOSE VIAL ONE ×2 (13:31)
[2019-08-03] MEDS ORDERED: fentaNYL CITRATE 250 MCG/5 ML VIAL ONE (13:32)
[2019-08-03] MEDS ORDERED: ceFAZolin SODIUM 1 GM VIAL IVPB ONE (13:40)
--- NOTE | 2019-08-03 14:06 | OP ---
Operative Note - Note: Operative Date: 08/03/19 Pre-Operative Diagnosis: Left renal calculus Operation: Left ESWL Findings: 5 mm calc left kidney Post-Operative Diagnosis: Same as Pre-op Surgeon: Christina Dimas Anesthesia: General Operative Report Dictated: Yes
--- NOTE | 2019-08-03 14:46 | OP ---
DATE OF OPERATION: 08/03/2019 SURGEON: Christina Dimas MD ANESTHESIA: General. PREOPERATIVE DIAGNOSIS: Left renal calculus. POSTOPERATIVE DIAGNOSIS: Left renal calculus. PROCEDURE: Left extracorporeal shock-wave lithotripsy. FINDINGS: Lower pole calyceal calculus noted about 5 mm in size. DESCRIPTION OF PROCEDURE: Patient in supine position with the left side up was prepped and draped in the usual manner. Using ultrasonography of the left kidney, the stone was identified, and ESWL started under general anesthesia; 2500 shocks were given and good fragmentation of the calculus noted. Patient was given 1 g of Ancef. Tolerated the procedure well and left the operating room in a satisfactory condition. CHRISTINA DIMAS M.D. MARCO/[id number]
[2019-08-03 15:16] VITALS: BP 130/76; PULSE 58; TEMP 97.9
== END 2019-08-03 15:25 | disposition home or self-care (01) ==
LOC: JASU-SURG 09:48
PROVIDERS: ATTEND Urology
PROC: 0TF4XZZ Fragmentation in Left Kidney Pelvis, External Approach (ICD-10-PCS; principal; 2019-08-03 12:45)
DX: N20.0 Calculus of kidney (principal)

== ENCOUNTER 2019-08-27 06:32 | Day surgery (SDC) | payer OTHER ==
[2019-08-27 11:39] LABS: BASO % 0.6 % (0-2.0); HEMATOCRIT 43.5 % (32.4-45.2); HEMOGLOBIN 14.5 GM/dL (10.7-15.3); LYMPH % 18.4 % (8-40); MCH 29.5 pg (25.7-33.7); MCHC 33.3 g/dl (32.0-36.0); MEAN CELL VOLUME 88.8 fl (80-96); MEAN PLT VOLUME 9.3 fl (7.5-11.1); MONO % 8.7 % (3.8-10.2); NEUT % 71.3 % (42.8-82.8); PLATELET COUNT 223 K/MM3 (134-434); RDW 13.9 % (11.6-15.6); WHITE BLOOD COUNT 5.2 K/mm3 (4.0-10.0)
[2019-08-27] MEDS ORDERED: OCTREOTIDE ACETATE,MI-SPHERES (SANDOSTATIN LAR) 30 MG VIAL IM ONE (12:00)
[2019-08-27 12:07] LABS: ALBUMIN 3.9 g/dl (3.4-5.0); BILIRUBIN,TOTAL 0.7 mg/dL (0.2-1); BLOOD UREA NITROGEN 22.2 mg/dL (7-18); CALCIUM 9.2 mg/dL (8.5-10.1); CREATININE 0.6 mg/dL (0.55-1.3); POTASSIUM 4.2 mmol/L (3.5-5.1); TOT PROT 7.8 g/dl (6.4-8.2)
[2019-08-27 13:43] VITALS: BP 137/82; PULSE 77; TEMP 98.1
== END 2019-08-27 12:50 | disposition home or self-care (01) ==
LOC: JONCCHEMO 06:32 → J7W 12:07 → JONCCHEMO 12:50
PROVIDERS: ATTEND Internal Medicine Hematology & Oncology
PROC: 3E013GC Introduction of Other Therapeutic Substance into Subcutaneous Tissue, Percutaneous Approach (ICD-10-PCS; principal; 2019-08-27)
DX: D3A.012 Benign carcinoid tumor of the ileum (principal)
CPT/HCPCS: 36415; 80053; 85025; 96372; J2353

== ENCOUNTER 2019-12-03 06:55 | Day surgery (SDC) | payer OTHER ==
[2019-12-03] MEDS ORDERED: OCTREOTIDE ACETATE,MI-SPHERES (SANDOSTATIN LAR) 30 MG VIAL IM ONE (09:00)
[2019-12-03 14:25] LABS: BASO % 0.7 % (0-2.0); EOS % 1.2 % (0-4.5); HEMATOCRIT 41.4 % (32.4-45.2); MCH 29.9 pg (25.7-33.7); MCHC 33.8 g/dl (32.0-36.0); MEAN CELL VOLUME 88.4 fl (80-96); MEAN PLT VOLUME 8.9 fl (7.5-11.1); MONO % 9.4 % (3.8-10.2); NEUT % 65.7 % (42.8-82.8); PLATELET COUNT 252 K/MM3 (134-434); RBC 4.68 M/mm3 (3.60-5.2); RDW 13.8 % (11.6-15.6); WHITE BLOOD COUNT 6.4 K/mm3 (4.0-10.0)
[2019-12-03 15:31] LABS: ALBUMIN 3.5 g/dl (3.4-5.0); BILIRUBIN,TOTAL 0.4 mg/dL (0.2-1); BLOOD UREA NITROGEN 17.3 mg/dL (7-18); CALCIUM 9.1 mg/dL (8.5-10.1); CREATININE 0.5 mg/dL (0.55-1.3); POTASSIUM 4.2 mmol/L (3.5-5.1); TOT PROT 7.5 g/dl (6.4-8.2)
[2019-12-03 16:02] VITALS: BP 114/69; PULSE 73; TEMP 98.1
== END 2019-12-03 15:00 | disposition home or self-care (01) ==
LOC: JONCCHEMO 06:55
PROVIDERS: ATTEND Internal Medicine Hematology & Oncology
PROC: 3E013GC Introduction of Other Therapeutic Substance into Subcutaneous Tissue, Percutaneous Approach (ICD-10-PCS; principal; 2019-12-03)
DX: D3A.012 Benign carcinoid tumor of the ileum (principal)
CPT/HCPCS: 36415; 80053; 85025; 96372; J2353

== ENCOUNTER 2019-12-31 07:19 | Day surgery (SDC) | payer OTHER ==
[2019-12-31] MEDS ORDERED: OCTREOTIDE ACETATE,MI-SPHERES (SANDOSTATIN LAR) 30 MG VIAL IM ONE (10:00)
[2019-12-31 12:40] LABS: BASO % 0.8 % (0-2.0); EOS % 1.3 % (0-4.5); HEMATOCRIT 43.2 % (32.4-45.2); HEMOGLOBIN 14.2 GM/dL (10.7-15.3); LYMPH % 24.2 % (8-40); MCH 29.2 pg (25.7-33.7); MEAN CELL VOLUME 88.7 fl (80-96); MEAN PLT VOLUME 9.4 fl (7.5-11.1); MONO % 7.4 % (3.8-10.2); NEUT % 66.3 % (42.8-82.8); PLATELET COUNT 195 K/MM3 (134-434); RBC 4.87 M/mm3 (3.60-5.2)
[2019-12-31 13:23] LABS: ALBUMIN 3.6 g/dl (3.4-5.0); BILIRUBIN,TOTAL 0.7 mg/dL (0.2-1); BLOOD UREA NITROGEN 14.8 mg/dL (7-18); CALCIUM 8.9 mg/dL (8.5-10.1); CREATININE 0.6 mg/dL (0.55-1.3); POTASSIUM 3.9 mmol/L (3.5-5.1); TOT PROT 7.3 g/dl (6.4-8.2)
[2019-12-31 15:58] VITALS: BP 117/69; PULSE 84; TEMP 98.5
== END 2019-12-31 13:45 | disposition home or self-care (01) ==
LOC: JONCCHEMO 07:19
PROVIDERS: ATTEND Internal Medicine Hematology & Oncology
PROC: 3E013GC Introduction of Other Therapeutic Substance into Subcutaneous Tissue, Percutaneous Approach (ICD-10-PCS; principal; 2019-12-31)
DX: D3A.012 Benign carcinoid tumor of the ileum (principal)
CPT/HCPCS: 36415; 80053; 85025; 96372; J2353

== ENCOUNTER 2020-01-28 07:23 | Day surgery (SDC) | payer OTHER ==
[2020-01-28] MEDS ORDERED: OCTREOTIDE ACETATE,MI-SPHERES (SANDOSTATIN LAR) 30 MG VIAL IM ONE (10:00)
[2020-01-28 15:19] LABS: BASO % 0.7 % (0-2.0); EOS % 1.4 % (0-4.5); HEMATOCRIT 41.2 % (32.4-45.2); HEMOGLOBIN 13.7 GM/dL (10.7-15.3); LYMPH % 28.6 % (8-40); MCH 29.6 pg (25.7-33.7); MCHC 33.3 g/dl (32.0-36.0); MEAN PLT VOLUME 9.6 fl (7.5-11.1); MONO % 9.1 % (3.8-10.2); NEUT % 60.2 % (42.8-82.8); PLATELET COUNT 192 K/MM3 (134-434); RBC 4.63 M/mm3 (3.60-5.2); RDW 13.9 % (11.6-15.6); WHITE BLOOD COUNT 5.6 K/mm3 (4.0-10.0)
[2020-01-28 15:55] LABS: BILIRUBIN,TOTAL 0.5 mg/dL (0.2-1); BLOOD UREA NITROGEN 19.4 mg/dL (7-18); CREATININE 0.6 mg/dL (0.55-1.3); POTASSIUM 4.2 mmol/L (3.5-5.1); TOT PROT 7.4 g/dl (6.4-8.2)
[2020-01-28 16:24] VITALS: BP 113/74; PULSE 77; TEMP 97.4
== END 2020-01-28 16:24 | disposition home or self-care (01) ==
LOC: JONCCHEMO 07:23
PROVIDERS: ATTEND Internal Medicine Hematology & Oncology
PROC: 3E013GC Introduction of Other Therapeutic Substance into Subcutaneous Tissue, Percutaneous Approach (ICD-10-PCS; principal; 2020-01-28)
DX: D3A.012 Benign carcinoid tumor of the ileum (principal)
CPT/HCPCS: 36415; 80053; 83497; 85025; 86316; 96372; J2353

== ENCOUNTER 2020-02-25 07:15 | Day surgery (SDC) | payer OTHER ==
[2020-02-25] MEDS ORDERED: OCTREOTIDE ACETATE,MI-SPHERES (SANDOSTATIN LAR) 30 MG VIAL IM ONE (10:00)
[2020-02-25 14:47] LABS: BASO % 0.4 % (0-2.0); EOS % 1.3 % (0-4.5); HEMATOCRIT 42.7 % (32.4-45.2); HEMOGLOBIN 14.5 GM/dL (10.7-15.3); LYMPH % 25.8 % (8-40); MCH 30.1 pg (25.7-33.7); MEAN CELL VOLUME 88.4 fl (80-96); MEAN PLT VOLUME 9.4 fl (7.5-11.1); MONO % 8.6 % (3.8-10.2); NEUT % 63.9 % (42.8-82.8); PLATELET COUNT 195 K/MM3 (134-434); RBC 4.83 M/mm3 (3.60-5.2); RDW 13.8 % (11.6-15.6); WHITE BLOOD COUNT 6.2 K/mm3 (4.0-10.0)
[2020-02-25 15:14] LABS: ALBUMIN 3.9 g/dl (3.4-5.0); BILIRUBIN,TOTAL 0.4 mg/dL (0.2-1); BLOOD UREA NITROGEN 22.7 mg/dL (7-18); CALCIUM 9.2 mg/dL (8.5-10.1); CREATININE 0.6 mg/dL (0.55-1.3); MAGNESIUM 2.4 mg/dL (1.8-2.4); POTASSIUM 4.2 mmol/L (3.5-5.1); TOT PROT 7.7 g/dl (6.4-8.2)
[2020-02-25 16:05] VITALS: BP 135/84; PULSE 81; TEMP 98.2
== END 2020-02-25 16:06 | disposition home or self-care (01) ==
LOC: JONCCHEMO 07:15
PROVIDERS: ATTEND Internal Medicine Hematology & Oncology
PROC: 3E013GC Introduction of Other Therapeutic Substance into Subcutaneous Tissue, Percutaneous Approach (ICD-10-PCS; principal; 2020-02-25)
DX: D3A.012 Benign carcinoid tumor of the ileum (principal)
CPT/HCPCS: 36415; 80053; 83735; 85025; 96372; J2353

== ENCOUNTER 2020-03-24 07:25 | Day surgery (SDC) | payer OTHER ==
--- OUTSIDE RECORDS SUMMARY | 2020-03-24 07:28 | XMS ---
:1955 Author Organization [facility] Support Name Relationship Address Phone [facility] Unavailable [address] [place] [address] DERICK LINARES [address] [place] [address] Re-disclosure Warning The records that you are about to access may contain information from federally- assisted alcohol or drug abuse programs. If such information is present, then the following federally mandated warning applies: This information has been disclosed to you from records protected by federal confidentiality rules (42 CFR part 2). The federal rules prohibit you from making any further disclosure of this information unless further disclosure is expressly permitted by the written consent of the person to whom it pertains or as otherwise permitted by 42 CFR part 2. A general authorization for the release of medical or other information is NOT sufficient for this purpose. The Federal rules restrict any use of the information to criminally investigate or prosecute any alcohol or drug abuse patient.The records that you are about to access may contain highly sensitive health information, the redisclosure of which is protected by Article 27-F of the [facility] Public Health law. If you continue you may haveaccess to information: Regarding HIV / AIDS; Provided by facilities licensed or operated by the [facility] Office of Mental Health; or Provided by the [facility] Office for People With Developmental Disabilities. If such information is present, then the following [facility] mandated warning applies: This information has been disclosed to you from confidential records which are protected by state law. State law prohibits you from making any further disclosure of this information without the specific written consent of the person to whom it pertains, or as otherwise permitted by law. Any unauthorized further disclosure in violation of state law may result in a fine or snf sentence or both. A general authorization for the release of medical or other information is NOT sufficient authorization for further disclosure. Insurance Providers Payer name Policy type Policy ID Covered Covered constitution party's Policy P ry / Coverage constitution party ID relationship to [employer] ormation type [facility] LOCAL [id number] - [id number] [facility] [id number] [facility] Results ID Date Data Source [id number] 01/20/2020 12:00:00 AM EDT [facility] Name Value Range Interpretation Description Data Sup porting Code Source(s) Document(s ) SARS [facility] coronavirus 2 (SARS-CoV-2) This lab was ordered by [facility] and reported by [facility]. ID Date Data Source [id number] 01/13/2020 07:52:00 PM EDT [facility] Name Value Range Interpretation Description Data Sup porting Code Source(s) Document(s ) SARS [facility] coronavirus 2 RNA [Presence] in Respiratory specimen by AUSTYN with probe detection This lab was ordered by [facility] COVID-19 and reported by [facility]. ID Date Data Source [id number] 12/24/2019 12:00:00 AM EDT [facility] Name Value Range Interpretation Code Description Data Felecia rce(s) Supporting Document(s ) 2018-nCoV [facility] RNA XXX AUSTYN+probe- Imp This lab was ordered by [facility] and reported by [facility]. ID Date Data Source [id number] 11/29/2019 12:00:00 AM EDT [facility] Name Value Range Interpretation Code Description Data Felecia rce(s) Supporting Document(s ) COV2 [facility] This lab was ordered by [facility] and reported by [facility]. ID Date Data Source [id number] 11/16/2019 12:00:00 AM EDT [facility] Name Value Range Interpretation Code Description Data Felecia rce(s) Supporting Document(s ) 2018-nCoV [facility] RNA XXX AUSTYN+probe- Imp This lab was ordered by [facility] and reported by [facility]. ID Date Data Source [id number] 11/11/2019 12:00:00 AM EDT [facility] Name Value Range Interpretation Code Description Data Felecia rce(s) Supporting Document(s ) 2018-nCoV [facility] RNA XXX AUSTYN+probe- Imp This lab was ordered by [facility] and reported by [facility]. ID Date Data Source [id number] 11/08/2019 12:00:00 AM EDT [facility] Name Value Range Interpretation Code Description Data Felecia rce(s) Supporting Document(s ) nCoV [facility] RNA XXX AUSTYN+probe- Imp This lab was ordered by [facility] and reported by [employer] ID Date Data Source [id number] 11/04/2019 12:00:00 AM EDT [facility] Name Value Range Interpretation Code Description Data Felecia rce(s) Supporting Document(s ) 2018-nCoV [facility] RNA XXX AUSTYN+probe- Imp This lab was ordered by [facility] and reported by [employer] ID Date Data Source [id number] 11/02/2019 12:00:00 AM EDT [facility] Name Value Range Interpretation Code Description Data Felecia rce(s) Supporting Document(s ) 2018-nCoV [facility] RNA XXX AUSTYN+probe- Imp This lab was ordered by [facility] and reported by [employer] Procedure
[2020-03-24] MEDS ORDERED: OCTREOTIDE ACETATE,MI-SPHERES (SANDOSTATIN LAR) 30 MG VIAL IM ONE (10:00)
[2020-03-24 10:40] LABS: BASO % 0.8 % (0-2.0); EOS % 1.2 % (0-4.5); HEMATOCRIT 42.4 % (32.4-45.2); LYMPH % 21.5 % (8-40); MCH 29.6 pg (25.7-33.7); MCHC 33.1 g/dl (32.0-36.0); MEAN CELL VOLUME 89.2 fl (80-96); MEAN PLT VOLUME 9.6 fl (7.5-11.1); MONO % 9.4 % (3.8-10.2); NEUT % 67.1 % (42.8-82.8); PLATELET COUNT 189 K/MM3 (134-434); RBC 4.75 M/mm3 (3.60-5.2); RDW 14.1 % (11.6-15.6); WHITE BLOOD COUNT 4.8 K/mm3 (4.0-10.0)
[2020-03-24 11:07] LABS: ALBUMIN 3.6 g/dl (3.4-5.0); BILIRUBIN,TOTAL 0.5 mg/dL (0.2-1); BLOOD UREA NITROGEN 20.8 mg/dL (7-18); CALCIUM 9.1 mg/dL (8.5-10.1); CREATININE 0.6 mg/dL (0.55-1.3); POTASSIUM 4.1 mmol/L (3.5-5.1); TOT PROT 7.2 g/dl (6.4-8.2)
[2020-03-24 17:40] VITALS: BP 113/75; TEMP 98.3
[2020-03-27 08:05] VITALS: PULSE 79
== END 2020-03-24 12:35 | disposition home or self-care (01) ==
LOC: JONCCHEMO 07:25
PROVIDERS: ATTEND Internal Medicine Hematology & Oncology
PROC: 3E023GC Introduction of Other Therapeutic Substance into Muscle, Percutaneous Approach (ICD-10-PCS; principal; 2020-03-24)
DX: D3A.012 Benign carcinoid tumor of the ileum (principal)
CPT/HCPCS: 36415; 80053; 84439; 84443; 85025; 96372; J2353

== ENCOUNTER 2020-05-26 14:33 | Inpatient (IN) | payer OTHER ==
[2020-05-26 16:50] LABS: BASO % 0.7 % (0-2.0); EOS % 0.2 % (0-4.5); HEMATOCRIT 45.3 % (32.4-45.2); HEMOGLOBIN 15.1 GM/dL (10.7-15.3); LYMPH % 5.9 % (8-40); MCH 29.4 pg (25.7-33.7); MCHC 33.4 g/dl (32.0-36.0); MEAN CELL VOLUME 88.2 fl (80-96); MEAN PLT VOLUME 9.7 fl (7.5-11.1); MONO % 7.3 % (3.8-10.2); NEUT % 85.9 % (42.8-82.8); PLATELET COUNT 224 K/MM3 (134-434); RBC 5.14 M/mm3 (3.60-5.2); RDW 13.6 % (11.6-15.6); WHITE BLOOD COUNT 11.6 K/mm3 (4.0-10.0)
[2020-05-26 16:59] LABS: INR 1.09 (0.83-1.09); PROTHROMBIN TIME (PATIENT) 13.2 SEC (9.7-13.0)
[2020-05-26 17:02] LABS: ACTIVATED PTT 28.5 SECONDS (25.2-36.5)
[2020-05-26 17:08] LABS: POTASSIUM 3.4 mmol/L (3.5-5.1)
[2020-05-26 17:10] LABS: ALBUMIN 4.1 g/dl (3.4-5.0); BLOOD UREA NITROGEN 16.5 mg/dL (7-18); CALCIUM 9.1 mg/dL (8.5-10.1)
[2020-05-26 17:13] LABS: CREATININE 0.6 mg/dL (0.55-1.3)
[2020-05-26 17:15] LABS: BILIRUBIN,TOTAL 1.2 mg/dL (0.2-1); TOT PROT 7.8 g/dl (6.4-8.2)
[2020-05-26] MEDS ORDERED: LACTATED RINGERS SOLUTION 1000 ML INFUS.BAG IV ONE (17:31)
[2020-05-26 18:44] LABS: EPI CELLS >36 /uL (0-25.1); HYALINE CASTS 17 /uL (0-3.1); PH,URINE 5.5 (5.0-8.0); URINE APPEARANCE CLOUDY; URINE BACTERIA >9,000 /uL (0-1359); URINE BILIRUBIN 1+ (NEGATIVE); URINE COLOR DK YELLOW; URINE GLUCOSE (UA) 1+ (NEGATIVE); URINE KETONE TRACE (NEGATIVE); URINE LEUK ESTERASE TRACE (NEGATIVE); URINE NITRITE NEGATIVE (NEGATIVE); URINE PROTEIN 1+ (NEGATIVE); URINE RBC 5 /uL (0-23.9); URINE WBC 77 /uL (0-25.8)
[2020-05-26] MEDS ORDERED: SODIUM PHOSPHATE/NA BIPHOS 133 ML ENEMA PR ONE (20:18)
[2020-05-26] MEDS ORDERED: LACTATED RINGERS SOLUTION 1,000 ML/1,000 ML INFUS.BAG IV SCH (21:00)
[2020-05-26] MEDS ORDERED: KCL 10 MEQ IVPB 10 MEQ/100 ML INFUS.BAG IVPB ONE ×2 (22:03→23:47)
[2020-05-26] MEDS: KCL 10 MEQ IVPB 10 MEQ/100 ML INFUS.BAG IVPB SCH ×2 (22:13→23:54)
[2020-05-26] MEDS ORDERED: KETOROLAC TROMETHAMINE 15 MG/ML VIAL IVPUSH PRN (22:22)
[2020-05-26] MEDS: LACTATED RINGERS SOLUTION 1,000 ML/1,000 ML INFUS.BAG IV SCH (22:30)
[2020-05-26 23:55] LABS: MAGNESIUM 2.1 mg/dL (1.8-2.4)
[2020-05-27] MEDS ORDERED: NITROFURANTOIN MACROCRYSTAL 50 MG CAPSULE (FP) ONE (00:07)
[2020-05-27] MEDS: NITROFURANTOIN MACROCRYSTAL 50 MG CAPSULE (FP) PO SCH ×5 (00:10→23:42)
[2020-05-27] MEDS ORDERED: POTASSIUM CHLORIDE TABS 10 MEQ TABLET.ER (FP) PO ONE (00:10)
[2020-05-27] MEDS ORDERED: POTASSIUM CHLORIDE TABS 20 MEQ TABLET.ER (FP) PO ONE (00:12)
[2020-05-27] MEDS: KCL 10 MEQ IVPB 10 MEQ/100 ML INFUS.BAG IVPB SCH (01:23)
[2020-05-27 04:06] VITALS: BMI 25.4
[2020-05-27] MEDS: LACTATED RINGERS SOLUTION 1,000 ML/1,000 ML INFUS.BAG IV SCH ×3 (07:52→23:00)
[2020-05-27 09:10] LABS: BASO % 0.2 % (0-2.0); EOS % 0.1 % (0-4.5); HEMATOCRIT 41.1 % (32.4-45.2); HEMOGLOBIN 13.8 GM/dL (10.7-15.3); LYMPH % 5.9 % (8-40); MCH 29.7 pg (25.7-33.7); MCHC 33.7 g/dl (32.0-36.0); MEAN CELL VOLUME 88.2 fl (80-96); MEAN PLT VOLUME 9.5 fl (7.5-11.1); MONO % 7.3 % (3.8-10.2); NEUT % 86.5 % (42.8-82.8); PLATELET COUNT 192 K/MM3 (134-434); RBC 4.66 M/mm3 (3.60-5.2); RDW 13.6 % (11.6-15.6); WHITE BLOOD COUNT 10.6 K/mm3 (4.0-10.0)
[2020-05-27 09:39] LABS: POTASSIUM 3.7 mmol/L (3.5-5.1)
[2020-05-27 09:41] LABS: ALBUMIN 3.5 g/dl (3.4-5.0)
[2020-05-27 09:42] LABS: CALCIUM 8.4 mg/dL (8.5-10.1)
[2020-05-27 09:45] LABS: CREATININE 0.5 mg/dL (0.55-1.3)
[2020-05-27 09:46] LABS: PHOSPHOROUS 2.7 mg/dL (2.5-4.9); TOT PROT 6.6 g/dl (6.4-8.2)
[2020-05-27 09:47] LABS: BILIRUBIN,TOTAL 1.7 mg/dL (0.2-1)
[2020-05-27] MEDS ORDERED: POLYETHYLENE GLYCOL 3350 119 GM BTL PO SCH ×2 (10:00)
[2020-05-27] MEDS: ENOXAPARIN NA (PORCINE) 40 MG/0.4 ML DISP.SYRIN SQ SCH (10:03)
[2020-05-27 11:22] LABS: BILIRUBIN,DIRECT 0.4 mg/dL (0.0-0.2)
[2020-05-27] MEDS: SODIUM PHOSPHATE/NA BIPHOS 133 ML ENEMA RC SCH ×2 (18:03→22:04)
[2020-05-27] MEDS: PANTOPRAZOLE SODIUM 40 MG VIAL IVPUSH SCH (21:58)
[2020-05-27] MEDS: RIFAXIMIN 550 MG TABLET (UD) PO SCH (21:58)
[2020-05-27] MEDS: POLYETHYLENE GLYCOL 3350 119 GM BTL PO SCH (22:03)
[2020-05-28] MEDS: LACTATED RINGERS SOLUTION 1,000 ML/1,000 ML INFUS.BAG IV SCH ×4 (06:41→23:34)
[2020-05-28] MEDS: NITROFURANTOIN MACROCRYSTAL 50 MG CAPSULE (FP) PO SCH ×4 (06:41→23:34)
[2020-05-28] MEDS: RIFAXIMIN 550 MG TABLET (UD) PO SCH ×3 (06:41→22:47)
[2020-05-28 08:32] LABS: BASO % 0.1 % (0-2.0); EOS % 0.1 % (0-4.5); HEMATOCRIT 38.8 % (32.4-45.2); HEMOGLOBIN 13.1 GM/dL (10.7-15.3); LYMPH % 4.5 % (8-40); MCH 29.8 pg (25.7-33.7); MCHC 33.8 g/dl (32.0-36.0); MEAN CELL VOLUME 88.3 fl (80-96); MEAN PLT VOLUME 10.1 fl (7.5-11.1); MONO % 7.3 % (3.8-10.2); PLATELET COUNT 168 K/MM3 (134-434); RDW 13.7 % (11.6-15.6); WHITE BLOOD COUNT 14.1 K/mm3 (4.0-10.0)
[2020-05-28 08:47] LABS: POTASSIUM 3.2 mmol/L (3.5-5.1)
[2020-05-28 08:57] LABS: ALBUMIN 3.3 g/dl (3.4-5.0); CALCIUM 8.6 mg/dL (8.5-10.1)
[2020-05-28 09:00] LABS: BILIRUBIN,TOTAL 2.2 mg/dL (0.2-1); CREATININE 0.4 mg/dL (0.55-1.3); TOT PROT 6.4 g/dl (6.4-8.2)
[2020-05-28 09:01] LABS: PHOSPHOROUS 2.5 mg/dL (2.5-4.9)
[2020-05-28] MEDS: PANTOPRAZOLE SODIUM 40 MG VIAL IVPUSH SCH (10:01)
[2020-05-28] MEDS: ENOXAPARIN NA (PORCINE) 40 MG/0.4 ML DISP.SYRIN SQ SCH (10:01)
[2020-05-28] MEDS: POLYETHYLENE GLYCOL 3350 119 GM BTL PO SCH ×2 (10:02→22:47)
[2020-05-28] MEDS ORDERED: POTASSIUM CHLORIDE TABS 20 MEQ TABLET.ER (FP) PO ONE (22:47)
[2020-05-28] MEDS ORDERED: BISACODYL 5 MG TABLET.DR (FP) PO ONE (22:59)
[2020-05-29] MEDS: RIFAXIMIN 550 MG TABLET (UD) PO SCH ×3 (05:51→21:34)
[2020-05-29] MEDS: NITROFURANTOIN MACROCRYSTAL 50 MG CAPSULE (FP) PO SCH ×3 (05:51→17:21)
[2020-05-29 09:01] LABS: BASO % 0.6 % (0-2.0); EOS % 0.2 % (0-4.5); HEMOGLOBIN 12.7 GM/dL (10.7-15.3); LYMPH % 5.4 % (8-40); MCH 29.5 pg (25.7-33.7); MCHC 33.4 g/dl (32.0-36.0); MEAN CELL VOLUME 88.5 fl (80-96); MEAN PLT VOLUME 10.1 fl (7.5-11.1); NEUT % 85.8 % (42.8-82.8); PLATELET COUNT 176 K/MM3 (134-434); RDW 13.6 % (11.6-15.6)
[2020-05-29] MEDS: PANTOPRAZOLE SODIUM 40 MG VIAL IVPUSH SCH (09:02)
[2020-05-29] MEDS: ENOXAPARIN NA (PORCINE) 40 MG/0.4 ML DISP.SYRIN SQ SCH (09:02)
[2020-05-29 09:22] LABS: POTASSIUM 3.5 mmol/L (3.5-5.1)
[2020-05-29 09:27] LABS: CALCIUM 8.4 mg/dL (8.5-10.1)
[2020-05-29 09:28] LABS: ALBUMIN 2.9 g/dl (3.4-5.0)
[2020-05-29 09:30] LABS: BILIRUBIN,DIRECT 0.4 mg/dL (0.0-0.2)
[2020-05-29 09:31] LABS: CREATININE 0.5 mg/dL (0.55-1.3)
[2020-05-29 09:32] LABS: BILIRUBIN,TOTAL 1.4 mg/dL (0.2-1); TOT PROT 6.1 g/dl (6.4-8.2)
[2020-05-29] MEDS: POLYETHYLENE GLYCOL 3350 119 GM BTL PO SCH ×2 (10:43→21:34)
[2020-05-29] MEDS: LACTATED RINGERS SOLUTION 1,000 ML/1,000 ML INFUS.BAG IV SCH (20:45)
[2020-05-30] MEDS: LACTATED RINGERS SOLUTION 1,000 ML/1,000 ML INFUS.BAG IV SCH (00:05)
[2020-05-30] MEDS: RIFAXIMIN 550 MG TABLET (UD) PO SCH (05:38)
[2020-05-30 09:05] LABS: BASO % 0.4 % (0-2.0); EOS % 1.1 % (0-4.5); HEMATOCRIT 36.7 % (32.4-45.2); HEMOGLOBIN 12.3 GM/dL (10.7-15.3); MCH 29.4 pg (25.7-33.7); MCHC 33.5 g/dl (32.0-36.0); MEAN CELL VOLUME 87.7 fl (80-96); MEAN PLT VOLUME 9.6 fl (7.5-11.1); MONO % 10.3 % (3.8-10.2); NEUT % 81.2 % (42.8-82.8); PLATELET COUNT 186 K/MM3 (134-434); RBC 4.18 M/mm3 (3.60-5.2); RDW 13.6 % (11.6-15.6); WHITE BLOOD COUNT 8.5 K/mm3 (4.0-10.0)
[2020-05-30 09:16] LABS: POTASSIUM 3.3 mmol/L (3.5-5.1)
[2020-05-30] MEDS: ENOXAPARIN NA (PORCINE) 40 MG/0.4 ML DISP.SYRIN SQ SCH (09:19)
[2020-05-30] MEDS: POLYETHYLENE GLYCOL 3350 119 GM BTL PO SCH ×2 (09:20→21:21)
[2020-05-30] MEDS: PANTOPRAZOLE SODIUM 40 MG VIAL IVPUSH SCH (09:20)
[2020-05-30 09:31] LABS: ALBUMIN 2.9 g/dl (3.4-5.0); BLOOD UREA NITROGEN 3.8 mg/dL (7-18); CALCIUM 8.9 mg/dL (8.5-10.1)
[2020-05-30 09:32] LABS: MAGNESIUM 2.2 mg/dL (1.8-2.4)
[2020-05-30 09:34] LABS: CREATININE 0.4 mg/dL (0.55-1.3); PHOSPHOROUS 3.1 mg/dL (2.5-4.9)
[2020-05-30 09:36] LABS: TOT PROT 6.3 g/dl (6.4-8.2)
[2020-05-30 09:39] LABS: BILIRUBIN,TOTAL 0.9 mg/dL (0.2-1)
[2020-05-30] MEDS ORDERED: POTASSIUM CHLORIDE TABS 20 MEQ TABLET.ER (FP) PO ONE (11:38)
[2020-05-31 07:17] VITALS: BP 128/70; PULSE 79; TEMP 98
[2020-05-31] MEDS ORDERED: ACETAMINOPHEN 325 MG TABLET (FP) PO PRN (08:30)
[2020-05-31] MEDS: PANTOPRAZOLE SODIUM 40 MG VIAL IVPUSH SCH (09:00)
[2020-05-31] MEDS: ENOXAPARIN NA (PORCINE) 40 MG/0.4 ML DISP.SYRIN SQ SCH (09:01)
[2020-05-31] MEDS: POLYETHYLENE GLYCOL 3350 119 GM BTL PO SCH (09:29)
[2020-05-31 10:00] LABS: HEMATOCRIT 38.2 % (32.4-45.2); MCH 29.8 pg (25.7-33.7); MEAN CELL VOLUME 87.6 fl (80-96); MEAN PLT VOLUME 8.9 fl (7.5-11.1); PLATELET COUNT 237 K/MM3 (134-434); RBC 4.37 M/mm3 (3.60-5.2); RDW 13.6 % (11.6-15.6); WHITE BLOOD COUNT 8.7 K/mm3 (4.0-10.0)
[2020-05-31 10:04] LABS: POTASSIUM 3.6 mmol/L (3.5-5.1)
[2020-05-31 10:12] LABS: ALBUMIN 2.8 g/dl (3.4-5.0); BLOOD UREA NITROGEN 6.5 mg/dL (7-18)
[2020-05-31 10:13] LABS: CALCIUM 8.4 mg/dL (8.5-10.1); MAGNESIUM 2.2 mg/dL (1.8-2.4)
[2020-05-31 10:15] LABS: CREATININE 0.4 mg/dL (0.55-1.3)
[2020-05-31 10:16] LABS: PHOSPHOROUS 3.7 mg/dL (2.5-4.9)
[2020-05-31 10:17] LABS: BILIRUBIN,TOTAL 1.3 mg/dL (0.2-1); TOT PROT 6.4 g/dl (6.4-8.2)
== END 2020-05-31 15:45 | disposition home or self-care (01) | DRG 439 ==
LOC: JER 14:33 → JERBED 18:42 → J6S 05-27 01:17
PROVIDERS: ADMIT Internal Medicine; ATTEND Student in an Organized Health Care Education/Training Program
DX: K85.10 Biliary acute pancreatitis without necrosis or infection (principal); K86.2 Cyst of pancreas; K59.00 Constipation, unspecified; R74.01 Elevation of levels of liver transaminase levels; D72.829 Elevated white blood cell count, unspecified; E87.6 Hypokalemia; K46.9 Unspecified abdominal hernia without obstruction or gangrene; K76.0 Fatty (change of) liver, not elsewhere classified; D25.9 Leiomyoma of uterus, unspecified; E78.5 Hyperlipidemia, unspecified
CPT/HCPCS: 36415; 71046-TC-FY; 74177-TC; 74181-TC; 76705-TC; 80048; 80053; 80061; 80076; 81003; 82248; 83605; 83690; 83721; 83735; 84100; 84478; 85025; 85027; 85610; 85730; 86850; 86900; 86901; 87040; 93005; 93010; 99285-25; C9803; Q9967; U0003

== ENCOUNTER 2020-10-23 13:50 | Inpatient (IN) | payer OTHER ==
[2020-10-23 13:55] VITALS: BMI 25.2
[2020-10-23] MEDS ORDERED: FAMOTIDINE 20 MG/50 ML IVPB 20 MG/50 ML MG IVPB ONE ×2 (14:53→15:21)
[2020-10-23] MEDS ORDERED: morphine CARPU-JECT 4 MG/1 ML DISP.SYRIN IVPUSH ONE (14:53)
[2020-10-23] MEDS ORDERED: SODIUM CHLORIDE 0.9% 500 ML INFUS.BAG IV ONE (14:53)
[2020-10-23] MEDS ORDERED: morphine SULFATE 4 MG/ML VIAL ONE (15:21)
[2020-10-23 16:34] LABS: BASO % 0.1 % (0-2.0); HEMATOCRIT 45.5 % (32.4-45.2); HEMOGLOBIN 15.5 GM/dL (10.7-15.3); LYMPH % 1.5 % (8-40); MCH 29.9 pg (25.7-33.7); MEAN CELL VOLUME 87.9 fl (80-96); MONO % 5.2 % (3.8-10.2); NEUT % 93.2 % (42.8-82.8); PLATELET COUNT 200 K/MM3 (134-434); RBC 5.18 M/mm3 (3.60-5.2); RDW 15.8 % (11.6-15.6); WHITE BLOOD COUNT 13.2 K/mm3 (4.0-10.0)
[2020-10-23 16:42] LABS: INR 1.03 (0.83-1.09); PROTHROMBIN TIME (PATIENT) 12.5 SEC (9.7-13.0)
[2020-10-23 16:45] LABS: ACTIVATED PTT 28.4 SECONDS (25.2-36.5)
[2020-10-23 17:01] LABS: CHLORIDE 104 mmol/L (98-107); SODIUM 138 mmol/L (136-145)
[2020-10-23 17:04] LABS: ALBUMIN 3.3 g/dl (3.4-5.0); ANION GAP 10 MMOL/L (8-16); BLOOD UREA NITROGEN 13.8 mg/dL (7-18); CALCIUM 9.1 mg/dL (8.5-10.1); CO2 24 mmol/L (21-32); GLUCOSE,RANDOM 231 mg/dL (74-106)
[2020-10-23 17:07] LABS: CREATININE 0.7 mg/dL (0.55-1.3); SGOT/AST 66 U/L (15-37); SGPT/ALT 109 U/L (13-61)
[2020-10-23 17:08] LABS: BILIRUBIN,TOTAL 9.7 mg/dL (0.2-1); TOT PROT 7.3 g/dl (6.4-8.2)
[2020-10-23 17:12] LABS: ALK PHOS 383 U/L (45-117); LIPASE 9038 U/L (73-393)
[2020-10-23] MEDS ORDERED: PIPERACILLIN/TAZOB 4.5 GM 4.5 GM in DEXTROSE 5%-WATER 100 ML IVPB ONE (17:30)
[2020-10-23 18:51] LABS: TRIGLYCERIDES 267 mg/dL (0-150)
[2020-10-23] MEDS ORDERED: PIPERACILLIN/TAZOB 4.5 GM 4.5 GM/100 ML BAG IVPB ONE (19:06)
[2020-10-23 19:35] LABS: PLATELET ESTIMATE ADEQUATE
[2020-10-23] MEDS ORDERED: LACTATED RINGERS SOLUTION 1,000 ML/1,000 ML INFUS.BAG IV SCH (19:45)
[2020-10-24] MEDS ORDERED: PIPERACILLIN/TAZOB 3.375 GM 3.375 GM in DEXTROSE 5%-WATER - 50 ML IVPB SCH (00:15)
[2020-10-24] MEDS ORDERED: MORPHINE SULFATE 2 MG/ML VIAL IVPUSH PRN (01:38)
[2020-10-24] MEDS ORDERED: PIPERACILLIN/TAZOB 3.375 GM 3.375 GM/50 ML BAG IVPB ONE ×3 (02:30→09:32)
[2020-10-24] MEDS: PIPERACILLIN/TAZOB 3.375 GM 3.375 GM in DEXTROSE 5%-WATER - 50 ML IVPB SCH ×4 (02:35→16:26)
[2020-10-24] MEDS: LACTATED RINGERS SOLUTION 1,000 ML/1,000 ML INFUS.BAG IV SCH (02:43)
[2020-10-24] MEDS: INSULIN SLIDING SCALE (NOVOLOG) 1 VIAL SQ SCH ×4 (03:22→17:37)
[2020-10-24 06:28] LABS: HEMATOCRIT 39.5 % (32.4-45.2); HEMOGLOBIN 13.6 GM/dL (10.7-15.3); MCH 30.1 pg (25.7-33.7); MCHC 34.5 g/dl (32.0-36.0); MEAN CELL VOLUME 87.4 fl (80-96); MEAN PLT VOLUME 10.9 fl (7.5-11.1); PLATELET COUNT 169 K/MM3 (134-434); RBC 4.52 M/mm3 (3.60-5.2); RDW 15.6 % (11.6-15.6); WHITE BLOOD COUNT 9.3 K/mm3 (4.0-10.0)
[2020-10-24 07:14] LABS: ALBUMIN 2.9 g/dl (3.4-5.0); CALCIUM 8.7 mg/dL (8.5-10.1)
[2020-10-24 07:16] LABS: BLOOD UREA NITROGEN 14.7 mg/dL (7-18); MAGNESIUM 2.2 mg/dL (1.8-2.4)
[2020-10-24 07:18] LABS: CREATININE 0.5 mg/dL (0.55-1.3); PHOSPHOROUS 3.9 mg/dL (2.5-4.9)
[2020-10-24 07:20] LABS: BILIRUBIN,TOTAL 8.5 mg/dL (0.2-1); TOT PROT 6.3 g/dl (6.4-8.2)
[2020-10-24] MEDS: ENOXAPARIN NA (PORCINE) 40 MG/0.4 ML DISP.SYRIN SQ SCH (11:00)
[2020-10-24] MEDS ORDERED: ENOXAPARIN NA (PORCINE) 40 MG/0.4 ML DISP.SYRIN SQ ONE (11:54)
[2020-10-24] MEDS ORDERED: DEXTROSE 5%-WATER - 50 ML IVPB ONE (16:22)
[2020-10-24] MEDS ORDERED: PIPERACILLIN/TAZOBACTAM 3.375 GM VIAL IVPB ONE (16:22)
[2020-10-24] MEDS: URSODIOL 300 MG CAPSULE PO SCH (22:17)
[2020-10-25] MEDS: LACTATED RINGERS SOLUTION 1,000 ML/1,000 ML INFUS.BAG IV SCH (01:12)
[2020-10-25] MEDS: INSULIN SLIDING SCALE (NOVOLOG) 1 VIAL SQ SCH ×4 (01:12→17:23)
[2020-10-25] MEDS ORDERED: PIPERACILLIN/TAZOBACTAM 3.375 GM VIAL IVPB ONE ×3 (01:15→17:02)
[2020-10-25] MEDS ORDERED: DEXTROSE 5%-WATER - 50 ML IVPB ONE ×2 (01:16→08:59)
[2020-10-25] MEDS: PIPERACILLIN/TAZOB 3.375 GM 3.375 GM in DEXTROSE 5%-WATER - 50 ML IVPB SCH ×3 (01:36→17:07)
[2020-10-25 07:05] LABS: BASO % 0.5 % (0-2.0); EOS % 0.8 % (0-4.5); HEMATOCRIT 37.1 % (32.4-45.2); HEMOGLOBIN 12.4 GM/dL (10.7-15.3); MCH 29.5 pg (25.7-33.7); MCHC 33.5 g/dl (32.0-36.0); MEAN CELL VOLUME 88.2 fl (80-96); MONO % 9.4 % (3.8-10.2); NEUT % 74.3 % (42.8-82.8); PLATELET COUNT 152 K/MM3 (134-434); RBC 4.21 M/mm3 (3.60-5.2); RDW 15.6 % (11.6-15.6); WHITE BLOOD COUNT 5.5 K/mm3 (4.0-10.0)
[2020-10-25 07:42] LABS: CALCIUM 8.7 mg/dL (8.5-10.1)
[2020-10-25 07:44] LABS: ALBUMIN 2.6 g/dl (3.4-5.0); BLOOD UREA NITROGEN 15.5 mg/dL (7-18); MAGNESIUM 2.2 mg/dL (1.8-2.4)
[2020-10-25 07:46] LABS: CREATININE 0.5 mg/dL (0.55-1.3)
[2020-10-25 07:47] LABS: BILIRUBIN,TOTAL 7.4 mg/dL (0.2-1); TOT PROT 5.8 g/dl (6.4-8.2)
[2020-10-25] MEDS ORDERED: PT OWN MED DRAWER 7, Y5N ONE ×2 (09:01→22:09)
[2020-10-25] MEDS: URSODIOL 300 MG CAPSULE PO SCH ×2 (09:34→22:12)
[2020-10-25] MEDS ORDERED: PANTOPRAZOLE SODIUM 40 MG VIAL IVPUSH SCH (10:00)
[2020-10-25] MEDS: ENOXAPARIN NA (PORCINE) 40 MG/0.4 ML DISP.SYRIN SQ SCH (10:44)
[2020-10-25 23:55] VITALS: BP 126/74; PULSE 68; TEMP 99
== END 2020-10-26 00:02 | disposition short-term general hospital (02) | DRG 439 ==
LOC: JER 13:50 → JERBED 18:12 → J4W 10-24 15:54
PROVIDERS: ADMIT Hospitalist; ATTEND Nurse Practitioner Acute Care
DX: K85.10 Biliary acute pancreatitis without necrosis or infection (principal); K86.3 Pseudocyst of pancreas; C7A.012 Malignant carcinoid tumor of the ileum; I48.92 Unspecified atrial flutter; K56.609 Unspecified intestinal obstruction, unspecified as to partial versus complete obstruction; I48.91 Unspecified atrial fibrillation; K86.9 Disease of pancreas, unspecified; E78.5 Hyperlipidemia, unspecified; E11.65 Type 2 diabetes mellitus with hyperglycemia
CPT/HCPCS: 36415; 71045-TC-FY; 74177-TC; 74182-TC; 76705-TC; 80053; 80074; 82150; 82248; 82550; 82962; 83036; 83605; 83690; 83735; 84100; 84443; 84478; 84484; 85025; 85027; 85610; 85730; 86301; 86304; 86316; 86850; 86900; 86901; 93005; 93010; 93306-TC; 99285-25; A9579; C9803; Q9967; U0003; U0005

== ENCOUNTER 2020-11-17 14:43 | Day surgery (SDC) | payer OTHER ==
[2020-11-17 14:47] LABS: BASO % 1.5 % (0-2.0); EOS % 7.7 % (0-4.5); HEMATOCRIT 42.7 % (32.4-45.2); HEMOGLOBIN 14.3 GM/dL (10.7-15.3); LYMPH % 28.7 % (8-40); MCHC 33.5 g/dl (32.0-36.0); MEAN CELL VOLUME 86.5 fl (80-96); MEAN PLT VOLUME 9.6 fl (7.5-11.1); MONO % 9.3 % (3.8-10.2); NEUT % 52.8 % (42.8-82.8); PLATELET COUNT 255 K/MM3 (134-434); RBC 4.94 M/mm3 (3.60-5.2); RDW 14.5 % (11.6-15.6); WHITE BLOOD COUNT 5.9 K/mm3 (4.0-10.0)
[2020-11-17] MEDS ORDERED: OCTREOTIDE ACETATE,MI-SPHERES (SANDOSTATIN LAR) 30 MG VIAL IM ONE ×2 (15:00)
[2020-11-17 15:03] LABS: BLOOD UREA NITROGEN 18.4 mg/dL (7-18); CALCIUM 9.1 mg/dL (8.5-10.1)
[2020-11-17 15:04] LABS: ALBUMIN 3.5 g/dl (3.4-5.0)
[2020-11-17 15:06] LABS: CREATININE 0.4 mg/dL (0.55-1.3)
[2020-11-17 15:08] LABS: BILIRUBIN,TOTAL 1.1 mg/dL (0.2-1)
[2020-11-17 16:05] VITALS: BP 114/81; PULSE 87; TEMP 98.2
== END 2020-11-17 15:30 | disposition home or self-care (01) ==
LOC: JONCCHEMO 14:43
PROVIDERS: ATTEND Internal Medicine Hematology & Oncology
PROC: 3E013GC Introduction of Other Therapeutic Substance into Subcutaneous Tissue, Percutaneous Approach (ICD-10-PCS; principal; 2020-11-17)
DX: D3A.012 Benign carcinoid tumor of the ileum (principal)
CPT/HCPCS: 36415; 80053; 85025; 96372; J2353

== ENCOUNTER 2020-12-13 07:13 | Day surgery (SDC) | payer OTHER ==
[2020-12-13] MEDS ORDERED: OCTREOTIDE ACETATE,MI-SPHERES (SANDOSTATIN LAR) 30 MG VIAL IM ONE (10:00)
[2020-12-13 15:15] LABS: BASO % 1.2 % (0-2.0); EOS % 1.2 % (0-4.5); HEMATOCRIT 44.6 % (32.4-45.2); HEMOGLOBIN 14.7 GM/dL (10.7-15.3); LYMPH % 24.2 % (8-40); MCH 28.9 pg (25.7-33.7); MEAN CELL VOLUME 87.5 fl (80-96); MEAN PLT VOLUME 8.9 fl (7.5-11.1); MONO % 8.6 % (3.8-10.2); NEUT % 64.8 % (42.8-82.8); PLATELET COUNT 248 10^3/uL (134-434); RBC 5.09 M/mm3 (3.60-5.2); RDW 14.4 % (11.6-15.6); WHITE BLOOD COUNT 5.8 K/mm3 (4.0-10.0)
[2020-12-13 15:40] LABS: BLOOD UREA NITROGEN 21.8 mg/dL (7-18)
[2020-12-13 15:43] LABS: CREATININE 0.7 mg/dL (0.55-1.3)
[2020-12-13 15:44] LABS: BILIRUBIN,TOTAL 0.9 mg/dL (0.2-1); TOT PROT 7.9 g/dl (6.4-8.2)
[2020-12-13 17:36] VITALS: BP 125/83; PULSE 80; TEMP 99.2
== END 2020-12-13 16:20 | disposition home or self-care (01) ==
LOC: JONCCHEMO 07:13
PROVIDERS: ATTEND Internal Medicine Hematology & Oncology
PROC: 3E013GC Introduction of Other Therapeutic Substance into Subcutaneous Tissue, Percutaneous Approach (ICD-10-PCS; principal; 2020-12-13)
DX: D3A.012 Benign carcinoid tumor of the ileum (principal); Z76.89 Persons encountering health services in other specified circumstances
CPT/HCPCS: 36415; 80053; 85025; 96372; J2353

== ENCOUNTER 2021-01-10 08:42 | Day surgery (SDC) | payer OTHER ==
[2021-01-10] MEDS ORDERED: OCTREOTIDE ACETATE,MI-SPHERES (SANDOSTATIN LAR) 30 MG VIAL IM ONE (10:00)
[2021-01-10 15:10] LABS: BASO % 1.5 % (0-2.0); EOS % 1.9 % (0-4.5); HEMATOCRIT 41.3 % (32.4-45.2); HEMOGLOBIN 14.1 GM/dL (10.7-15.3); LYMPH % 29.5 % (8-40); MCH 29.9 pg (25.7-33.7); MCHC 34.2 g/dl (32.0-36.0); MEAN CELL VOLUME 87.4 fl (80-96); MEAN PLT VOLUME 9.1 fl (7.5-11.1); MONO % 8.5 % (3.8-10.2); NEUT % 58.6 % (42.8-82.8); PLATELET COUNT 208 10^3/uL (134-434); RBC 4.72 M/mm3 (3.60-5.2); RDW 14.1 % (11.6-15.6); WHITE BLOOD COUNT 5.6 K/mm3 (4.0-10.0)
[2021-01-10 15:34] LABS: CALCIUM 8.9 mg/dL (8.5-10.1)
[2021-01-10 15:35] LABS: ALBUMIN 3.9 g/dl (3.4-5.0); BLOOD UREA NITROGEN 20.2 mg/dL (7-18)
[2021-01-10 15:38] LABS: CREATININE 0.6 mg/dL (0.55-1.3)
[2021-01-10 15:40] LABS: BILIRUBIN,TOTAL 0.7 mg/dL (0.2-1); TOT PROT 7.8 g/dl (6.4-8.2)
[2021-01-10 16:07] VITALS: BP 128/76; PULSE 74; TEMP 97.5
== END 2021-01-10 16:00 | disposition home or self-care (01) ==
LOC: JONCCHEMO 08:42
PROVIDERS: ATTEND Internal Medicine Hematology & Oncology
PROC: 3E013GC Introduction of Other Therapeutic Substance into Subcutaneous Tissue, Percutaneous Approach (ICD-10-PCS; principal; 2021-01-10)
DX: D3A.012 Benign carcinoid tumor of the ileum (principal)
CPT/HCPCS: 36415; 80053; 85025; 86316; 96372; J2353

== ENCOUNTER 2021-02-07 07:33 | Day surgery (SDC) | payer OTHER ==
[2021-02-07] MEDS ORDERED: OCTREOTIDE ACETATE,MI-SPHERES (SANDOSTATIN LAR) 30 MG VIAL IM ONE (10:00)
[2021-02-07 15:16] LABS: BASO % 1.3 % (0-2.0); EOS % 0.9 % (0-4.5); HEMATOCRIT 41.2 % (32.4-45.2); HEMOGLOBIN 13.9 GM/dL (10.7-15.3); LYMPH % 28.1 % (8-40); MCH 29.9 pg (25.7-33.7); MCHC 33.6 g/dl (32.0-36.0); MEAN CELL VOLUME 88.9 fl (80-96); MONO % 10.2 % (3.8-10.2); NEUT % 59.5 % (42.8-82.8); PLATELET COUNT 206 10^3/uL (134-434); RBC 4.64 M/mm3 (3.60-5.2); RDW 13.7 % (11.6-15.6); WHITE BLOOD COUNT 5.5 K/mm3 (4.0-10.0)
[2021-02-07 15:39] LABS: BLOOD UREA NITROGEN 21.9 mg/dL (7-18); CALCIUM 8.7 mg/dL (8.5-10.1)
[2021-02-07 15:43] LABS: CREATININE 0.7 mg/dL (0.55-1.3)
[2021-02-07 15:44] LABS: BILIRUBIN,TOTAL 0.6 mg/dL (0.2-1)
[2021-02-07 15:49] LABS: TOT PROT 7.6 g/dl (6.4-8.2)
[2021-02-07 18:10] VITALS: BP 114/71; PULSE 68; TEMP 98
== END 2021-02-07 16:35 | disposition home or self-care (01) ==
LOC: JONCCHEMO 07:33
PROVIDERS: ATTEND Internal Medicine Hematology & Oncology
PROC: 3E023GC Introduction of Other Therapeutic Substance into Muscle, Percutaneous Approach (ICD-10-PCS; principal; 2021-02-07)
DX: Z76.89 Persons encountering health services in other specified circumstances (principal); D3A.012 Benign carcinoid tumor of the ileum
CPT/HCPCS: 36415; 80053; 85025; 96372; J2353

== ENCOUNTER 2021-03-14 07:32 | Day surgery (SDC) | payer OTHER ==
[2021-03-14] MEDS ORDERED: OCTREOTIDE ACETATE,MI-SPHERES (SANDOSTATIN LAR) 30 MG VIAL IM ONE (11:15)
[2021-03-14 16:38] VITALS: BP 130/81; PULSE 70; TEMP 98.2
[2021-03-14 16:44] LABS: BASO % 1.2 % (0-2.0); EOS % 1.6 % (0-4.5); HEMATOCRIT 41.7 % (32.4-45.2); HEMOGLOBIN 14.2 GM/dL (10.7-15.3); LYMPH % 26.8 % (8-40); MCH 29.8 pg (25.7-33.7); MEAN CELL VOLUME 87.6 fl (80-96); MONO % 9.1 % (3.8-10.2); NEUT % 61.3 % (42.8-82.8); PLATELET COUNT 204 10^3/uL (134-434); RBC 4.77 M/mm3 (3.60-5.2); RDW 13.7 % (11.6-15.6); WHITE BLOOD COUNT 6.1 K/mm3 (4.0-10.0)
[2021-03-14 16:59] LABS: ALBUMIN 3.8 g/dl (3.4-5.0); BLOOD UREA NITROGEN 16.1 mg/dL (7-18)
[2021-03-14 17:03] LABS: CREATININE 0.5 mg/dL (0.55-1.3)
[2021-03-14 17:05] LABS: BILIRUBIN,TOTAL 0.7 mg/dL (0.2-1); TOT PROT 7.8 g/dl (6.4-8.2)
== END 2021-03-14 16:20 | disposition home or self-care (01) ==
LOC: JONCCHEMO 07:32
PROVIDERS: ATTEND Internal Medicine Hematology & Oncology
PROC: 3E013GC Introduction of Other Therapeutic Substance into Subcutaneous Tissue, Percutaneous Approach (ICD-10-PCS; principal; 2021-03-14)
DX: D3A.012 Benign carcinoid tumor of the ileum (principal); Z76.89 Persons encountering health services in other specified circumstances
CPT/HCPCS: 36415; 80053; 85025; 96372; J2353

== ENCOUNTER 2021-04-18 07:31 | Day surgery (SDC) | payer OTHER ==
[2021-04-18] MEDS ORDERED: OCTREOTIDE ACETATE,MI-SPHERES (SANDOSTATIN LAR) 30 MG VIAL IM ONE (10:00)
[2021-04-18 15:38] LABS: BASO % 0.6 % (0-2.0); EOS % 0.9 % (0-4.5); HEMATOCRIT 42.1 % (32.4-45.2); HEMOGLOBIN 14.3 GM/dL (10.7-15.3); LYMPH % 23.4 % (8-40); MCH 29.7 pg (25.7-33.7); MCHC 33.9 g/dl (32.0-36.0); MEAN CELL VOLUME 87.6 fl (80-96); MEAN PLT VOLUME 9.1 fl (7.5-11.1); NEUT % 66.1 % (42.8-82.8); PLATELET COUNT 212 10^3/uL (134-434); RBC 4.81 M/mm3 (3.60-5.2); RDW 13.6 % (11.6-15.6); WHITE BLOOD COUNT 6.9 K/mm3 (4.0-10.0)
[2021-04-18 16:00] LABS: CALCIUM 9.2 mg/dL (8.5-10.1)
[2021-04-18 16:01] LABS: BLOOD UREA NITROGEN 21.3 mg/dL (7-18)
[2021-04-18 16:04] LABS: CREATININE 0.8 mg/dL (0.55-1.3)
[2021-04-18 16:05] LABS: BILIRUBIN,TOTAL 0.5 mg/dL (0.2-1); TOT PROT 7.6 g/dl (6.4-8.2)
[2021-04-18 17:57] VITALS: BP 131/75; PULSE 78; TEMP 98.1
== END 2021-04-18 16:17 | disposition home or self-care (01) ==
LOC: JONCCHEMO 07:31
PROVIDERS: ATTEND Internal Medicine Hematology & Oncology
PROC: 3E013GC Introduction of Other Therapeutic Substance into Subcutaneous Tissue, Percutaneous Approach (ICD-10-PCS; principal; 2021-04-18)
DX: D3A.012 Benign carcinoid tumor of the ileum (principal); Z76.89 Persons encountering health services in other specified circumstances
CPT/HCPCS: 36415; 80053; 85025; 96372; J2353

== ENCOUNTER 2021-05-25 08:39 | Day surgery (SDC) | payer OTHER ==
[2021-05-25] MEDS ORDERED: OCTREOTIDE ACETATE,MI-SPHERES (SANDOSTATIN LAR) 30 MG VIAL IM ONE (10:00)
[2021-05-25 15:32] LABS: BASO % 0.8 % (0-2.0); EOS % 1.2 % (0-4.5); HEMATOCRIT 43.3 % (32.4-45.2); HEMOGLOBIN 14.5 GM/dL (10.7-15.3); MCH 29.4 pg (25.7-33.7); MCHC 33.5 g/dl (32.0-36.0); MEAN CELL VOLUME 87.7 fl (80-96); MONO % 8.4 % (3.8-10.2); NEUT % 64.6 % (42.8-82.8); PLATELET COUNT 201 10^3/uL (134-434); RBC 4.94 M/mm3 (3.60-5.2); RDW 13.4 % (11.6-15.6); WHITE BLOOD COUNT 6.2 K/mm3 (4.0-10.0)
[2021-05-25 15:48] LABS: CALCIUM 9.6 mg/dL (8.5-10.1)
[2021-05-25 15:49] LABS: BLOOD UREA NITROGEN 18.4 mg/dL (7-18)
[2021-05-25 15:52] LABS: CREATININE 0.6 mg/dL (0.55-1.3)
[2021-05-25 15:53] LABS: BILIRUBIN,TOTAL 0.6 mg/dL (0.2-1)
[2021-05-25 17:07] VITALS: BP 127/84; PULSE 78; TEMP 97.1
== END 2021-05-25 16:35 | disposition home or self-care (01) ==
LOC: JONCCHEMO 08:39
PROVIDERS: ATTEND Internal Medicine Hematology & Oncology
DX: D3A.012 Benign carcinoid tumor of the ileum (principal); Z76.89 Persons encountering health services in other specified circumstances
CPT/HCPCS: 36415; 80053; 85025; 96372; J2353

== ENCOUNTER 2021-06-22 07:16 | Day surgery (SDC) | payer OTHER ==
[2021-06-22] MEDS ORDERED: OCTREOTIDE ACETATE,MI-SPHERES (SANDOSTATIN LAR) 30 MG VIAL IM ONE (10:00)
[2021-06-22 17:33] LABS: BASO % 0.6 % (0-2.0); EOS % 1.4 % (0-4.5); HEMATOCRIT 41.6 % (32.4-45.2); LYMPH % 26.7 % (8-40); MCH 29.8 pg (25.7-33.7); MCHC 33.7 g/dl (32.0-36.0); MEAN CELL VOLUME 88.6 fl (80-96); MONO % 8.4 % (3.8-10.2); NEUT % 62.9 % (42.8-82.8); PLATELET COUNT 227 10^3/uL (134-434); RDW 13.7 % (11.6-15.6); WHITE BLOOD COUNT 6.9 K/mm3 (4.0-10.0)
[2021-06-22 17:44] VITALS: BP 139/88; PULSE 75; TEMP 97.8
[2021-06-22 17:51] LABS: CALCIUM 9.2 mg/dL (8.5-10.1)
[2021-06-22 17:52] LABS: ALBUMIN 3.9 g/dl (3.4-5.0)
[2021-06-22 17:55] LABS: CREATININE 0.6 mg/dL (0.55-1.3)
[2021-06-22 17:56] LABS: BILIRUBIN,TOTAL 0.4 mg/dL (0.2-1); TOT PROT 7.7 g/dl (6.4-8.2)
== END 2021-06-22 16:30 | disposition home or self-care (01) ==
LOC: JONCCHEMO 07:16
PROVIDERS: ATTEND Internal Medicine Hematology & Oncology
PROC: 3E013GC Introduction of Other Therapeutic Substance into Subcutaneous Tissue, Percutaneous Approach (ICD-10-PCS; principal; 2021-06-22)
DX: D3A.012 Benign carcinoid tumor of the ileum (principal); Z76.89 Persons encountering health services in other specified circumstances
CPT/HCPCS: 36415; 80053; 85025; 96372; J2353

== ENCOUNTER 2021-07-20 06:33 | Day surgery (SDC) | payer OTHER ==
[2021-07-20] MEDS ORDERED: OCTREOTIDE ACETATE,MI-SPHERES (SANDOSTATIN LAR) 30 MG VIAL IM ONE (11:30)
[2021-07-20 12:10] LABS: BASO % 0.5 % (0-2.0); EOS % 0.8 % (0-4.5); HEMATOCRIT 42.2 % (32.4-45.2); HEMOGLOBIN 14.2 GM/dL (10.7-15.3); LYMPH % 17.6 % (8-40); MCH 29.7 pg (25.7-33.7); MCHC 33.7 g/dl (32.0-36.0); MEAN PLT VOLUME 8.9 fl (7.5-11.1); MONO % 6.7 % (3.8-10.2); NEUT % 74.4 % (42.8-82.8); PLATELET COUNT 226 10^3/uL (134-434); RDW 13.6 % (11.6-15.6)
[2021-07-20 12:23] LABS: ALBUMIN 3.7 g/dl (3.4-5.0); BLOOD UREA NITROGEN 20.9 mg/dL (7-18); CALCIUM 9.5 mg/dL (8.5-10.1)
[2021-07-20 12:26] LABS: CREATININE 0.6 mg/dL (0.55-1.3)
[2021-07-20 12:28] LABS: BILIRUBIN,TOTAL 0.5 mg/dL (0.2-1); TOT PROT 7.4 g/dl (6.4-8.2)
[2021-07-20 18:38] VITALS: BP 128/80; PULSE 76; TEMP 98.2
== END 2021-07-20 13:35 | disposition home or self-care (01) ==
LOC: JONCCHEMO 06:33
PROVIDERS: ATTEND Internal Medicine Hematology & Oncology
PROC: 3E033GC Introduction of Other Therapeutic Substance into Peripheral Vein, Percutaneous Approach (ICD-10-PCS; principal; 2021-07-20)
DX: Z76.89 Persons encountering health services in other specified circumstances (principal); D3A.012 Benign carcinoid tumor of the ileum
CPT/HCPCS: 36415; 80053; 85025; 96372; J2353

== ENCOUNTER 2021-08-17 07:31 | Day surgery (SDC) | payer OTHER ==
[2021-08-17] MEDS ORDERED: OCTREOTIDE ACETATE,MI-SPHERES (SANDOSTATIN LAR) 30 MG VIAL IM ONE (10:00)
[2021-08-17 15:39] LABS: BASO % 0.4 % (0-2.0); EOS % 1.6 % (0-4.5); HEMATOCRIT 40.4 % (32.4-45.2); HEMOGLOBIN 13.6 GM/dL (10.7-15.3); LYMPH % 27.2 % (8-40); MCH 29.3 pg (25.7-33.7); MCHC 33.8 g/dl (32.0-36.0); MEAN CELL VOLUME 86.6 fl (80-96); MEAN PLT VOLUME 8.9 fl (7.5-11.1); MONO % 8.1 % (3.8-10.2); NEUT % 62.7 % (42.8-82.8); PLATELET COUNT 199 10^3/uL (134-434); RBC 4.66 M/mm3 (3.60-5.2); RDW 13.2 % (11.6-15.6)
[2021-08-17 15:56] LABS: ALBUMIN 4.1 g/dl (3.4-5.0)
[2021-08-17 15:57] LABS: BLOOD UREA NITROGEN 20.4 mg/dL (7-18)
[2021-08-17 15:59] LABS: CREATININE 0.6 mg/dL (0.55-1.3)
[2021-08-17 16:01] LABS: BILIRUBIN,TOTAL 0.6 mg/dL (0.2-1); TOT PROT 7.4 g/dl (6.4-8.2)
[2021-08-17 17:16] VITALS: BP 115/79; PULSE 73; TEMP 98
== END 2021-08-17 17:18 | disposition home or self-care (01) ==
LOC: JONCCHEMO 07:31
PROVIDERS: ATTEND Internal Medicine Hematology & Oncology
PROC: 3E013GC Introduction of Other Therapeutic Substance into Subcutaneous Tissue, Percutaneous Approach (ICD-10-PCS; principal; 2021-08-17)
DX: D3A.00 Benign carcinoid tumor of unspecified site (principal); Z76.89 Persons encountering health services in other specified circumstances
CPT/HCPCS: 36415; 80053; 85025; 96372; J2353

== ENCOUNTER 2021-09-26 07:11 | Day surgery (SDC) | payer OTHER ==
[2021-09-26] MEDS ORDERED: OCTREOTIDE ACETATE,MI-SPHERES (SANDOSTATIN LAR) 30 MG VIAL IM ONE (10:00)
[2021-09-26 15:12] LABS: BASO % 0.8 % (0-2.0); EOS % 0.8 % (0-4.5); HEMATOCRIT 41.8 % (32.4-45.2); HEMOGLOBIN 14.2 GM/dL (10.7-15.3); LYMPH % 26.2 % (8-40); MCH 29.2 pg (25.7-33.7); MEAN CELL VOLUME 86.1 fl (80-96); MEAN PLT VOLUME 8.7 fl (7.5-11.1); MONO % 8.1 % (3.8-10.2); NEUT % 64.1 % (42.8-82.8); PLATELET COUNT 210 10^3/uL (134-434); RBC 4.86 M/mm3 (3.60-5.2); RDW 14.1 % (11.6-15.6)
[2021-09-26 15:34] LABS: ALBUMIN 3.8 g/dl (3.4-5.0); BLOOD UREA NITROGEN 22.2 mg/dL (7-18); CALCIUM 9.9 mg/dL (8.5-10.1)
[2021-09-26 15:37] LABS: CREATININE 0.6 mg/dL (0.55-1.3)
[2021-09-26 15:39] LABS: BILIRUBIN,TOTAL 0.6 mg/dL (0.2-1); TOT PROT 7.7 g/dl (6.4-8.2)
[2021-09-26 16:55] VITALS: BP 138/81; PULSE 84; TEMP 98.1
== END 2021-09-26 16:59 | disposition home or self-care (01) ==
LOC: JONCCHEMO 07:11
PROVIDERS: ATTEND Internal Medicine Hematology & Oncology
PROC: 3E013GC Introduction of Other Therapeutic Substance into Subcutaneous Tissue, Percutaneous Approach (ICD-10-PCS; principal; 2021-09-26)
DX: D3A.00 Benign carcinoid tumor of unspecified site (principal)
CPT/HCPCS: 36415; 80053; 85025; 96372; J2353

== ENCOUNTER 2021-10-24 07:40 | Day surgery (SDC) | payer OTHER ==
[2021-10-24] MEDS ORDERED: OCTREOTIDE ACETATE,MI-SPHERES (SANDOSTATIN LAR) 30 MG VIAL IM ONE (10:00)
[2021-10-24 15:23] LABS: BASO % 0.6 % (0-2.0); EOS % 0.9 % (0-4.5); HEMATOCRIT 43.7 % (32.4-45.2); HEMOGLOBIN 14.8 GM/dL (10.7-15.3); LYMPH % 26.2 % (8-40); MCH 29.6 pg (25.7-33.7); MCHC 33.8 g/dl (32.0-36.0); MEAN CELL VOLUME 87.5 fl (80-96); MONO % 8.9 % (3.8-10.2); NEUT % 63.4 % (42.8-82.8); PLATELET COUNT 203 10^3/uL (134-434); RDW 13.9 % (11.6-15.6); WHITE BLOOD COUNT 5.7 K/mm3 (4.0-10.0)
[2021-10-24 15:44] LABS: ALBUMIN 3.8 g/dl (3.4-5.0); BLOOD UREA NITROGEN 16.8 mg/dL (7-18); CALCIUM 9.1 mg/dL (8.5-10.1)
[2021-10-24 15:47] LABS: CREATININE 0.5 mg/dL (0.55-1.3)
[2021-10-24 15:49] LABS: BILIRUBIN,TOTAL 0.5 mg/dL (0.2-1); TOT PROT 7.5 g/dl (6.4-8.2)
[2021-10-24 18:44] VITALS: BP 120/83; PULSE 66; TEMP 98.2
== END 2021-10-24 16:30 | disposition home or self-care (01) ==
LOC: JONCCHEMO 07:40
PROVIDERS: ATTEND Internal Medicine Hematology & Oncology
PROC: 3E013GC Introduction of Other Therapeutic Substance into Subcutaneous Tissue, Percutaneous Approach (ICD-10-PCS; principal; 2021-10-24)
DX: D3A.00 Benign carcinoid tumor of unspecified site (principal)
CPT/HCPCS: 36415; 80053; 83497; 85025; 86316; 96372; J2353

== ENCOUNTER 2021-11-21 07:11 | Day surgery (SDC) | payer OTHER ==
[2021-11-21] MEDS ORDERED: OCTREOTIDE ACETATE,MI-SPHERES (SANDOSTATIN LAR) 30 MG VIAL IM ONE (10:00)
[2021-11-21 15:46] LABS: BASO % 0.6 % (0-2.0); EOS % 1.1 % (0-4.5); HEMATOCRIT 41.1 % (32.4-45.2); LYMPH % 26.6 % (8-40); MCH 29.7 pg (25.7-33.7); MEAN CELL VOLUME 87.3 fl (80-96); MEAN PLT VOLUME 9.3 fl (7.5-11.1); MONO % 8.3 % (3.8-10.2); NEUT % 63.4 % (42.8-82.8); PLATELET COUNT 207 10^3/uL (134-434); RDW 13.8 % (11.6-15.6); WHITE BLOOD COUNT 5.9 K/mm3 (4.0-10.0)
[2021-11-21 16:16] LABS: ALBUMIN 3.7 g/dl (3.4-5.0); BLOOD UREA NITROGEN 23.5 mg/dL (7-18); CALCIUM 9.2 mg/dL (8.5-10.1)
[2021-11-21 16:20] LABS: CREATININE 0.6 mg/dL (0.55-1.3)
[2021-11-21 16:21] LABS: BILIRUBIN,TOTAL 0.6 mg/dL (0.2-1); TOT PROT 7.6 g/dl (6.4-8.2)
[2021-11-21 16:33] VITALS: BP 117/80; PULSE 74; TEMP 97.9
== END 2021-11-21 16:30 | disposition home or self-care (01) ==
LOC: JONCCHEMO 07:11
PROVIDERS: ATTEND Internal Medicine Hematology & Oncology
PROC: 3E013GC Introduction of Other Therapeutic Substance into Subcutaneous Tissue, Percutaneous Approach (ICD-10-PCS; principal; 2021-11-21)
DX: D3A.012 Benign carcinoid tumor of the ileum (principal); Z76.89 Persons encountering health services in other specified circumstances
CPT/HCPCS: 36415; 80053; 85025; 96372; J2353

== ENCOUNTER 2021-12-19 08:12 | Day surgery (SDC) | payer OTHER ==
[2021-12-19] MEDS ORDERED: OCTREOTIDE ACETATE,MI-SPHERES (SANDOSTATIN LAR) 30 MG VIAL IM ONE (10:00)
[2021-12-19 15:11] LABS: BASO % 0.7 % (0-2.0); EOS % 0.5 % (0-4.5); HEMATOCRIT 44.7 % (32.4-45.2); LYMPH % 24.8 % (8-40); MCH 29.3 pg (25.7-33.7); MCHC 33.5 g/dl (32.0-36.0); MEAN CELL VOLUME 87.6 fl (80-96); MEAN PLT VOLUME 9.3 fl (7.5-11.1); PLATELET COUNT 223 10^3/uL (134-434); RDW 13.6 % (11.6-15.6)
[2021-12-19 15:34] LABS: CALCIUM 9.3 mg/dL (8.5-10.1)
[2021-12-19 15:36] LABS: CREATININE 0.6 mg/dL (0.55-1.3)
[2021-12-19 15:38] LABS: BILIRUBIN,TOTAL 0.5 mg/dL (0.2-1); TOT PROT 7.9 g/dl (6.4-8.2)
[2021-12-19 16:26] VITALS: BP 104/71; PULSE 79; TEMP 98.3
== END 2021-12-19 16:30 | disposition home or self-care (01) ==
LOC: JONCCHEMO 08:12
PROVIDERS: ATTEND Internal Medicine Hematology & Oncology
PROC: 3E013GC Introduction of Other Therapeutic Substance into Subcutaneous Tissue, Percutaneous Approach (ICD-10-PCS; principal; 2021-12-19)
DX: D3A.012 Benign carcinoid tumor of the ileum (principal); Z76.89 Persons encountering health services in other specified circumstances
CPT/HCPCS: 36415; 80053; 83497; 85025; 86316; 96372; J2353

== ENCOUNTER 2022-01-16 07:02 | Day surgery (SDC) | payer OTHER ==
[2022-01-16 10:52] LABS: BASO % 0.8 % (0-2.0); EOS % 1.2 % (0-4.5); HEMATOCRIT 42.8 % (32.4-45.2); HEMOGLOBIN 14.3 GM/dL (10.7-15.3); LYMPH % 24.5 % (8-40); MCH 29.5 pg (25.7-33.7); MCHC 33.4 g/dl (32.0-36.0); MEAN CELL VOLUME 88.2 fl (80-96); MEAN PLT VOLUME 9.3 fl (7.5-11.1); MONO % 7.7 % (3.8-10.2); NEUT % 65.8 % (42.8-82.8); PLATELET COUNT 194 10^3/uL (134-434); RBC 4.85 M/mm3 (3.60-5.2); RDW 13.6 % (11.6-15.6); WHITE BLOOD COUNT 4.7 K/mm3 (4.0-10.0)
[2022-01-16 11:17] LABS: BLOOD UREA NITROGEN 15.1 mg/dL (7-18)
[2022-01-16 11:18] LABS: ALBUMIN 3.5 g/dl (3.4-5.0); CALCIUM 8.8 mg/dL (8.5-10.1)
[2022-01-16 11:21] LABS: CREATININE 0.7 mg/dL (0.55-1.3)
[2022-01-16 11:23] LABS: BILIRUBIN,TOTAL 0.6 mg/dL (0.2-1); TOT PROT 7.2 g/dl (6.4-8.2)
[2022-01-16] MEDS ORDERED: OCTREOTIDE ACETATE,MI-SPHERES (SANDOSTATIN LAR) 30 MG VIAL IM ONE (12:00)
[2022-01-16 15:13] VITALS: BP 136/62; PULSE 70; RESP 20; TEMP 97.8
== END 2022-01-16 12:45 | disposition home or self-care (01) ==
LOC: JONCCHEMO 07:02
PROVIDERS: ATTEND Internal Medicine Hematology & Oncology
PROC: 3E013GC Introduction of Other Therapeutic Substance into Subcutaneous Tissue, Percutaneous Approach (ICD-10-PCS; principal; 2022-01-16)
DX: C7A.012 Malignant carcinoid tumor of the ileum (principal)
CPT/HCPCS: 36415; 80053; 85025; 96372; J2353

== ENCOUNTER 2022-02-13 13:28 | Day surgery (SDC) | payer OTHER ==
[2022-02-13 17:04] LABS: BASO % 0.8 % (0-2.0); EOS % 1.3 % (0-4.5); HEMATOCRIT 42.8 % (32.4-45.2); HEMOGLOBIN 14.5 GM/dL (10.7-15.3); LYMPH % 30.5 % (8-40); MCH 29.9 pg (25.7-33.7); MCHC 33.8 g/dl (32.0-36.0); MEAN CELL VOLUME 88.5 fl (80-96); MEAN PLT VOLUME 9.2 fl (7.5-11.1); NEUT % 59.4 % (42.8-82.8); PLATELET COUNT 212 10^3/uL (134-434); RBC 4.84 M/mm3 (3.60-5.2); RDW 13.4 % (11.6-15.6); WHITE BLOOD COUNT 6.6 K/mm3 (4.0-10.0)
[2022-02-13 17:17] LABS: BLOOD UREA NITROGEN 17.6 mg/dL (7-18); CALCIUM 9.4 mg/dL (8.5-10.1)
[2022-02-13 17:18] LABS: ALBUMIN 3.8 g/dl (3.4-5.0); MAGNESIUM 2.3 mg/dL (1.8-2.4)
[2022-02-13 17:20] LABS: BILIRUBIN,DIRECT 0.1 mg/dL (0.0-0.2)
[2022-02-13 17:21] LABS: CREATININE 0.6 mg/dL (0.55-1.3)
[2022-02-13 17:22] LABS: BILIRUBIN,TOTAL 0.6 mg/dL (0.2-1); TOT PROT 7.8 g/dl (6.4-8.2)
[2022-02-13 18:46] VITALS: BP 117/76; PULSE 71; RESP 18; TEMP 98.2
== END 2022-02-13 17:00 | disposition home or self-care (01) ==
LOC: JONCCHEMO 13:28
PROVIDERS: ATTEND Internal Medicine Hematology & Oncology
PROC: 3E013GC Introduction of Other Therapeutic Substance into Subcutaneous Tissue, Percutaneous Approach (ICD-10-PCS; principal; 2022-02-13)
DX: C7A.012 Malignant carcinoid tumor of the ileum (principal); Z76.89 Persons encountering health services in other specified circumstances
CPT/HCPCS: 36415; 80048; 80076; 83735; 85025; 86316; 96372; J2353

== ENCOUNTER 2022-03-12 15:39 | Day surgery (SDC) | payer OTHER ==
[2022-03-12 14:35] LABS: BASO % 0.5 % (0-2.0); EOS % 0.9 % (0-4.5); HEMATOCRIT 43.4 % (32.4-45.2); HEMOGLOBIN 14.5 GM/dL (10.7-15.3); LYMPH % 20.7 % (8-40); MCH 29.5 pg (25.7-33.7); MCHC 33.3 g/dl (32.0-36.0); MEAN CELL VOLUME 88.4 fl (80-96); MEAN PLT VOLUME 8.8 fl (7.5-11.1); MONO % 9.8 % (3.8-10.2); NEUT % 68.1 % (42.8-82.8); PLATELET COUNT 216 10^3/uL (134-434); RDW 13.7 % (11.6-15.6); WHITE BLOOD COUNT 6.7 K/mm3 (4.0-10.0)
[2022-03-12 15:00] LABS: CALCIUM 9.4 mg/dL (8.5-10.1)
[2022-03-12 15:02] LABS: ALBUMIN 3.9 g/dl (3.4-5.0); BLOOD UREA NITROGEN 16.6 mg/dL (7-18); MAGNESIUM 2.6 mg/dL (1.8-2.4)
[2022-03-12 15:04] LABS: CREATININE 0.5 mg/dL (0.55-1.3)
[2022-03-12 15:05] LABS: BILIRUBIN,TOTAL 0.7 mg/dL (0.2-1); TOT PROT 7.9 g/dl (6.4-8.2)
[2022-03-12 15:06] LABS: BILIRUBIN,DIRECT 0.2 mg/dL (0.0-0.2)
[2022-03-12 17:08] VITALS: BP 134/72; PULSE 75; RESP 20; TEMP 97.5
== END 2022-03-12 17:09 | disposition home or self-care (01) ==
LOC: JONCCHEMO 15:39 → J7W 15:41 → JONCCHEMO 17:09
PROVIDERS: ATTEND Internal Medicine Hematology & Oncology
PROC: 3E013GC Introduction of Other Therapeutic Substance into Subcutaneous Tissue, Percutaneous Approach (ICD-10-PCS; principal; 2022-03-12)
DX: C7A.012 Malignant carcinoid tumor of the ileum (principal)
CPT/HCPCS: 36415; 76830-TC; 80048; 80076; 83735; 85025; 86316; 96372; J2353

== ENCOUNTER 2022-04-11 11:43 | Day surgery (SDC) | payer OTHER ==
[2022-04-11 12:13] LABS: BASO % 0.6 % (0-2.0); EOS % 0.5 % (0-4.5); HEMATOCRIT 43.7 % (32.4-45.2); HEMOGLOBIN 14.7 GM/dL (10.7-15.3); MCH 29.4 pg (25.7-33.7); MCHC 33.6 g/dl (32.0-36.0); MEAN CELL VOLUME 87.6 fl (80-96); MEAN PLT VOLUME 9.2 fl (7.5-11.1); MONO % 9.8 % (3.8-10.2); NEUT % 69.1 % (42.8-82.8); PLATELET COUNT 220 10^3/uL (134-434); RBC 4.99 M/mm3 (3.60-5.2); RDW 13.9 % (11.6-15.6); WHITE BLOOD COUNT 6.2 K/mm3 (4.0-10.0)
[2022-04-11 12:32] LABS: ALBUMIN 3.9 g/dl (3.4-5.0); CALCIUM 9.4 mg/dL (8.5-10.1); MAGNESIUM 2.2 mg/dL (1.8-2.4)
[2022-04-11 12:34] LABS: BLOOD UREA NITROGEN 20.2 mg/dL (7-18)
[2022-04-11 12:36] LABS: BILIRUBIN,DIRECT 0.2 mg/dL (0.0-0.2); CREATININE 0.6 mg/dL (0.55-1.3)
[2022-04-11 12:38] LABS: BILIRUBIN,TOTAL 0.7 mg/dL (0.2-1); TOT PROT 7.7 g/dl (6.4-8.2)
[2022-04-11 13:53] VITALS: BP 122/84; PULSE 81; RESP 18; TEMP 97.8
== END 2022-04-11 12:15 | disposition home or self-care (01) ==
LOC: JONCCHEMO 11:43
PROVIDERS: ATTEND Internal Medicine Hematology & Oncology
PROC: 3E013GC Introduction of Other Therapeutic Substance into Subcutaneous Tissue, Percutaneous Approach (ICD-10-PCS; principal; 2022-04-11)
DX: C7A.012 Malignant carcinoid tumor of the ileum (principal)
CPT/HCPCS: 36415; 80048; 80076; 83615; 83735; 85025; 86316; 96372; J2353

== ENCOUNTER 2022-05-09 11:58 | Day surgery (SDC) | payer OTHER ==
[2022-05-09 12:39] LABS: BASO % 0.6 % (0-2.0); EOS % 0.7 % (0-4.5); HEMATOCRIT 42.8 % (32.4-45.2); HEMOGLOBIN 14.6 GM/dL (10.7-15.3); LYMPH % 19.5 % (8-40); MCH 29.9 pg (25.7-33.7); MCHC 34.1 g/dl (32.0-36.0); MEAN CELL VOLUME 87.6 fl (80-96); MEAN PLT VOLUME 9.3 fl (7.5-11.1); MONO % 9.1 % (3.8-10.2); NEUT % 70.1 % (42.8-82.8); PLATELET COUNT 209 10^3/uL (134-434); RBC 4.89 M/mm3 (3.60-5.2); RDW 13.7 % (11.6-15.6); WHITE BLOOD COUNT 5.7 K/mm3 (4.0-10.0)
[2022-05-09 13:04] LABS: CALCIUM 9.1 mg/dL (8.5-10.1)
[2022-05-09 13:05] LABS: ALBUMIN 3.8 g/dl (3.4-5.0); BLOOD UREA NITROGEN 15.3 mg/dL (7-18); MAGNESIUM 2.2 mg/dL (1.8-2.4)
[2022-05-09 13:07] LABS: BILIRUBIN,DIRECT 0.2 mg/dL (0.0-0.2)
[2022-05-09 13:08] LABS: CREATININE 0.6 mg/dL (0.55-1.3)
[2022-05-09 13:09] LABS: BILIRUBIN,TOTAL 0.6 mg/dL (0.2-1); TOT PROT 7.6 g/dl (6.4-8.2)
[2022-05-09 16:01] VITALS: BP 144/89; PULSE 88; RESP 18; TEMP 98.2
== END 2022-05-09 12:30 | disposition home or self-care (01) ==
LOC: JONCCHEMO 11:58
PROVIDERS: ATTEND Internal Medicine Hematology & Oncology
PROC: 3E023GC Introduction of Other Therapeutic Substance into Muscle, Percutaneous Approach (ICD-10-PCS; principal; 2022-05-09)
DX: C7A.012 Malignant carcinoid tumor of the ileum (principal)
CPT/HCPCS: 36415; 80048; 80076; 83735; 85025; 86316; 96372; J2353

== ENCOUNTER 2022-06-12 17:22 | Day surgery (SDC) | payer OTHER ==
[2022-06-12 17:30] VITALS: BP 139/90; PULSE 77; RESP 20; TEMP 98
== END 2022-06-12 17:25 | disposition home or self-care (01) ==
LOC: JONCCHEMO 17:22
PROVIDERS: ATTEND Specialist
PROC: 3E013GC Introduction of Other Therapeutic Substance into Subcutaneous Tissue, Percutaneous Approach (ICD-10-PCS; principal; 2022-06-12)
DX: C7A.012 Malignant carcinoid tumor of the ileum (principal)
CPT/HCPCS: 96372; J2353

== ENCOUNTER 2022-07-10 10:25 | Day surgery (SDC) | payer OTHER ==
[2022-07-10] MEDS ORDERED: OCTREOTIDE ACETATE,MI-SPHERES (SANDOSTATIN LAR) 30 MG VIAL IM ONE (12:00)
[2022-07-10 17:01] VITALS: BP 146/91; PULSE 73; RESP 18; TEMP 97.8
== END 2022-07-10 12:20 | disposition home or self-care (01) ==
LOC: JONCCHEMO 10:25
PROVIDERS: ATTEND Specialist
PROC: 3E013GC Introduction of Other Therapeutic Substance into Subcutaneous Tissue, Percutaneous Approach (ICD-10-PCS; principal; 2022-07-10)
DX: C7A.012 Malignant carcinoid tumor of the ileum (principal)
CPT/HCPCS: 96372; J2353

== ENCOUNTER 2022-08-07 10:12 | Day surgery (SDC) | payer OTHER ==
[2022-08-07 11:19] LABS: BASO % 0.8 % (0-2.0); EOS % 0.5 % (0-4.5); HEMATOCRIT 42.5 % (32.4-45.2); HEMOGLOBIN 14.4 GM/dL (10.7-15.3); LYMPH % 21.2 % (8-40); MCH 30.2 pg (25.7-33.7); MCHC 33.9 g/dl (32.0-36.0); MEAN CELL VOLUME 89.2 fl (80-96); MEAN PLT VOLUME 9.3 fl (7.5-11.1); MONO % 6.4 % (3.8-10.2); NEUT % 71.1 % (42.8-82.8); PLATELET COUNT 220 10^3/uL (134-434); RBC 4.76 M/mm3 (3.60-5.2); RDW 13.4 % (11.6-15.6); WHITE BLOOD COUNT 5.9 K/mm3 (4.0-10.0)
[2022-08-07 11:41] LABS: ALBUMIN 3.9 g/dl (3.4-5.0); CALCIUM 9.5 mg/dL (8.5-10.1)
[2022-08-07 11:44] LABS: BILIRUBIN,DIRECT 0.2 mg/dL (0.0-0.2)
[2022-08-07 11:45] LABS: CREATININE 0.7 mg/dL (0.55-1.3)
[2022-08-07 11:46] LABS: BILIRUBIN,TOTAL 0.7 mg/dL (0.2-1); TOT PROT 7.9 g/dl (6.4-8.2)
[2022-08-07 11:47] LABS: BLOOD UREA NITROGEN 19.1 mg/dL (7-18)
[2022-08-07 16:40] VITALS: BP 155/93; PULSE 83; RESP 17; TEMP 98.2
== END 2022-08-07 11:45 | disposition home or self-care (01) ==
LOC: JONCCHEMO 10:12
PROVIDERS: ATTEND Internal Medicine Hematology & Oncology
PROC: 3E013GC Introduction of Other Therapeutic Substance into Subcutaneous Tissue, Percutaneous Approach (ICD-10-PCS; principal; 2022-08-07)
DX: C7A.012 Malignant carcinoid tumor of the ileum (principal)
CPT/HCPCS: 36415; 80048; 80076; 85025; 96372; J2353

== ENCOUNTER 2022-09-11 12:17 | Day surgery (SDC) | payer OTHER ==
[2022-09-11 13:14] LABS: BASO % 0.4 % (0-2.0); EOS % 0.2 % (0-4.5); HEMATOCRIT 41.1 % (32.4-45.2); HEMOGLOBIN 14.3 GM/dL (10.7-15.3); LYMPH % 14.9 % (8-40); MCH 30.3 pg (25.7-33.7); MCHC 34.9 g/dl (32.0-36.0); MEAN CELL VOLUME 86.9 fl (80-96); MEAN PLT VOLUME 9.3 fl (7.5-11.1); MONO % 11.3 % (3.8-10.2); NEUT % 73.2 % (42.8-82.8); PLATELET COUNT 192 10^3/uL (134-434); RBC 4.73 M/mm3 (3.60-5.2); RDW 13.6 % (11.6-15.6); WHITE BLOOD COUNT 7.8 K/mm3 (4.0-10.0)
[2022-09-11 13:47] LABS: ALBUMIN 3.9 g/dl (3.4-5.0); CALCIUM 9.3 mg/dL (8.5-10.1)
[2022-09-11 13:48] LABS: BLOOD UREA NITROGEN 12.6 mg/dL (7-18)
[2022-09-11 13:50] LABS: BILIRUBIN,DIRECT 0.3 mg/dL (0.0-0.2); CREATININE 0.7 mg/dL (0.55-1.3)
[2022-09-11 13:52] LABS: TOT PROT 7.8 g/dl (6.4-8.2)
[2022-09-11 15:26] VITALS: BP 135/79; PULSE 87; RESP 18; TEMP 98.1
== END 2022-09-11 14:50 | disposition home or self-care (01) ==
LOC: JONCCHEMO 12:17
PROVIDERS: ATTEND Specialist
DX: C7A.012 Malignant carcinoid tumor of the ileum (principal); Z76.89 Persons encountering health services in other specified circumstances
CPT/HCPCS: 36415; 80048; 80076; 82306; 85025; 96372; J2353

== ENCOUNTER 2022-10-09 13:31 | Day surgery (SDC) | payer OTHER ==
[2022-10-09 13:55] LABS: BASO % 0.8 % (0-2.0); EOS % 0.6 % (0-4.5); HEMATOCRIT 42.4 % (32.4-45.2); HEMOGLOBIN 14.6 GM/dL (10.7-15.3); MCH 30.1 pg (25.7-33.7); MCHC 34.4 g/dl (32.0-36.0); MEAN CELL VOLUME 87.4 fl (80-96); MEAN PLT VOLUME 9.7 fl (7.5-11.1); MONO % 10.8 % (3.8-10.2); NEUT % 64.8 % (42.8-82.8); PLATELET COUNT 188 10^3/uL (134-434); RBC 4.84 M/mm3 (3.60-5.2); RDW 13.5 % (11.6-15.6); WHITE BLOOD COUNT 5.1 K/mm3 (4.0-10.0)
[2022-10-09 14:18] LABS: POTASSIUM 4.3 mmol/L (3.5-5.1)
[2022-10-09 14:22] LABS: ALBUMIN 3.8 g/dl (3.4-5.0); CALCIUM 9.4 mg/dL (8.5-10.1)
[2022-10-09 14:25] LABS: BILIRUBIN,DIRECT 0.2 mg/dL (0.0-0.2)
[2022-10-09 14:26] LABS: CREATININE 0.7 mg/dL (0.55-1.3)
[2022-10-09 14:31] LABS: BILIRUBIN,TOTAL 0.6 mg/dL (0.2-1)
[2022-10-09] MEDS ORDERED: OCTREOTIDE ACETATE,MI-SPHERES (SANDOSTATIN LAR) 30 MG VIAL IM ONE (15:30)
[2022-10-09 16:25] VITALS: BP 147/93; PULSE 78; RESP 18; TEMP 98.1
== END 2022-10-09 15:55 | disposition home or self-care (01) ==
LOC: JONCCHEMO 13:31 → J7W 13:36 → JONCCHEMO 15:55
PROVIDERS: ATTEND Registered Nurse
PROC: 3E013GC Introduction of Other Therapeutic Substance into Subcutaneous Tissue, Percutaneous Approach (ICD-10-PCS; principal; 2022-10-09)
DX: C7A.012 Malignant carcinoid tumor of the ileum (principal); Z76.89 Persons encountering health services in other specified circumstances
CPT/HCPCS: 36415; 80048; 80076; 85025; 96372; J2353

== ENCOUNTER 2022-11-13 11:13 | Day surgery (SDC) | payer OTHER ==
[2022-11-13 11:47] LABS: BASO % 0.7 % (0-2.0); EOS % 0.6 % (0-4.5); HEMATOCRIT 43.7 % (32.4-45.2); HEMOGLOBIN 14.9 GM/dL (10.7-15.3); LYMPH % 25.3 % (8-40); MCH 29.9 pg (25.7-33.7); MEAN PLT VOLUME 9.9 fl (7.5-11.1); MONO % 8.3 % (3.8-10.2); NEUT % 65.1 % (42.8-82.8); PLATELET COUNT 193 10^3/uL (134-434); RBC 4.96 M/mm3 (3.60-5.2); RDW 13.7 % (11.6-15.6); WHITE BLOOD COUNT 5.5 K/mm3 (4.0-10.0)
[2022-11-13 11:51] LABS: POTASSIUM 4.4 mmol/L (3.5-5.1)
[2022-11-13 11:53] LABS: CALCIUM 9.4 mg/dL (8.5-10.1)
[2022-11-13 11:54] LABS: ALBUMIN 3.8 g/dl (3.4-5.0)
[2022-11-13 11:56] LABS: BILIRUBIN,DIRECT 0.2 mg/dL (0.0-0.2)
[2022-11-13 11:57] LABS: CREATININE 0.8 mg/dL (0.55-1.3)
[2022-11-13 11:58] LABS: BILIRUBIN,TOTAL 0.7 mg/dL (0.2-1); TOT PROT 7.9 g/dl (6.4-8.2)
[2022-11-13 17:08] VITALS: BP 139/91; PULSE 91; RESP 18; TEMP 97.6
== END 2022-11-13 12:40 | disposition home or self-care (01) ==
LOC: JONCCHEMO 11:13 → J7W 11:14 → JONCCHEMO 12:40
PROVIDERS: ATTEND Specialist
DX: C7A.012 Malignant carcinoid tumor of the ileum (principal)
CPT/HCPCS: 36415; 80048; 80076; 85025; 96372; J2353

== ENCOUNTER 2022-12-11 11:20 | Day surgery (SDC) | payer OTHER ==
[2022-12-11] MEDS ORDERED: OCTREOTIDE ACETATE,MI-SPHERES (SANDOSTATIN LAR) 30 MG VIAL IM ONE (11:30)
[2022-12-11 12:04] LABS: BASO % 0.6 % (0-2.0); EOS % 0.9 % (0-4.5); HEMATOCRIT 42.4 % (32.4-45.2); HEMOGLOBIN 14.2 GM/dL (10.7-15.3); LYMPH % 23.6 % (8-40); MCH 29.4 pg (25.7-33.7); MCHC 33.6 g/dl (32.0-36.0); MEAN CELL VOLUME 87.5 fl (80-96); MEAN PLT VOLUME 9.8 fl (7.5-11.1); MONO % 8.6 % (3.8-10.2); NEUT % 66.3 % (42.8-82.8); PLATELET COUNT 189 10^3/uL (134-434); RBC 4.85 M/mm3 (3.60-5.2); WHITE BLOOD COUNT 5.3 K/mm3 (4.0-10.0)
[2022-12-11 12:26] LABS: POTASSIUM 4.2 mmol/L (3.5-5.1)
[2022-12-11 12:28] LABS: ALBUMIN 3.8 g/dl (3.4-5.0); CALCIUM 9.7 mg/dL (8.5-10.1)
[2022-12-11 12:30] LABS: BLOOD UREA NITROGEN 16.2 mg/dL (7-18)
[2022-12-11 12:31] LABS: BILIRUBIN,DIRECT 0.2 mg/dL (0.0-0.2)
[2022-12-11 12:32] LABS: CREATININE 0.8 mg/dL (0.55-1.3)
[2022-12-11 12:33] LABS: BILIRUBIN,TOTAL 0.7 mg/dL (0.2-1); TOT PROT 7.7 g/dl (6.4-8.2)
[2022-12-11 17:41] VITALS: BP 145/87; PULSE 87; RESP 20; TEMP 98.3
== END 2022-12-11 12:45 | disposition home or self-care (01) ==
LOC: JONCCHEMO 11:20 → J7W 11:20 → JONCCHEMO 12:45
PROVIDERS: ATTEND Specialist
PROC: 3E013GC Introduction of Other Therapeutic Substance into Subcutaneous Tissue, Percutaneous Approach (ICD-10-PCS; principal; 2022-12-11)
DX: C7A.012 Malignant carcinoid tumor of the ileum (principal); Z76.89 Persons encountering health services in other specified circumstances
CPT/HCPCS: 36415; 80048; 80076; 85025; 96372; J2353

== ENCOUNTER 2023-01-08 10:43 | Day surgery (SDC) | payer OTHER ==
[2023-01-08 11:22] LABS: BASO % 0.6 % (0-2.0); HEMATOCRIT 41.4 % (32.4-45.2); HEMOGLOBIN 13.8 GM/dL (10.7-15.3); MCHC 33.3 g/dl (32.0-36.0); MEAN CELL VOLUME 89.9 fl (80-96); MONO % 8.2 % (3.8-10.2); NEUT % 67.2 % (42.8-82.8); PLATELET COUNT 175 10^3/uL (134-434); RDW 13.7 % (11.6-15.6); WHITE BLOOD COUNT 5.7 K/mm3 (4.0-10.0)
[2023-01-08 11:43] LABS: POTASSIUM 4.1 mmol/L (3.5-5.1)
[2023-01-08 11:44] LABS: CALCIUM 9.2 mg/dL (8.5-10.1)
[2023-01-08 11:45] LABS: ALBUMIN 3.6 g/dl (3.4-5.0); BLOOD UREA NITROGEN 14.5 mg/dL (7-18)
[2023-01-08 11:47] LABS: BILIRUBIN,DIRECT 0.3 mg/dL (0.0-0.2)
[2023-01-08 11:48] LABS: CREATININE 0.8 mg/dL (0.55-1.3)
[2023-01-08 11:49] LABS: BILIRUBIN,TOTAL 0.6 mg/dL (0.2-1); TOT PROT 7.4 g/dl (6.4-8.2)
[2023-01-08 13:32] VITALS: BP 137/86; PULSE 81; RESP 20; TEMP 97.8
== END 2023-01-08 12:25 | disposition home or self-care (01) ==
LOC: JONCCHEMO 10:43 → J7W 10:44 → JONCCHEMO 12:25
PROVIDERS: ATTEND Specialist
DX: C7A.012 Malignant carcinoid tumor of the ileum (principal); Z76.89 Persons encountering health services in other specified circumstances
CPT/HCPCS: 36415; 80048; 80076; 85025; 96372; J2353

== ENCOUNTER 2023-02-12 11:24 | Day surgery (SDC) | payer OTHER ==
[2023-02-12 12:09] LABS: BASO % 0.5 % (0-2.0); EOS % 0.9 % (0-4.5); HEMATOCRIT 41.5 % (32.4-45.2); LYMPH % 23.5 % (8-40); MCH 29.9 pg (25.7-33.7); MCHC 33.6 g/dl (32.0-36.0); MEAN CELL VOLUME 88.8 fl (80-96); MEAN PLT VOLUME 9.9 fl (7.5-11.1); MONO % 7.1 % (3.8-10.2); PLATELET COUNT 180 10^3/uL (134-434); RBC 4.67 M/mm3 (3.60-5.2); WHITE BLOOD COUNT 5.6 K/mm3 (4.0-10.0)
[2023-02-12 12:26] LABS: POTASSIUM 4.3 mmol/L (3.5-5.1)
[2023-02-12 12:29] LABS: CALCIUM 9.2 mg/dL (8.5-10.1)
[2023-02-12 12:30] LABS: BLOOD UREA NITROGEN 18.7 mg/dL (7-18)
[2023-02-12] MEDS ORDERED: OCTREOTIDE ACETATE,MI-SPHERES (SANDOSTATIN LAR) 30 MG VIAL IM ONE (12:30)
[2023-02-12 12:32] LABS: BILIRUBIN,DIRECT 0.2 mg/dL (0.0-0.2)
[2023-02-12 12:33] LABS: CREATININE 0.8 mg/dL (0.55-1.3)
[2023-02-12 12:34] LABS: BILIRUBIN,TOTAL 0.8 mg/dL (0.2-1); TOT PROT 7.9 g/dl (6.4-8.2)
[2023-02-12 17:27] VITALS: BP 117/78; PULSE 75; RESP 20; TEMP 98.3
== END 2023-02-12 13:30 | disposition home or self-care (01) ==
LOC: JONCCHEMO 11:24 → J7W 11:32 → JONCCHEMO 13:30
PROVIDERS: ATTEND Specialist
PROC: 3E013GC Introduction of Other Therapeutic Substance into Subcutaneous Tissue, Percutaneous Approach (ICD-10-PCS; principal; 2023-02-12)
DX: C7A.012 Malignant carcinoid tumor of the ileum (principal); Z76.89 Persons encountering health services in other specified circumstances
CPT/HCPCS: 36415; 80048; 80076; 85025; 96372; J2353

== ENCOUNTER 2023-03-12 11:24 | Day surgery (SDC) | payer OTHER ==
[2023-03-12 12:03] LABS: BASO % 0.6 % (0-2.0); EOS % 0.8 % (0-4.5); HEMATOCRIT 42.1 % (32.4-45.2); LYMPH % 24.9 % (8-40); MCH 30.2 pg (25.7-33.7); MCHC 33.2 g/dl (32.0-36.0); MEAN CELL VOLUME 90.9 fl (80-96); MEAN PLT VOLUME 9.2 fl (7.5-11.1); MONO % 7.2 % (3.8-10.2); NEUT % 66.5 % (42.8-82.8); PLATELET COUNT 202 10^3/uL (134-434); RBC 4.63 M/mm3 (3.60-5.2); RDW 13.4 % (11.6-15.6); WHITE BLOOD COUNT 5.4 K/mm3 (4.0-10.0)
[2023-03-12 12:24] VITALS: BP 131/79; PULSE 89; RESP 20; TEMP 97.8
[2023-03-12 12:29] LABS: POTASSIUM 4.5 mmol/L (3.5-5.1)
[2023-03-12 12:31] LABS: CALCIUM 9.4 mg/dL (8.5-10.1)
[2023-03-12 12:32] LABS: BLOOD UREA NITROGEN 20.1 mg/dL (7-18)
[2023-03-12 12:34] LABS: BILIRUBIN,DIRECT 0.2 mg/dL (0.0-0.2); CREATININE 0.7 mg/dL (0.55-1.3)
[2023-03-12 12:36] LABS: BILIRUBIN,TOTAL 0.7 mg/dL (0.2-1); TOT PROT 7.9 g/dl (6.4-8.2)
== END 2023-03-12 12:00 | disposition home or self-care (01) ==
LOC: JONCCHEMO 11:24 → J7W 11:25 → JONCCHEMO 12:00
PROVIDERS: ATTEND Specialist
PROC: 3E013GC Introduction of Other Therapeutic Substance into Subcutaneous Tissue, Percutaneous Approach (ICD-10-PCS; principal; 2023-03-12)
DX: C7A.012 Malignant carcinoid tumor of the ileum (principal); Z76.89 Persons encountering health services in other specified circumstances
CPT/HCPCS: 36415; 80048; 80076; 85025; 96372; J2353

== ENCOUNTER 2023-04-11 09:49 | Day surgery (SDC) | payer OTHER ==
[2023-04-11] MEDS ORDERED: OCTREOTIDE ACETATE,MI-SPHERES (SANDOSTATIN LAR) 30 MG VIAL IM ONE (10:00)
[2023-04-11 10:11] LABS: BASO % 0.4 % (0-2.0); EOS % 1.2 % (0-4.5); HEMATOCRIT 41.9 % (32.4-45.2); HEMOGLOBIN 14.3 GM/dL (10.7-15.3); LYMPH % 21.8 % (8-40); MCH 30.3 pg (25.7-33.7); MCHC 34.1 g/dl (32.0-36.0); MEAN CELL VOLUME 88.8 fl (80-96); MEAN PLT VOLUME 9.4 fl (7.5-11.1); MONO % 7.4 % (3.8-10.2); NEUT % 69.2 % (42.8-82.8); PLATELET COUNT 194 10^3/uL (134-434); RBC 4.72 M/mm3 (3.60-5.2); RDW 13.4 % (11.6-15.6); WHITE BLOOD COUNT 4.9 K/mm3 (4.0-10.0)
[2023-04-11 10:31] LABS: POTASSIUM 3.9 mmol/L (3.5-5.1)
[2023-04-11 10:33] LABS: ALBUMIN 3.8 g/dl (3.4-5.0)
[2023-04-11 10:37] LABS: BILIRUBIN,DIRECT 0.2 mg/dL (0.0-0.2); CREATININE 0.7 mg/dL (0.55-1.3)
[2023-04-11 10:38] LABS: TOT PROT 7.6 g/dl (6.4-8.2)
[2023-04-11 10:40] LABS: BILIRUBIN,TOTAL 0.8 mg/dL (0.2-1)
[2023-04-11 11:06] VITALS: BP 144/83; PULSE 71; RESP 18; TEMP 98.1
== END 2023-04-11 11:00 | disposition home or self-care (01) ==
LOC: JONCCHEMO 09:49 → J7W 09:51 → JONCCHEMO 11:00
PROVIDERS: ATTEND Nurse Practitioner Family
PROC: 3E013GC Introduction of Other Therapeutic Substance into Subcutaneous Tissue, Percutaneous Approach (ICD-10-PCS; principal; 2023-04-11)
DX: Z76.89 Persons encountering health services in other specified circumstances (principal); C7A.012 Malignant carcinoid tumor of the ileum
CPT/HCPCS: 36415; 80048; 80076; 85025; 86316; 96372; J2353